=== PATIENT | male | born 1945 | race African-American/Black ===

== ENCOUNTER 2020-04-11 11:20 | Inpatient (IN) | payer OTHER, MEDICAID ==
[~2020-04-11] VITALS: Ht 185.4 cm; Wt 59.9 kg
[2020-04-11] MEDS ORDERED: Albuterol/Ipratropium 3ml neb HHN SCH (12:15)
[2020-04-11] MEDS ORDERED: Levalbuterol Inh UD 1.25mg/0.5ml ONE (12:19)
[2020-04-11] MEDS: Ipratropium 0.02% Inh Soln 2.5ml UD HHN SCH ×3 (12:25→13:15)
[2020-04-11] MEDS: Levalbuterol Inh UD 1.25mg/0.5ml HHN SCH ×3 (12:25→13:15)
[2020-04-11 12:30] VITALS: BP 150/87
[2020-04-11 12:33] LABS: HEMATOCRIT 48.1 % (42.0-52.0); HEMOGLOBIN 15.7 G/DL (14.2-18.0); MEAN CORPUSCULAR VOLUME 87 FL (80-99); PLATELET COUNT 275 K/UL (150-450); RED CELL DISTRIBUTION WIDTH 14.2 % (11.6-14.8); WHITE BLOOD COUNT 12.7 K/UL (4.8-10.8)
[2020-04-11 12:46] LABS: INR 1.2 (0.9-1.1)
[2020-04-11 13:00] LABS: ALANINE AMINOTRANSFERASE 14 U/L (12-78); ALBUMIN 2.6 G/DL (3.4-5.0); ALBUMIN/GLOBULIN RATIO 0.5 (1.0-2.7); ALKALINE PHOSPHATASE 61 U/L (46-116); ASPARTATE AMINO TRANSFERASE 27 U/L (15-37); BILIRUBIN,TOTAL 0.4 MG/DL (0.2-1.0); BLOOD UREA NITROGEN 68 mg/dL (7-18); CHLORIDE 104 MMOL/L (98-107); CREATININE 3.2 MG/DL (0.55-1.30); FERRITIN 779 NG/ML (8-388); LACTATE DEHYDROGENASE 199 U/L (81-234); POTASSIUM 4.4 MMOL/L (3.5-5.1); SODIUM 140 MMOL/L (136-145)
[2020-04-11 13:05] VITALS: BP 139/65
[2020-04-11 13:12] LABS: CARBON DIOXIDE 20 MMOL/L (21-32)
[2020-04-11] MEDS ORDERED: Azithromycin 500 MG in NS 275 ML IV ONE (13:15)
[2020-04-11] MEDS ORDERED: Enoxaparin 40mg Inj SUBQ ONE (13:15)
[2020-04-11] MEDS ORDERED: Piperacillin/Tazobactam 3.375 GM in NS 110 ML IVPB ONE (13:15)
[2020-04-11] MEDS ORDERED: dexAMETHasone 10mg/ml Inj IV ONE (13:15)
[2020-04-11 14:00] VITALS: BP 112/65
--- NOTE | 2020-04-11 14:48 | Emergency Room Report ---
History of Present Illness General Chief Complaint: General Complaint Source: Patient (Estiven Mckeon MD) Present Illness HPI 74-year-old female presents for evaluation. Brought in by EMS. Patient was in transit from [facility] to [facility] when he was hypoxic and tachycardic. Patient tested positive for Covid at [facility] ER. History of COPD. Patient was being transported when he remained tachycardic and hypoxic. Denies chest pain. Denies fevers or chills. States he was not aware he tested positive for Covid. No other aggravating relieving factors. 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 COVID-19 Screening: Positive COVID-19 COVID-19 Testing Source: this morning, per EMT (Estiven Mckeon MD) Patient History Past Medical History: COPD Past Surgical History: none Pertinent Family History: none Social History: Denies: smoking, alcohol use, drug use Immunizations: UTD Reviewed Nursing Documentation: PMH: Agreed; PSxH: Agreed (Estiven Mckeon MD) Review of Systems All Other Systems: negative except mentioned in HPI (Estiven Mckeon MD) Physical Exam Vital Signs Date Time Temp Pulse Resp B/P (MAP) Pulse Ox O2 Delivery O2 Flow Rate FiO2 04/11/20 11:20 98.2 120 18 136/86 (103) 96 Room Air 04/11/20 13:05 4.0 Sp02 EP Interpretation: reviewed, normal General Appearance: alert, GCS 15, non-toxic, mild distress Head: normocephalic, atraumatic Eyes: bilateral eye normal inspection, bilateral eye PERRL ENT: hearing grossly normal, normal pharynx, no angioedema, normal voice Neck: full range of motion, supple/symm/no masses Respiratory: chest non-tender, speaking full sentences, wheezing Cardiovascular #1: no edema, tachycardia Cardiovascular #2: 2+ carotid (R), 2+ carotid (L), 2+ radial (R), 2+ radial (L), 2+ dorsalis pedis (R), 2+ dorsalis pedis (L) Gastrointestinal: normal bowel sounds, non tender, soft, non-distended, no guarding, no rebound Rectal: deferred Genitourinary: normal inspection, no CVA tenderness Musculoskeletal: back normal, normal range of motion, gait/station normal, non- tender Neurologic: alert, motor strength/tone normal, oriented x3, sensory intact, responsive, speech normal Psychiatric: judgement/insight normal, memory normal, mood/affect normal, no suicidal/homicidal ideation Reflexes: 3+ bicep (R), 3+ bicep (L), 3+ tricep (R), 3+ tricep (L), 3+ knee (R), 3+ knee (L) Skin: other - See nursing notes Lymphatic: no adenopathy (Estiven Mckeon MD) Procedures Critical Care Time Critical Care Time i. I feel this is a highly complex case requiring extensive working including EKG/Rhythm strip, Xray/CT/US, Blood/urine lab work, repeat exams while in ED, and administration of strong opiates/narcotics for pain control, admission to hospital or close patient follow up. Total time: 60 min bedside evaluation and treatment excludes procedures (EKG). Reason for critical care: Hypoxia, COPD, respiratory distress, Covid positive Possible complications: hypotension, hypertension, AL, shock, arrhythmias, metabolic acidosis, end organ damage, respiratory failure. Interventions: Labs, EKG, chest x-ray, isolation room. Breathing treatments. Decadron. Lovenox. Antibiotics. Reassessment of vitals. Course: Patient presenting with hypoxia, tachycardia. Diagnosed with Covid. Wheezing. Breathing treatment started in negative pressure room. O2 sats improved. Tachycardia improving with IV fluids. Inflammatory markers elevated. D-dimer elevated. Given Decadron and Lovenox. Given broad-spectrum antibiotics. Consultations: nursing staff, EMS, family Performed by: Dr Mckeon Tolerated well condition = serious j. because of unstable vital signs this patient had a condition that could potentially threaten life or limb. I feel this is a critical patient who requ ired my full attention while patient was considered critical. Total Critical Care Time excluding procedures was greater than 60 minutes (Estiven Mckeon MD) Medical Decision Making Diagnostic Impression: Primary Impression: COVID-19 Additional Impressions: COPD exacerbation Renal failure Qualified Codes: N19 - Unspecified kidney failure ER Course Hospital Course 74-year-old male presents with shortness of breath, tachycardia. History of COPD. Positive Covid Differential diagnoses include: Pneumonia, CHF exacerbation, pneumothorax, fluid overload Clinical course Patient placed on stretcher. In isolation. I wore full PPE. Patient wheezing. Tachycardic. Nebulizer treatment started. IV fluids.. Labs - noted leukocytosis, hemoglobin/hematocrit stable, BUN/creatinine elevated, lactic okay, inflammatory markers elevated, D-dimer elevated Sinus tachycardia no acute ischemic changes interpreted by me CXR - hyperinflated lungs. patchy infiltrates noted abx given. Broad-spectrum antibiotics given. Decadron given. Tachycardia improving with IV fluids. Respiratory status improving. Patient initially was transferred from [facility] to custodial facility because he did not meet criteria for admission. Patient cannot be sa debbie discharged at this time. Case discussed with and he agreed to the patient to his service for further care and support I feel this is a highly complex case requiring extensive working including EKG/Rhythm strip, Xray/CT/US, Blood/urine lab work, repeat exams while in ED, and administration of strong opiates/narcotics for pain control, admission to hospital or close patient follow up. Diagnosis - COPD exacerbation , renal failure, COVID 19 Patient admitted to telemetry in serious condition Laboratory Tests Test 04/11/20 12:05 White Blood Count 12.7 K/UL (4.8-10.8) H Red Blood Count 5.50 M/UL (4.70-6.10) Hemoglobin 15.7 G/DL (14.2-18.0) Hematocrit 48.1 % (42.0-52.0) Mean Corpuscular Volume 87 FL (80-99) Mean Corpuscular Hemoglobin 28.6 PG (27.0-31.0) Mean Corpuscular Hemoglobin Concent 32.7 G/DL (32.0-36.0) Red Cell Distribution Width 14.2 % (11.6-14.8) Platelet Count 275 K/UL (150-450) Mean Platelet Volume 6.9 FL (6.5-10.1) Neutrophils (%) (Auto) % (45.0-75.0) Lymphocytes (%) (Auto) % (20.0-45.0) Monocytes (%) (Auto) % (1.0-10.0) Eosinophils (%) (Auto) % (0.0-3.0) Basophils (%) (Auto) % (0.0-2.0) Differential Total Cells Counted 100 Neutrophils % (Manual) 92 % (45-75) H Lymphocytes % (Manual) 6 % (20-45) L Monocytes % (Manual) 2 % (1-10) Eosinophils % (Manual) 0 % (0-3) Basophils % (Manual) 0 % (0-2) Band Neutrophils 0 % (0-8) Platelet Estimate Adequate Platelet Morphology Normal Red Blood Cell Morphology Normal Prothrombin Time 12.6 SEC (9.30-11.50) H Prothromb Time International Ratio 1.2 (0.9-1.1) H Activated Partial Thromboplast Time 37 SEC (23-33) H D-Dimer 0.88 mg/L FEU (0.00-0.49) H Sodium Level 140 MMOL/L (136-145) Potassium Level 4.4 MMOL/L (3.5-5.1) Chloride Level 104 MMOL/L (98-107) Carbon Dioxide Level 20 MMOL/L (21-32) L Blood Urea Nitrogen 68 mg/dL (7-18) H Creatinine 3.2 MG/DL (0.55-1.30) H Estimat Glomerular Filtration Rate 19.0 mL/min (>60) Glucose Level 114 MG/DL (74-106) H Lactic Acid Level 1.30 mmol/L (0.4-2.0) Calcium Level 9.0 MG/DL (8.5-10.1) Ferritin 779 NG/ML (8-388) H Total Bilirubin 0.4 MG/DL (0.2-1.0) Aspartate Amino Transf (AST/SGOT) 27 U/L (15-37) Alanine Aminotransferase (ALT/SGPT) 14 U/L (12-78) Alkaline Phosphatase 61 U/L (46-116) Lactate Dehydrogenase 199 U/L (81-234) Troponin I 0.047 ng/mL (0.000-0.056) C-Reactive Protein, Quantitative 30.3 mg/dL (0.00-0.90) H Pro-B-Type Natriuretic Peptide 1429 pg/mL (0-125) H Total Protein 8.2 G/DL (6.4-8.2) Albumin 2.6 G/DL (3.4-5.0) L Globulin 5.6 g/dL Albumin/Globulin Ratio 0.5 (1.0-2.7) L Lipase 45 U/L (73-393) L (Estiven Mckeon MD) ER Course Assumed care of the patient from the previous provider at approximately 1430. Please refer to initial note for full history and physical exam. Briefly, 74-year-old male with history of COPD and recent diagnosis COVID-19 diverted en route to SNF from another hospital for persistent tachycardia and hypoxia. Patient treated for COPD exacerbation, COVID-19 pneumonia and for elevated D-dimer. Received steroids, antibiotics, breathing treatments, IV fluids. Stable condition oxygenating well. Patient accepted by Dr. Nava who is the assigned hospitalist for the patient's healthcare plan. (Efe Dai MD) EKG Diagnostic Results Troponin ordered: Yes Rate: tachycardiac Rhythm: NSR ST Segments: no acute changes ASA given to the pt in ED: No (Estiven Mckeon MD) Rhythm Strip Diag. Results EP Interpretation: yes Rhythm: NSR, no PVC's, no ectopy (Estiven Mckeon MD) Chest X-Ray Diagnostic Results Chest X-Ray Diagnostic Results : Chest X-Ray Ordered: Yes # of Views/Limited/Complete: 1 View Indication: Shortness of Breath EP Interpretation: Yes Interpretation: no effusion, no pneumothorax, other - Hyperinflated lungs. Bilateral infiltrates Impression: Other - PNA, COPD Electronically Signed by: Electronically signed by Estiven Mckeon MD (Estiven Mckeon MD) Last Vital Signs Date Time Temp Pulse Resp B/P (MAP) Pulse Ox O2 Delivery O2 Flow Rate FiO2 04/11/20 13:05 99.8 102 18 139/65 98 Nasal Cannula 4.0 Status: improved (Estiven Mckeon MD) Disposition: ADMITTED INPATIENT Condition: Serious Referrals: [facility],REFERRING (PCP) Estiven Mckeon MD Apr 11, 2020 14:47 Efe Dai MD Apr 11, 2020 16:01
--- NOTE | 2020-04-11 15:01 | Diagnostic Imaging Report ---
Indication: Shortness of breath Technique: One view of the chest Comparison: none Findings: Infiltrate is seen occupying the right upper lobe. There is a left pleural effusion. Atelectasis or scarring is seen in the left midlung. The right lower lobe appears somewhat hyperinflated. Impression: Right upper lobe infiltrate, likely pneumonia Left pleural effusion Other findings as noted
[2020-04-11 15:26] LABS: APPEARANCE,URINE SLIGHTLY CLOUDY; BILIRUBIN, URINE NEGATIVE (NEGATIVE); COLOR,URINE PALE YELLOW; GLUCOSE, URINE (UA) NEGATIVE (NEGATIVE); KETONES,URINE NEGATIVE (NEGATIVE); LEUKOCYTE ESTERASE ,URINE 2+ (NEGATIVE); NITRITE,URINE POSITIVE (NEGATIVE); PH,URINE 5 (4.5-8.0); PROTEIN,URINE 3+ (NEGATIVE); UROBILINOGEN,URINE NORMAL MG/DL (0.0-1.0)
[2020-04-11 15:30] VITALS: BP 100/55
[2020-04-11] MEDS ORDERED: QUETIAPINE FUMA50 MG ORAL (16:13)
[2020-04-11] MEDS ORDERED: TRELEGY ELLIPT1 EAC1 IH (16:13)
[2020-04-11] MEDS ORDERED: ASPIRIN325 MG ORAL (16:13)
[2020-04-11] MEDS ORDERED: GABAPENTIN100 MG ORAL (16:13)
[2020-04-11] MEDS ORDERED: FLOMAX0.4 MG ORAL (16:13)
[2020-04-11] MEDS ORDERED: LANTUS SOL100 UNIT/1 SUBQ (16:13)
[2020-04-11] MEDS ORDERED: PROAIR HFA8.5 GM INH (16:13)
[2020-04-11] MEDS ORDERED: ATORVASTATIN CA40 MG ORAL (16:13)
[2020-04-11] MEDS ORDERED: LEXAPRO10 MG ORAL (16:13)
[2020-04-11] MEDS ORDERED: FORTEO2.4 ML SUBQ (16:13)
[2020-04-11] MEDS ORDERED: METOPROLOL SUCC50 MG ORAL (16:13)
[2020-04-11] MEDS ORDERED: AMLODIPINE BES2.5 MG ORAL (16:13)
[2020-04-11 16:35] VITALS: BP 108/50
[2020-04-11] MEDS: Heparin 5000 units/ml inj SUBQ SCH (19:39)
[2020-04-11 20:00] VITALS: BP 112/57
[2020-04-11] MEDS ORDERED: cefTRIAXone 1 GM in D5W 55 ML IVPB SCH (21:00)
[2020-04-11] MEDS: Docusate 100mg cap ORAL SCH (21:00)
--- NOTE | 2020-04-11 21:00 | History and Physical Report ---
DATE OF ADMISSION: 04/11/2020 HISTORY OF PRESENT ILLNESS: This is a 74-year-old male who was brought in by paramedics. The patient was then transferred from [facility] to [facility]. However, he was found to be hypoxic and tachycardic. The patient is known to be COVID-19 positive. The patient was admitted to the hospital because he was hypoxic and tachycardic. At this time, the patient is unable to provide any further history. PAST MEDICAL HISTORY: Notable for COPD, [id number] pneumonia. SURGERIES: None reported. PERSONAL AND FAMILY HISTORY: None. HOME MEDICATIONS: Reviewed, reconciled in chart. REVIEW OF SYSTEMS: Not obtainable. PHYSICAL EXAMINATION: GENERAL: A 74-year-old male. HEENT: Unremarkable. LUNGS: Clear breath sounds bilaterally. ABDOMEN: Soft. EXTREMITIES: There is no edema. NEUROLOGICAL: Nonfocal. VITAL SIGNS: Blood pressure is 100/60, heart rate is 95, respirations are 22, O2 saturation 97% on 4 L oxygen. T-max 100.8 degrees Fahrenheit. LABORATORY DATA: Lab testing shows white count 12.7, otherwise normal CBC and chemistries. Creatinine 3.2, ferritin 779. CRP 30.3. Coags are notable for D-dimer of 0.8. Elevated INR, 1.2. Urinalysis shows a few pus cells. IMAGING STUDIES: X-ray chest is obtained, which shows right upper lobe infiltrate as well as small right effusion. IMPRESSION: 1. COVID-19 pneumonia. 2. Renal failure. 3. History of COPD. DISCUSSION: Admit to the hospital. Continue home medications. Start broad-spectrum antibiotics. Consult ID. Consult Nephrology. Start Decadron. Consider remdesivir. DVT prophylaxis. We will follow carefully. Derrek Nava M.D. DR: BELGICA JOB#: [id number] CC:
[2020-04-12] VITALS: BP 112/73
[2020-04-12 04:00] VITALS: BP 114/70
[2020-04-12 07:27] LABS: HEMATOCRIT 39.3 % (42.0-52.0); HEMOGLOBIN 13.7 G/DL (14.2-18.0); MEAN CORPUSCULAR VOLUME 84 FL (80-99); PLATELET COUNT 217 K/UL (150-450); RED BLOOD COUNT 4.68 M/UL (4.70-6.10)
[2020-04-12 07:31] LABS: BLOOD UREA NITROGEN 64 mg/dL (7-18); CALCIUM 8.5 MG/DL (8.5-10.1); CHLORIDE 105 MMOL/L (98-107); CREATININE 3.2 MG/DL (0.55-1.30); POTASSIUM 5.1 MMOL/L (3.5-5.1); SODIUM 140 MMOL/L (136-145)
[2020-04-12 07:45] LABS: CARBON DIOXIDE 24 MMOL/L (21-32)
[2020-04-12 08:00] VITALS: BP 139/81
[2020-04-12] MEDS: Heparin 5000 units/ml inj SUBQ SCH ×2 (08:20→20:42)
[2020-04-12] MEDS: Docusate 100mg cap ORAL SCH ×2 (08:21→20:42)
--- NOTE | 2020-04-12 08:46 | Consultation ---
History of Present Illness General Chief Complaint: General Complaint Reason for Consultation: DEYSI on CKD Present Illness HPI 74-year-old female presents for evaluation. Brought in by EMS. Patient was in transit from [facility] to [facility] when he was hypoxic and tachycardic. Patient tested positive for Covid at [facility] ER. History of COPD. Patient was being transported when he remained tachycardic and hypoxic. Denies chest pain. Denies fevers or chills. States he was not aware he tested positive for Covid. No other aggravating relieving factors. Denies any other associated symptoms Allergies: Uncoded Allergies: VITAMIN B (Allergy, Unknown, 04/11/20) Medication History Scheduled Albuterol Sulfate* (Proair Hfa*), 2 PUFFS INH Q6H, (Reported) Amlodipine Besylate* (Amlodipine Besylate*), 2.5 MG ORAL DAILY, (Reported) Aspirin* (Aspirin*), 325 MG ORAL DAILY, (Reported) Atorvastatin Calcium* (Atorvastatin Calcium*), 40 MG ORAL BEDTIME, (Reported) Escitalopram Oxalate* (Lexapro*), 5 MG ORAL DAILY, (Reported) Gabapentin* (Gabapentin*), 300 MG ORAL QHS, (Reported) Insulin Glargine (Lantus), 0 SUBQ BEDTIME, (Reported) Metoprolol Succinate* (Metoprolol Succinate*), 50 MG ORAL DAILY, (Reported) Quetiapine Fumarate* (Quetiapine Fumarate*), 50 MG ORAL DAILY, (Reported) Tamsulosin HCl (Flomax), 0.4 MG ORAL DAILY, (Reported) Teriparatide Acetate (Forteo), 20 MCG SUBQ DAILY, (Reported) Miscellaneous Medications Fluticasone/Umeclidin/Vilanter (Trelegy Ellipta 200-62.5-25), 1 EACH IH, (Reported) Patient History Healthcare decision maker Resuscitation status Advanced Directive on File Review of Systems All Other Systems: negative except mentioned in HPI Physical Exam General Appearance: no apparent distress, alert Lines, tubes and drains: peripheral HEENT: normocephalic, atraumatic Neck: non-tender, normal alignment, supple Respiratory/Chest: chest wall non-tender, lungs clear, normal breath sounds Cardiovascular/Chest: normal peripheral pulses, normal rate, tachycardia Abdomen: normal bowel sounds, non tender, soft, no organomegaly Extremities: normal range of motion, non-tender Neurologic: alert, oriented x 3 Last 24 Hour Vital Signs Date Time Temp Pulse Resp B/P (MAP) Pulse Ox O2 Delivery O2 Flow Rate FiO2 04/12/20 04:00 91 04/12/20 04:00 97.5 81 20 114/70 (85) 97 04/12/20 00:00 97.3 83 20 112/73 (86) 96 04/12/20 00:00 77 04/11/20 21:00 Nasal Cannula 4.0 Nasal Cannula 4.0 04/11/20 20:00 97.4 86 20 112/57 (75) 96 04/11/20 20:00 81 04/11/20 18:15 Nasal Cannula 4.0 04/11/20 16:46 96 28 108/60 97 Nasal Cannula 4.0 04/11/20 16:35 118 32 108/50 98 Nasal Cannula 4.0 04/11/20 15:30 102 32 100/55 98 Nasal Cannula 4.0 04/11/20 14:00 133 24 112/65 98 Nasal Cannula 4.0 04/11/20 13:05 99.8 102 18 139/65 98 Nasal Cannula 4.0 04/11/20 13:04 99.8 04/11/20 12:30 112 32 150/87 98 Nasal Cannula 4.0 04/11/20 12:10 112 28 Nasal Cannula 4.0 04/11/20 11:20 98.2 120 18 136/86 (103) 96 Room Air Intake and Output 04/11/20 04/12/20 19:00 07:00 Intake Total 1385 ml Output Total 60 ml Balance 1325 ml Intake Oral 0 ml IV Total 1385 ml Output Urine Total 60 ml # Voids 5 Laboratory Tests Test 04/11/20 12:05 04/11/20 15:10 04/12/20 05:06 White Blood Count 12.7 K/UL (4.8-10.8) H 4.0 K/UL (4.8-10.8) #L Red Blood Count 5.50 M/UL (4.70-6.10) 4.68 M/UL (4.70-6.10) L Hemoglobin 15.7 G/DL (14.2-18.0) 13.7 G/DL (14.2-18.0) L Hematocrit 48.1 % (42.0-52.0) 39.3 % (42.0-52.0) L Mean Corpuscular Volume 87 FL (80-99) 84 FL (80-99) Mean Corpuscular Hemoglobin 28.6 PG (27.0-31.0) 29.3 PG (27.0-31.0) Mean Corpuscular Hemoglobin Concent 32.7 G/DL (32.0-36.0) 34.9 G/DL (32.0-36.0) Red Cell Distribution Width 14.2 % (11.6-14.8) 16.0 % (11.6-14.8) H Platelet Count 275 K/UL (150-450) 217 K/UL (150-450) Mean Platelet Volume 6.9 FL (6.5-10.1) 8.0 FL (6.5-10.1) Neutrophils (%) (Auto) % (45.0-75.0) % (45.0-75.0) Lymphocytes (%) (Auto) % (20.0-45.0) % (20.0-45.0) Monocytes (%) (Auto) % (1.0-10.0) % (1.0-10.0) Eosinophils (%) (Auto) % (0.0-3.0) % (0.0-3.0) Basophils (%) (Auto) % (0.0-2.0) % (0.0-2.0) Differential Total Cells Counted 100 Neutrophils % (Manual) 92 % (45-75) H Pending Lymphocytes % (Manual) 6 % (20-45) L Pending Monocytes % (Manual) 2 % (1-10) Eosinophils % (Manual) 0 % (0-3) Basophils % (Manual) 0 % (0-2) Band Neutrophils 0 % (0-8) Platelet Estimate Adequate Pending Platelet Morphology Normal Pending Red Blood Cell Morphology Normal Prothrombin Time 12.6 SEC (9.30-11.50) H Prothromb Time International Ratio 1.2 (0.9-1.1) H Activated Partial Thromboplast Time 37 SEC (23-33) H D-Dimer 0.88 mg/L FEU (0.00-0.49) H Sodium Level 140 MMOL/L (136-145) 140 MMOL/L (136-145) Potassium Level 4.4 MMOL/L (3.5-5.1) 5.1 MMOL/L (3.5-5.1) Chloride Level 104 MMOL/L (98-107) 105 MMOL/L (98-107) Carbon Dioxide Level 20 MMOL/L (21-32) L 24 MMOL/L (21-32) Blood Urea Nitrogen 68 mg/dL (7-18) H 64 mg/dL (7-18) H Creatinine 3.2 MG/DL (0.55-1.30) H 3.2 MG/DL (0.55-1.30) H Estimat Glomerular Filtration Rate 19.0 mL/min (>60) 23.0 mL/min (>60) Glucose Level 114 MG/DL (74-106) H 205 MG/DL (74-106) H Lactic Acid Level 1.30 mmol/L (0.4-2.0) Calcium Level 9.0 MG/DL (8.5-10.1) 8.5 MG/DL (8.5-10.1) Ferritin 779 NG/ML (8-388) H Total Bilirubin 0.4 MG/DL (0.2-1.0) Aspartate Amino Transf (AST/SGOT) 27 U/L (15-37) Alanine Aminotransferase (ALT/SGPT) 14 U/L (12-78) Alkaline Phosphatase 61 U/L (46-116) Lactate Dehydrogenase 199 U/L (81-234) Troponin I 0.047 ng/mL (0.000-0.056) C-Reactive Protein, Quantitative 30.3 mg/dL (0.00-0.90) H Pro-B-Type Natriuretic Peptide 1429 pg/mL (0-125) H Total Protein 8.2 G/DL (6.4-8.2) Albumin 2.6 G/DL (3.4-5.0) L Globulin 5.6 g/dL Albumin/Globulin Ratio 0.5 (1.0-2.7) L Lipase 45 U/L (73-393) L Urine Color Pale yellow Urine Appearance Slightly cloudy Urine pH 5 (4.5-8.0) Urine Specific [place] 1.015 (1.005-1.035) Urine Protein 3+ (NEGATIVE) H Urine Glucose (UA) Negative (NEGATIVE) Urine Ketones Negative (NEGATIVE) Urine Blood 4+ (NEGATIVE) H Urine Nitrite Positive (NEGATIVE) H Urine Bilirubin Negative (NEGATIVE) Urine Urobilinogen Normal MG/DL (0.0-1.0) Urine Leukocyte Esterase 2+ (NEGATIVE) H Urine RBC 10-15 /HPF (0 - 0) H Urine WBC 20-30 /HPF (0 - 0) H Urine Squamous Epithelial Cells Occasional /LPF Urine Bacteria Many /HPF (NONE) H Height (Feet): 6 Height (Inches): 1.00 Weight (Pounds): 132 Medications Current Medications Medications (Trade) Dose Ordered Sig/Lewis Route PRN Reason Start Time Stop Time Status Last Admin Dose Admin Acetaminophen (Tylenol) 650 mg Q4H PRN ORAL For Pain 04/11/20 18:00 05/11/20 17:59 Azithromycin 500 mg/Dextrose 275 ml @ 275 mls/hr Q24H IV 04/12/20 09:00 04/17/20 08:59 Ceftriaxone Sodium 1 gm/ Dextrose 55 ml @ 110 mls/hr Q24H IVPB 04/11/20 21:00 04/18/20 20:59 04/11/20 21:00 Dextrose (Dextrose 50%) 25 ml Q30M PRN IV Hypoglycemia 04/11/20 18:00 07/10/20 17:59 Dextrose (Dextrose 50%) 50 ml Q30M PRN IV Hypoglycemia 04/11/20 18:00 07/10/20 17:59 Docusate Sodium (Colace) 100 mg EVERY 12 HOURS ORAL 04/11/20 21:00 05/11/20 20:59 04/12/20 08:21 Famotidine (Pepcid) 40 mg DAILY ORAL 04/12/20 09:00 07/11/20 08:59 04/12/20 08:21 Heparin Sodium (Porcine) (Heparin 5000 units/ml) 5,000 units EVERY 12 HOURS SUBQ 04/11/20 18:07 05/26/20 18:06 04/12/20 08:20 Sodium Chloride 1,000 ml @ 50 mls/hr Q20H IV 04/11/20 19:00 05/11/20 18:59 04/11/20 19:00 Assessment/Plan Diagnosis [place] I: #DEYSI on CKD #COVID pneumonia #hypoxemic resp failure #leukocytosis - check urine chem - check renal US - 1/2NS at 50 cc/hr - continue antibiotics - ceftriaxone and doxy - monitor BMP, mag and phos - strict I&Os - avoid nephrotoxins - monitor weights Time spent 65 min Rocco Messina M.D. Apr 12, 2020 08:46
[2020-04-12] MEDS: Azithromycin 500 MG in D5W 275 ML IV SCH (08:52)
[2020-04-12 12:00] VITALS: BP 138/82
[2020-04-12 14:37] LABS: APPEARANCE,URINE SLIGHTLY CLOUDY; BILIRUBIN, URINE NEGATIVE (NEGATIVE); COLOR,URINE PALE YELLOW; GLUCOSE, URINE (UA) NEGATIVE (NEGATIVE); KETONES,URINE NEGATIVE (NEGATIVE); LEUKOCYTE ESTERASE ,URINE 3+ (NEGATIVE); NITRITE,URINE POSITIVE (NEGATIVE); PH,URINE 5 (4.5-8.0); PROTEIN,URINE 3+ (NEGATIVE); UROBILINOGEN,URINE NORMAL MG/DL (0.0-1.0)
--- NOTE | 2020-04-12 15:21 | Pulmonology Progress Note ---
Subjective Interval Events: None new Constitutional: Reports: no symptoms HEENT: Repors: no symptoms Respiratory: Reports: no symptoms Cardiovascular: Reports: no symptoms Gastrointestinal/Abdominal: Reports: no symptoms Genitourinary: Reports: no symptoms Allergies: Uncoded Allergies: VITAMIN B (Allergy, Unknown, 04/11/20) Objective Last 24 Hour Vital Signs Date Time Temp Pulse Resp B/P (MAP) Pulse Ox O2 Delivery O2 Flow Rate FiO2 04/12/20 12:00 86 04/12/20 12:00 97.5 84 21 138/82 (100) 99 04/12/20 09:00 Nasal Cannula 4.0 Nasal Cannula 4.0 04/12/20 08:00 92 04/12/20 08:00 97.5 91 19 139/81 (100) 96 04/12/20 04:00 91 04/12/20 04:00 97.5 81 20 114/70 (85) 97 04/12/20 00:00 97.3 83 20 112/73 (86) 96 04/12/20 00:00 77 04/11/20 21:00 Nasal Cannula 4.0 Nasal Cannula 4.0 04/11/20 20:00 97.4 86 20 112/57 (75) 96 04/11/20 20:00 81 04/11/20 18:15 Nasal Cannula 4.0 04/11/20 16:46 96 28 108/60 97 Nasal Cannula 4.0 04/11/20 16:35 118 32 108/50 98 Nasal Cannula 4.0 04/11/20 15:30 102 32 100/55 98 Nasal Cannula 4.0 Intake and Output 04/11/20 04/12/20 19:00 07:00 Intake Total 1385 ml Output Total 60 ml Balance 1325 ml Intake Oral 0 ml IV Total 1385 ml Output Urine Total 60 ml # Voids 5 General Appearance: no acute distress HEENT: normocephalic Respiratory: chest wall non-tender, lungs clear Cardiovascular: normal peripheral pulses Abdomen: normal bowel sounds, soft, non tender Extremities: no cyanosis Laboratory Tests 04/12/20 05:06: White Blood Count 4.0#L, Red Blood Count 4.68L, Hemoglobin 13.7L, Hematocrit 39.3L, Mean Corpuscular Volume 84, Mean Corpuscular Hemoglobin 29.3, Mean Corpuscular Hemoglobin Concent 34.9, Red Cell Distribution Width 16.0H, Platelet Count 217, Mean Platelet Volume 8.0, Neutrophils (%) (Auto) , Lymphocytes (%) (Auto) , Monocytes (%) (Auto) , Eosinophils (%) (Auto) , Basophils (%) (Auto) , Differential Total Cells Counted 100, Neutrophils % (Manual) 95H, Lymphocytes % (Manual) 4L, Monocytes % (Manual) 1, Eosinophils % (Manual) 0, Basophils % (Manu al) 0, Band Neutrophils 0, Platelet Estimate Adequate, Platelet Morphology Normal, Sodium Level 140, Potassium Level 5.1, Chloride Level 105, Carbon Dioxide Level 24, Blood Urea Nitrogen 64H, Creatinine 3.2H, Estimat Glomerular Filtration Rate 23.0, Glucose Level 205H, Calcium Level 8.5 04/12/20 14:30: Urine Color Pale yellow, Urine Appearance Slightly cloudy, Urine pH 5, Urine Specific [place] 1.020, Urine Protein 3+H, Urine Glucose (UA) Negative, Urine Ketones Negative, Urine Blood 3+H, Urine Nitrite PositiveH, Urine Bilirubin Negative, Urine Urobilinogen Normal, Urine Leukocyte Esterase 3+H, Urine RBC 2- 4H, Urine WBC 30-40H, Urine Squamous Epithelial Cells Occasional, Urine Bacteria Few, Urine Random Creatinine [Pending], Urine Random Microalbumin [Pending], Urine Random Sodium 45, Urine Creatinine 121.2, Urine Microalbumin/Creatinine Ratio [Pending] Current Medications Medications (Trade) Dose Ordered Sig/Lewis Route PRN Reason Start Time Stop Time Status Last Admin Dose Admin Acetaminophen (Tylenol) 650 mg Q4H PRN ORAL For Pain 04/11/20 18:00 05/11/20 17:59 Azithromycin 500 mg/Dextrose 275 ml @ 275 mls/hr Q24H IV 04/12/20 09:00 04/17/20 08:59 04/12/20 08:52 Ceftriaxone Sodium 1 gm/ Dextrose 55 ml @ 110 mls/hr Q24H IVPB 04/11/20 21:00 04/18/20 20:59 04/11/20 21:00 Dextrose (Dextrose 50%) 25 ml Q30M PRN IV Hypoglycemia 04/11/20 18:00 07/10/20 17:59 Dextrose (Dextrose 50%) 50 ml Q30M PRN IV Hypoglycemia 04/11/20 18:00 07/10/20 17:59 Docusate Sodium (Colace) 100 mg EVERY 12 HOURS ORAL 04/11/20 21:00 05/11/20 20:59 04/12/20 08:21 Famotidine (Pepcid) 40 mg DAILY ORAL 04/12/20 09:00 07/11/20 08:59 04/12/20 08:21 Heparin Sodium (Porcine) (Heparin 5000 units/ml) 5,000 units EVERY 12 HOURS SUBQ 04/11/20 18:07 05/26/20 18:06 04/12/20 08:20 Sodium Chloride 1,000 ml @ 50 mls/hr Q20H IV 04/11/20 19:00 05/11/20 18:59 04/11/20 19:00 Assessment/Plan Assessment/Plan IMPRESSION: 1. COVID-19 pneumonia. 2. Renal failure. 3. History of COPD. DISCUSSION: Continue home medications. Continue broad-spectrum antibiotics. Consulted ID and Nephrology. Continue Decadron. Consider remdesivir (defer to ID). DVT prophylaxis. I will follow carefully. Added [place] Samuel Shoemaker Omar Syed MD Apr 12, 2020 15:21
[2020-04-12] MEDS: HYDROcodone/Acetamin 5/325 tab ORAL PRN (15:57)
[2020-04-12 16:00] VITALS: BP 128/72
--- NOTE | 2020-04-12 17:09 | Diagnostic Imaging Report ---
Indication: Acute renal failure Technique: Grayscale and duplex images of the kidneys, retroperitoneum, and bladder were obtained. Comparison: none Findings: Right kidney measures 11.2 cm in length. Left kidney measures 8.4 cm in length. Both kidneys demonstrate increased echogenicity. No hydronephrosis. There are renal cysts bilaterally. Normal inferior vena cava. Bladder is normal. Impression: Negative for hydronephrosis Echogenic kidneys bilaterally, associated with medical renal disease Incidental finding bilateral renal cysts.
--- NOTE | 2020-04-12 17:51 | Infectious Diseases Prog Note ---
Assessment/Plan Assessment/Plan Full consult dictated: A) 1) pneumonia - ? aspiration pna, ? cap 2) hx covid in past 3) pmh noted 4) allergies - vitamin B P) 1) ceftriaxone, flagyl, azithromycin 2) check labs, chest x-ray 3) d/w Dr. Nava 4) thank you Subjective Allergies: Uncoded Allergies: VITAMIN B (Allergy, Unknown, 04/11/20) Objective Last 24 Hour Vital Signs Date Time Temp Pulse Resp B/P (MAP) Pulse Ox O2 Delivery O2 Flow Rate FiO2 04/12/20 12:00 86 04/12/20 12:00 97.5 84 21 138/82 (100) 99 04/12/20 09:00 Nasal Cannula 4.0 Nasal Cannula 4.0 04/12/20 08:00 92 04/12/20 08:00 97.5 91 19 139/81 (100) 96 04/12/20 04:00 91 04/12/20 04:00 97.5 81 20 114/70 (85) 97 04/12/20 00:00 97.3 83 20 112/73 (86) 96 04/12/20 00:00 77 04/11/20 21:00 Nasal Cannula 4.0 Nasal Cannula 4.0 04/11/20 20:00 97.4 86 20 112/57 (75) 96 04/11/20 20:00 81 04/11/20 18:15 Nasal Cannula 4.0 Height (Feet): 6 Height (Inches): 1.00 Weight (Pounds): 132 Laboratory Tests Test 04/12/20 05:06 04/12/20 14:30 White Blood Count 4.0 K/UL (4.8-10.8) #L Red Blood Count 4.68 M/UL (4.70-6.10) L Hemoglobin 13.7 G/DL (14.2-18.0) L Hematocrit 39.3 % (42.0-52.0) L Mean Corpuscular Volume 84 FL (80-99) Mean Corpuscular Hemoglobin 29.3 PG (27.0-31.0) Mean Corpuscular Hemoglobin Concent 34.9 G/DL (32.0-36.0) Red Cell Distribution Width 16.0 % (11.6-14.8) H Platelet Count 217 K/UL (150-450) Mean Platelet Volume 8.0 FL (6.5-10.1) Neutrophils (%) (Auto) % (45.0-75.0) Lymphocytes (%) (Auto) % (20.0-45.0) Monocytes (%) (Auto) % (1.0-10.0) Eosinophils (%) (Auto) % (0.0-3.0) Basophils (%) (Auto) % (0.0-2.0) Differential Total Cells Counted 100 Neutrophils % (Manual) 95 % (45-75) H Lymphocytes % (Manual) 4 % (20-45) L Monocytes % (Manual) 1 % (1-10) Eosinophils % (Manual) 0 % (0-3) Basophils % (Manual) 0 % (0-2) Band Neutrophils 0 % (0-8) Platelet Estimate Adequate Platelet Morphology Normal Sodium Level 140 MMOL/L (136-145) Potassium Level 5.1 MMOL/L (3.5-5.1) Chloride Level 105 MMOL/L (98-107) Carbon Dioxide Level 24 MMOL/L (21-32) Blood Urea Nitrogen 64 mg/dL (7-18) H Creatinine 3.2 MG/DL (0.55-1.30) H Estimat Glomerular Filtration Rate 23.0 mL/min (>60) Glucose Level 205 MG/DL (74-106) H Calcium Level 8.5 MG/DL (8.5-10.1) Urine Color Pale yellow Urine Appearance Slightly cloudy Urine pH 5 (4.5-8.0) Urine Specific [place] 1.020 (1.005-1.035) Urine Protein 3+ (NEGATIVE) H Urine Glucose (UA) Negative (NEGATIVE) Urine Ketones Negative (NEGATIVE) Urine Blood 3+ (NEGATIVE) H Urine Nitrite Positive (NEGATIVE) H Urine Bilirubin Negative (NEGATIVE) Urine Urobilinogen Normal MG/DL (0.0-1.0) Urine Leukocyte Esterase 3+ (NEGATIVE) H Urine RBC 2-4 /HPF (0 - 0) H Urine WBC 30-40 /HPF (0 - 0) H Urine Squamous Epithelial Cells Occasional /LPF Urine Bacteria Few /HPF (NONE) Urine Random Creatinine Pending Urine Random Microalbumin Pending Urine Random Sodium 45 mmol/L (20-110) Urine Creatinine 121.2 MG/DL (30.0-125.0) Urine Microalbumin/Creatinine Ratio Pending Current Medications Medications (Trade) Dose Ordered Sig/Lewis Route PRN Reason Start Time Stop Time Status Last Admin Dose Admin Acetaminophen (Tylenol) 650 mg Q4H PRN ORAL pain 1-3 04/11/20 18:00 05/11/20 17:59 Acetaminophen/ Hydrocodone Bitart ([place] 5/325) 1 tab Q6H PRN ORAL pain 4-10 04/12/20 15:30 04/19/20 15:29 04/12/20 15:57 Azithromycin 500 mg/Dextrose 275 ml @ 275 mls/hr Q24H IV 04/12/20 09:00 04/17/20 08:59 04/12/20 08:52 Ceftriaxone Sodium 1 gm/ Dextrose 55 ml @ 110 mls/hr Q24H IVPB 04/11/20 21:00 04/18/20 20:59 04/11/20 21:00 Dextrose (Dextrose 50%) 25 ml Q30M PRN IV Hypoglycemia 04/11/20 18:00 07/10/20 17:59 Dextrose (Dextrose 50%) 50 ml Q30M PRN IV Hypoglycemia 04/11/20 18:00 07/10/20 17:59 Docusate Sodium (Colace) 100 mg EVERY 12 HOURS ORAL 04/11/20 21:00 05/11/20 20:59 04/12/20 08:21 Famotidine (Pepcid) 40 mg DAILY ORAL 04/12/20 09:00 07/11/20 08:59 04/12/20 08:21 Heparin Sodium (Porcine) (Heparin 5000 units/ml) 5,000 units EVERY 12 HOURS SUBQ 04/11/20 18:07 05/26/20 18:06 04/12/20 08:20 Sodium Chloride 1,000 ml @ 50 mls/hr Q20H IV 04/11/20 19:00 05/11/20 18:59 04/12/20 17:30 Be Proctor MD Apr 12, 2020 17:51
[2020-04-12 20:00] VITALS: BP 145/87
--- NOTE | 2020-04-12 20:30 | Consultation ---
DATE OF CONSULTATION: 04/12/2020 INFECTIOUS DISEASE CONSULTATION CONSULTING PHYSICIAN: Be Proctor MD. ATTENDING PHYSICIAN: Derrek Nava MD. REFERRING PHYSICIAN: Derrek Nava MD. REASON FOR CONSULTATION: Pneumonia, COVID infection, fevers, leukocytosis. CHIEF COMPLAINT: The patient's chief complaint into the hospital is COPD exacerbation, short of breath, pneumonia. HISTORY OF PRESENT ILLNESS: This is a very pleasant 74-year-old male who comes into [facility] with hypoxia and COPD exacerbation. The patient was noted to have pneumonia on chest x-ray. He is currently in COVID isolation. I think COVID testing here is negative. I discussed with Dr. Nava, it looks like he has a history of COVID infection in the past. It is unclear how long, but seems more remote than recent in discussion with Dr. Nava. It looks like [facility] and he went to an [facility]. It is unclear how he was treated for the COVID in the past. The patient was noted on chest x-ray to have pneumonia. This certainly could be related to COVID infection. However, he also could have based on location, aspiration pneumonia or community-acquired pneumonia. The patient will be placed on Rocephin, azithromycin, and Flagyl. Case was discussed with Dr. Nava. At this time because of what sounds like a past history of COVID, we will hold off on steroids, dexamethasone but he might need it if he does not improve. Clinically, he seems to be fairly stable at this time. REVIEW OF SYSTEMS: CONSTITUTIONAL: The patient had low-grade fevers, but currently is afebrile. HEAD AND NECK: No head pain or neck pain. CARDIAC: No chest pain. PULMONARY: Mild shortness of breath. No hemoptysis or secretions. No chest pain. GASTROINTESTINAL: No nausea, vomiting, or diarrhea. GENITOURINARY: No Oneal. No dysuria or frequency. SKIN: No rash. NEUROLOGICAL: No seizures. Generalized fatigue. No focal weakness. No joint pain or leg pain. PAST MEDICAL HISTORY: The patient has a past medical history of being positive for COVID in the past. The patient has history of renal failure and COPD. Unclear history of hypertension or diabetes. ALLERGIES: Vitamin D. SOCIAL HISTORY: I believe currently negative for smoking, alcohol, drug abuse. FAMILY HISTORY: Noncontributory. MEDICATIONS: Upon reviewing the MAR, he is on following medications. He is on hydrocodone, acetaminophen, azithromycin, Rocephin, Flagyl, docusate, heparin, dexamethasone, acetaminophen, Xopenex, and albuterol. Outside medications noted and reconciliated. PHYSICAL EXAMINATION: VITAL SIGNS: Temperature is 97.5, pulse 86, respiratory rate 21, blood pressure 138/82. Saturation 99% on 4 L. T-max 99.7. GENERAL: Alert, responsive, seems to be oriented. HEAD AND NECK: Oral exam, no thrush. Eye exam, no icterus. Normocephalic. Neck is supple. No JVD. No shortness of breath noted. HEART: Regular. No gallop or murmur. LUNGS: Few bilateral rhonchi and rales, more so on the right. ABDOMEN: Soft. Positive bowel sounds. Nontender. SKIN: No rash. MUSCULOSKELETAL: No effusions. Legs are without cellulitis. PERIPHERAL VASCULAR: No cyanosis or gangrene. GENITOURINARY: No Oneal. LINE SITES: Without phlebitis. NEUROLOGIC: Intact. Alert and oriented. LABORATORY DATA: White count on admission 12.7, now white count is 4.0, hemoglobin 13.7. Creatinine is 3.2. LFTs noted. CRP is 30.3. IMAGING: Chest x-ray showed right upper lobe infiltrate, likely pneumonia. COVID testing here is pending, but outside COVID testing was positive. ASSESSMENT AND PLAN: 1. The patient has history of COVID-19 infection. Upon reviewing the records it is unclear if he was tested positive at the ER of [facility] when he was being transferred to a group home facility. Unclear how old is the COVID diagnosis. Of note, his CRP is elevated significantly. Continue antibiotics. We will change to Zosyn and azithromycin and consider also vancomycin. If he has been at [facility] or recent hospitalization consider MRSA and gram negatives in addition to aspiration pathogens. Continue vancomycin, Zosyn, and azithromycin for now and check followup laboratories and chest x-ray. Continue treatment for pneumonia, possible bacterial pneumonia. COVID infection, I would consider steroids, as the patient has hypoxia and elevated CRP. Remdesivir relatively is not recommended in a patient with renal failure with GFR less than 30, which the patient certainly has. Continue Zosyn, vancomycin, and azithromycin. Again, consider dexamethasone. Case was discussed with Dr. Nava. Continue treatment for possible bacterial pneumonia and COVID infection. Isolation for COVID infection with pneumonia. 2. Renal failure. 3. COVID-19 infection history. 4. The patient is anemic. 5. No history of diabetes and hypertension. 6. Renal failure. Treatment per Renal and Medicine. 7. Allergy to vitamin D. 8. Social history is negative. 9. Family history is noncontributory. 10. MAR is noted. 11. Case was discussed with RN. 12. COVID isolation. 13. Case was discussed with Dr. Nava. Be Proctor M.D. DR: ALEXANDER JOB#: [id number] CC:
[2020-04-12] MEDS ORDERED: metroNIDAZOLE 500mg tab ORAL SCH (22:00)
[2020-04-13] VITALS (7 sets, daily range): BP systolic 128–158; BP diastolic 85–92
[2020-04-13 07:24] LABS: HEMATOCRIT 39.2 % (42.0-52.0); HEMOGLOBIN 13.2 G/DL (14.2-18.0); MEAN CORPUSCULAR VOLUME 86 FL (80-99); PLATELET COUNT 184 K/UL (150-450); RED BLOOD COUNT 4.54 M/UL (4.70-6.10); RED CELL DISTRIBUTION WIDTH 16.3 % (11.6-14.8); WHITE BLOOD COUNT 6.7 K/UL (4.8-10.8)
[2020-04-13 07:49] LABS: ALBUMIN 2.1 G/DL (3.4-5.0); ALBUMIN/GLOBULIN RATIO 0.5 (1.0-2.7); BILIRUBIN,TOTAL 0.2 MG/DL (0.2-1.0); CALCIUM 8.7 MG/DL (8.5-10.1); CREATININE 2.8 MG/DL (0.55-1.30)
[2020-04-13] MEDS: dexAMETHasone 10mg/ml Inj IV SCH (08:10)
[2020-04-13] MEDS: HYDROcodone/Acetamin 5/325 tab ORAL PRN (08:11)
[2020-04-13] MEDS: Azithromycin 500 MG in D5W 275 ML IV SCH (08:12)
[2020-04-13] MEDS: Docusate 100mg cap ORAL SCH ×2 (08:13→20:26)
[2020-04-13] MEDS: Heparin 5000 units/ml inj SUBQ SCH ×2 (08:13→20:25)
--- NOTE | 2020-04-13 09:40 | Nephrology Progress Note ---
Assessment/Plan Plan #DEYSI on CKD #COVID pneumonia #hypoxemic resp failure #leukocytosis - check urine chem - check renal US - 1/2NS at 50 cc/hr - continue antibiotics - ceftriaxone and doxy - monitor BMP, mag and phos - strict I&Os - avoid nephrotoxins - monitor weights Time spent 65 min Subjective ROS Limited/Unobtainable: No Constitutional: Reports: weakness HEENT: Denies: no symptoms, eye pain, blurred vision, tearing, double vision, ear pain, ear discharge, nose pain, nose congestion, throat pain, throat swelling, mouth pain, mouth swelling, other Genitourinary: Denies: no symptoms, burning, discharge, frequency, flank pain, hematuria, incontinence, pain, urgency, other Neurologic/Psychiatric: Denies: no symptoms, anxiety, depressed, emotional problems, headache, numbness, paresthesia, pre-existing deficit, seizure, tingling, tremors, weakness, other Subjective Cr downtrending breathing stable Objective Objective Last 24 Hour Vital Signs Date Time Temp Pulse Resp B/P (MAP) Pulse Ox O2 Delivery O2 Flow Rate FiO2 04/13/20 04:00 97.4 78 21 153/92 (112) 96 04/13/20 04:00 81 04/13/20 00:00 97.2 77 21 146/85 (105) 97 04/12/20 22:00 Nasal Cannula 4.0 Nasal Cannula 4.0 04/12/20 21:00 Nasal Cannula 4.0 Nasal Cannula 4.0 04/12/20 20:00 92 04/12/20 20:00 97.5 86 21 145/87 (106) 97 04/12/20 16:00 98.2 80 20 128/72 (90) 99 04/12/20 16:00 80 04/12/20 12:00 86 04/12/20 12:00 97.5 84 21 138/82 (100) 99 Intake and Output 04/12/20 04/13/20 19:00 07:00 # Voids 3 3 # Bowel Movements 1 Laboratory Tests 04/12/20 14:30: Urine Color Pale yellow, Urine Appearance Slightly cloudy, Urine pH 5, Urine Specific [place] 1.020, Urine Protein 3+H, Urine Glucose (UA) Negative, Urine Ketones Negative, Urine Blood 3+H, Urine Nitrite PositiveH, Urine Bilirubin Negative, Urine Urobilinogen Normal, Urine Leukocyte Esterase 3+H, Urine RBC 2- 4H, Urine WBC 30-40H, Urine Squamous Epithelial Cells Occasional, Urine Bacteria Few, Urine Random Creatinine [Pending], Urine Random Microalbumin [Pending], Urine Random Sodium 45, Urine Creatinine 121.2, Urine Microalbumin/Creatinine Ratio [Pending] 04/13/20 06:25: White Blood Count 6.7#, Red Blood Count 4.54L, Hemoglobin 13.2L, Hematocrit 39.2L, Mean Corpuscular Volume 86, Mean Corpuscular Hemoglobin 29.1, Mean Corpuscular Hemoglobin Concent 33.7, Red Cell Distribution Width 16.3H, Platelet Count 184, Mean Platelet Volume 6.8, Neutrophils (%) (Auto) , Lymphocytes (%) (Auto) , Monocytes (%) (Auto) , Eosinophils (%) (Auto) , Basophils (%) (Auto) , Neutrophils % (Manual) [Pending], Lymphocytes % (Manual) [Pending], Platelet Estimate [Pending], Platelet Morphology [Pending], Sodium Level 142, Potassium Level 5.0, Chloride Level 110H, Carbon Dioxide Level 23, Anion Gap 9, Blood Urea Nitrogen 65H, Creatinine 2.8H, Estimat Glomerular Filtration Rate 26.9, Glucose Level 166H, Calcium Level 8.7, Phosphorus Level 4.0, Magnesium Level 1.9, Total Bilirubin 0.2, Aspartate Amino Transf (AST/SGOT) 15, Alanine Aminotransferase (ALT/SGPT) 12, Alkaline Phosphatase 46, Total Protein 6.5, Albumin 2.1L, Globulin 4.4, Albumin/Globulin Ratio 0.5L Height (Feet): 6 Height (Inches): 1.00 Weight (Pounds): 132 General Appearance: no apparent distress, alert EENT: PERRL/EOMI, normal ENT inspection Neck: non-tender, normal alignment Cardiovascular: normal peripheral pulses, normal rate Respiratory/Chest: chest wall non-tender, lungs clear, rhonchi - bilaterally Abdomen: normal bowel sounds, non tender, soft Neurologic: alert, oriented x 3 Rocco Messina M.D. Apr 13, 2020 09:40
--- NOTE | 2020-04-13 10:48 | Pulmonology Progress Note ---
Subjective ROS Limited/Unobtainable: No Interval Events: None new Constitutional: Reports: no symptoms HEENT: Repors: no symptoms Respiratory: Reports: no symptoms Cardiovascular: Reports: no symptoms Gastrointestinal/Abdominal: Reports: no symptoms Genitourinary: Reports: no symptoms Allergies: Uncoded Allergies: VITAMIN B (Allergy, Unknown, 04/11/20) Subjective pt reports severe chronic leg/back pain despite am dose of [place]; pain scale 7/10 Objective Last 24 Hour Vital Signs Date Time Temp Pulse Resp B/P (MAP) Pulse Ox O2 Delivery O2 Flow Rate FiO2 04/13/20 09:00 Nasal Cannula 4.0 Nasal Cannula 4.0 04/13/20 08:00 98.7 84 19 128/89 (102) 96 04/13/20 04:00 97.4 78 21 153/92 (112) 96 04/13/20 04:00 81 04/13/20 00:00 97.2 77 21 146/85 (105) 97 04/12/20 22:00 Nasal Cannula 4.0 Nasal Cannula 4.0 04/12/20 21:00 Nasal Cannula 4.0 Nasal Cannula 4.0 04/12/20 20:00 92 04/12/20 20:00 97.5 86 21 145/87 (106) 97 04/12/20 16:00 98.2 80 20 128/72 (90) 99 04/12/20 16:00 80 04/12/20 12:00 86 04/12/20 12:00 97.5 84 21 138/82 (100) 99 Intake and Output 04/12/20 04/13/20 19:00 07:00 # Voids 3 3 # Bowel Movements 1 Objective pt laying in bed; reports some ambulation yesterday General Appearance: no acute distress HEENT: normocephalic, mucous membranes moist Respiratory: chest wall non-tender, lungs clear Cardiovascular: normal peripheral pulses Abdomen: normal bowel sounds, soft, non tender Extremities: no cyanosis, no edema Microbiology Date/Time Source Procedure Growth Status 04/11/20 15:10 Urine,Clean Catch Urine Culture - Preliminary Gram Negative Ash Resulted 04/11/20 12:05 Blood Blood Culture - Preliminary NO GROWTH AFTER 24 HOURS Resulted 04/11/20 12:05 Blood Blood Culture - Preliminary NO GROWTH AFTER 24 HOURS Resulted Laboratory Tests 04/12/20 14:30: Urine Color Pale yellow, Urine Appearance Slightly cloudy, Urine pH 5, Urine Specific [place] 1.020, Urine Protein 3+H, Urine Glucose (UA) Negative, Urine Ketones Negative, Urine Blood 3+H, Urine Nitrite PositiveH, Urine Bilirubin Negative, Urine Urobilinogen Normal, Urine Leukocyte Esterase 3+H, Urine RBC 2- 4H, Urine WBC 30-40H, Urine Squamous Epithelial Cells Occasional, Urine Bacteria Few, Urine Random Creatinine [Pending], Urine Random Microalbumin [Pending], Urine Random Sodium 45, Urine Creatinine 121.2, Urine Microalbumin/Creatinine Ratio [Pending] 04/13/20 06:25: White Blood Count 6.7#, Red Blood Count 4.54L, Hemoglobin 13.2L, Hematocrit 39.2L, Mean Corpuscular Volume 86, Mean Corpuscular Hemoglobin 29.1, Mean Corpuscular Hemoglobin Concent 33.7, Red Cell Distribution Width 16.3H, Platelet Count 184, Mean Platelet Volume 6.8, Neutrophils (%) (Auto) , Lymphocytes (%) (Auto) , Monocytes (%) (Auto) , Eosinophils (%) (Auto) , Basophils (%) (Auto) , Neutrophils % (Manual) [Pending], Lymphocytes % (Manual) [Pending], Platelet Estimate [Pending], Platelet Morphology [Pending], Sodium Level 142, Potassium Level 5.0, Chloride Level 110H, Carbon Dioxide Level 23, Anion Gap 9, Blood Urea Nitrogen 65H, Creatinine 2.8H, Estimat Glomerular Filtration Rate 26.9, Glucose Level 166H, Calcium Level 8.7, Phosphorus Level 4.0, Magnesium Level 1.9, Total Bilirubin 0.2, Aspartate Amino Transf (AST/SGOT) 15, Alanine Aminotransferase (ALT/SGPT) 12, Alkaline Phosphatase 46, Total Protein 6.5, Albumin 2.1L, Globulin 4.4, Albumin/Globulin Ratio 0.5L Current Medications Medications (Trade) Dose Ordered Sig/Lewis Route PRN Reason Start Time Stop Time Status Last Admin Dose Admin Acetaminophen (Tylenol) 650 mg Q4H PRN ORAL pain 1-3 04/11/20 18:00 05/11/20 17:59 04/12/20 18:10 Acetaminophen/ Hydrocodone Bitart ([place] 5/325) 1 tab Q6H PRN ORAL pain 4-10 04/12/20 15:30 04/19/20 15:29 04/13/20 08:11 Azithromycin 500 mg/Dextrose 275 ml @ 275 mls/hr Q24H IV 04/12/20 09:00 04/17/20 08:59 04/13/20 08:12 Dexamethasone Sodium Phosphate (Decadron 10mg/ ml Inj) 6 mg DAILY IV 04/13/20 09:00 04/22/20 09:01 04/13/20 08:10 Dextrose (Dextrose 50%) 25 ml Q30M PRN IV Hypoglycemia 04/11/20 18:00 07/10/20 17:59 Dextrose (Dextrose 50%) 50 ml Q30M PRN IV Hypoglycemia 04/11/20 18:00 07/10/20 17:59 Docusate Sodium (Colace) 100 mg EVERY 12 HOURS ORAL 04/11/20 21:00 05/11/20 20:59 04/13/20 08:13 Famotidine (Pepcid) 40 mg DAILY ORAL 04/12/20 09:00 07/11/20 08:59 04/13/20 08:07 Heparin Sodium (Porcine) (Heparin 5000 units/ml) 5,000 units EVERY 12 HOURS SUBQ 04/11/20 18:07 05/26/20 18:06 04/13/20 08:13 Linezolid (Zyvox) 600 mg EVERY 12 HOURS ORAL 04/12/20 21:00 04/17/20 20:59 04/13/20 08:07 Piperacillin Sod/ Tazobactam Sod 3.375 gm/Dextrose 100 ml @ 25 mls/hr EVERY 12 HOURS IVPB 04/12/20 21:00 04/17/20 20:59 04/13/20 08:11 Sodium Chloride 1,000 ml @ 50 mls/hr Q20H IV 04/11/20 19:00 05/11/20 18:59 04/12/20 17:30 Assessment/Plan Assessment/Plan 1. COVID-19 pneumonia. - Continue Decadron. - Consider remdesivir (defer to ID). - cont broad-spectrum Abx 2. Renal failure. - Renal US: Negative for hydronephrosis - per renal 3. History of COPD. 4. Severe chronic leg/bag pain - On norco 5. UTI; on abx per ID Continue home medications. Seen by ID and Nephrology. DVT prophylaxis. Miguel Duarte Apr 13, 2020 10:48 Derrek Nava MD Apr 13, 2020 11:09
[2020-04-13] MEDS: HYDROcodone/Acetamin 10/325 tab ORAL PRN (20:56)
[2020-04-14] VITALS: BP 172/62
[2020-04-14] MEDS: HYDROcodone/Acetamin 10/325 tab ORAL PRN ×2 (01:07→09:26)
[2020-04-14 04:00] VITALS: BP 190/85
[2020-04-14 07:06] LABS: HEMOGLOBIN 13.3 G/DL (14.2-18.0); MEAN CORPUSCULAR VOLUME 89 FL (80-99); PLATELET COUNT 212 K/UL (150-450); RED BLOOD COUNT 4.52 M/UL (4.70-6.10); RED CELL DISTRIBUTION WIDTH 14.9 % (11.6-14.8); WHITE BLOOD COUNT 5.1 K/UL (4.8-10.8)
[2020-04-14 07:15] LABS: CREATININE 2.5 MG/DL (0.55-1.30); PHOSPHORUS 3.9 MG/DL (2.5-4.9); POTASSIUM 5.3 MMOL/L (3.5-5.1)
[2020-04-14 08:00] VITALS: BP 154/65
--- NOTE | 2020-04-14 08:47 | Consultation ---
History of Present Illness General Date patient seen: Apr 14, 2020 Chief Complaint: Reason for Consultation: Present Illness Allergies: Uncoded Allergies: VITAMIN B (Allergy, Unknown, 04/11/20) Medication History Scheduled Albuterol Sulfate* (Proair Hfa*), 2 PUFFS INH Q6H, (Reported) Amlodipine Besylate* (Amlodipine Besylate*), 2.5 MG ORAL DAILY, (Reported) Aspirin* (Aspirin*), 325 MG ORAL DAILY, (Reported) Atorvastatin Calcium* (Atorvastatin Calcium*), 40 MG ORAL BEDTIME, (Reported) Escitalopram Oxalate* (Lexapro*), 5 MG ORAL DAILY, (Reported) Gabapentin* (Gabapentin*), 300 MG ORAL QHS, (Reported) Insulin Glargine (Lantus), 0 SUBQ BEDTIME, (Reported) Metoprolol Succinate* (Metoprolol Succinate*), 50 MG ORAL DAILY, (Reported) Quetiapine Fumarate* (Quetiapine Fumarate*), 50 MG ORAL DAILY, (Reported) Tamsulosin HCl (Flomax), 0.4 MG ORAL DAILY, (Reported) Teriparatide Acetate (Forteo), 20 MCG SUBQ DAILY, (Reported) Miscellaneous Medications Fluticasone/Umeclidin/Vilanter (Trelegy Ellipta 200-62.5-25), 1 EACH IH, (Reported) Patient History Healthcare decision maker Resuscitation status Advanced Directive on File Physical Exam Last 24 Hour Vital Signs Date Time Temp Pulse Resp B/P (MAP) Pulse Ox O2 Delivery O2 Flow Rate FiO2 04/14/20 04:00 98.1 48 22 190/85 (120) 99 04/14/20 04:00 60 04/14/20 00:00 55 04/14/20 00:00 97.3 49 22 172/62 (98) 99 04/13/20 21:00 Nasal Cannula 4.0 Nasal Cannula 4.0 04/13/20 20:00 97.2 70 22 145/89 (107) 99 04/13/20 20:00 62 04/13/20 16:00 98.2 85 20 158/92 (114) 98 04/13/20 16:00 69 04/13/20 12:00 84 04/13/20 12:00 96.6 71 20 129/87 (101) 96 04/13/20 09:00 Nasal Cannula 4.0 Nasal Cannula 4.0 Intake and Output 04/13/20 04/14/20 19:00 07:00 Intake Total 550 ml 620 ml Balance 550 ml 620 ml Intake Oral 500 ml 120 ml IV Total 50 ml 500 ml # Voids 2 3 # Bowel Movements 3 3 Laboratory Tests Test 04/14/20 05:44 White Blood Count 5.1 K/UL (4.8-10.8) Red Blood Count 4.52 M/UL (4.70-6.10) L Hemoglobin 13.3 G/DL (14.2-18.0) L Hematocrit 40.0 % (42.0-52.0) L Mean Corpuscular Volume 89 FL (80-99) Mean Corpuscular Hemoglobin 29.4 PG (27.0-31.0) Mean Corpuscular Hemoglobin Concent 33.2 G/DL (32.0-36.0) Red Cell Distribution Width 14.9 % (11.6-14.8) H Platelet Count 212 K/UL (150-450) Mean Platelet Volume 6.8 FL (6.5-10.1) Neutrophils (%) (Auto) % (45.0-75.0) Lymphocytes (%) (Auto) % (20.0-45.0) Monocytes (%) (Auto) % (1.0-10.0) Eosinophils (%) (Auto) % (0.0-3.0) Basophils (%) (Auto) % (0.0-2.0) Neutrophils % (Manual) Pending Lymphocytes % (Manual) Pending Platelet Estimate Pending Platelet Morphology Pending Sodium Level 143 MMOL/L (136-145) Potassium Level 5.3 MMOL/L (3.5-5.1) H Chloride Level 109 MMOL/L (98-107) H Carbon Dioxide Level 28 MMOL/L (21-32) Anion Gap 7 mmol/L (5-15) Blood Urea Nitrogen 58 mg/dL (7-18) H Creatinine 2.5 MG/DL (0.55-1.30) H Estimat Glomerular Filtration Rate 30.7 mL/min (>60) Glucose Level 91 MG/DL (74-106) Calcium Level 9.0 MG/DL (8.5-10.1) Phosphorus Level 3.9 MG/DL (2.5-4.9) Magnesium Level 1.9 MG/DL (1.8-2.4) Height (Feet): 6 Height (Inches): 1.00 Weight (Pounds): 132 Medications Current Medications Medications (Trade) Dose Ordered Sig/Lewis Route PRN Reason Start Time Stop Time Status Last Admin Dose Admin Acetaminophen (Tylenol) 650 mg Q4H PRN ORAL pain 1-3 04/11/20 18:00 05/11/20 17:59 04/12/20 18:10 Acetaminophen/ Hydrocodone Bitart ([place] 10/325) 1 tab Q4H PRN ORAL pain 4-10 04/13/20 12:15 04/20/20 12:14 04/14/20 01:07 Azithromycin 500 mg/Dextrose 275 ml @ 275 mls/hr Q24H IV 04/12/20 09:00 04/17/20 08:59 04/13/20 08:12 Dexamethasone Sodium Phosphate (Decadron 10mg/ ml Inj) 6 mg DAILY IV 04/13/20 09:00 04/22/20 09:01 04/13/20 08:10 Dextrose (Dextrose 50%) 25 ml Q30M PRN IV Hypoglycemia 04/11/20 18:00 07/10/20 17:59 Dextrose (Dextrose 50%) 50 ml Q30M PRN IV Hypoglycemia 04/11/20 18:00 07/10/20 17:59 Docusate Sodium (Colace) 100 mg EVERY 12 HOURS ORAL 04/11/20 21:00 05/11/20 20:59 04/13/20 08:13 Famotidine (Pepcid) 40 mg DAILY ORAL 04/12/20 09:00 07/11/20 08:59 04/13/20 08:07 Heparin Sodium (Porcine) (Heparin 5000 units/ml) 5,000 units EVERY 12 HOURS SUBQ 04/11/20 18:07 05/26/20 18:06 04/13/20 20:25 Linezolid (Zyvox) 600 mg EVERY 12 HOURS ORAL 04/12/20 21:00 04/17/20 20:59 04/13/20 20:25 Piperacillin Sod/ Tazobactam Sod 3.375 gm/Dextrose 100 ml @ 25 mls/hr EVERY 12 HOURS IVPB 12/2/20 21:00 04/17/20 20:59 04/13/20 20:26 Sodium Chloride 1,000 ml @ 50 mls/hr Q20H IV 04/11/20 19:00 05/11/20 18:59 04/13/20 14:15 Assessment/Plan Assessment/Plan: (1) Lumbar DDD (2) Lumbar Spondylosis (3) Lumbar Radiculopathy (4) Covid 19+ seen dictated Nicholas Escobedo Apr 14, 2020 08:47
--- NOTE | 2020-04-14 08:55 | Nephrology Progress Note ---
Assessment/Plan Plan #DEYSI on CKD- improving #COVID pneumonia #hypoxemic resp failure #leukocytosis #HTN- accelerated - check renal US-> no hydro, medical renal disease - kayexalate for hyperK today - add amlodipine 10mg daily - 1/2NS at 50 cc/hr - continue antibiotics - zosyn and linezolid - monitor BMP, mag and phos - strict I&Os - avoid nephrotoxins - monitor weights Time spent 65 min Subjective ROS Limited/Unobtainable: No Subjective Cr downtrending breathing stable K 5.3 BP elevated renal US: Impression: Negative for hydronephrosis Echogenic kidneys bilaterally, associated with medical renal disease Incidental finding bilateral renal cysts. Objective Objective Last 24 Hour Vital Signs Date Time Temp Pulse Resp B/P (MAP) Pulse Ox O2 Delivery O2 Flow Rate FiO2 04/14/20 04:00 98.1 48 22 190/85 (120) 99 04/14/20 04:00 60 04/14/20 00:00 55 04/14/20 00:00 97.3 49 22 172/62 (98) 99 04/13/20 21:00 Nasal Cannula 4.0 Nasal Cannula 4.0 04/13/20 20:00 97.2 70 22 145/89 (107) 99 04/13/20 20:00 62 04/13/20 16:00 98.2 85 20 158/92 (114) 98 04/13/20 16:00 69 04/13/20 12:00 84 04/13/20 12:00 96.6 71 20 129/87 (101) 96 04/13/20 09:00 Nasal Cannula 4.0 Nasal Cannula 4.0 Intake and Output 04/13/20 04/14/20 19:00 07:00 Intake Total 550 ml 620 ml Balance 550 ml 620 ml Intake Oral 500 ml 120 ml IV Total 50 ml 500 ml # Voids 2 3 # Bowel Movements 3 3 Laboratory Tests 04/14/20 05:44: White Blood Count 5.1, Red Blood Count 4.52L, Hemoglobin 13.3L, Hematocrit 40.0L , Mean Corpuscular Volume 89, Mean Corpuscular Hemoglobin 29.4, Mean Corpuscular Hemoglobin Concent 33.2, Red Cell Distribution Width 14.9H, Platelet Count 212, Mean Platelet Volume 6.8, Neutrophils (%) (Auto) , Lymphocytes (%) (Auto) , Monocytes (%) (Auto) , Eosinophils (%) (Auto) , Basophils (%) (Auto) , Neutrophils % (Manual) [Pending], Lymphocytes % (Manual) [Pending], Platelet Estimate [Pending], Platelet Morphology [Pending], Sodium Level 143, Potassium Level 5.3H, Chloride Level 109H, Carbon Dioxide Level 28, Anion Gap 7, Blood Urea Nitrogen 58H, Creatinine 2.5H, Estimat Glomerular Filtration Rate 30.7, Glucose Level 91, Calcium Level 9.0, Phosphorus Level 3.9, Magnesium Level 1.9 Height (Feet): 6 Height (Inches): 1.00 Weight (Pounds): 132 Rocco Messina M.D. Apr 14, 2020 08:55
[2020-04-14] MEDS: Docusate 100mg cap ORAL SCH ×2 (09:00→20:50)
[2020-04-14] MEDS: dexAMETHasone 10mg/ml Inj IV SCH (09:27)
[2020-04-14] MEDS: Heparin 5000 units/ml inj SUBQ SCH ×2 (09:28→20:51)
[2020-04-14] MEDS: Azithromycin 500 MG in D5W 275 ML IV SCH (09:29)
[2020-04-14] MEDS ORDERED: Sodium Polystyrene Sulfonate 15gm Powder ORAL ONE (09:30)
--- NOTE | 2020-04-14 10:29 | Consultation ---
History of Present Illness General Chief Complaint: SOB Referring physician: Derrek Nava Reason for Consultation: Hypertension, tachy/yannick Present Illness HPI 74 yo M with PMHx CAD s/p PCI and stent placement, COPD with oxygen dependence at home, HTN, HPLD, DMII, CKD, and depression is admitted through the ER with SOB after being seen 04/09 at [facility] and treated for COVID-19 viral PNA. EKG at time of admission to [place] Apr 11 shows sinus tachycardia with PVCs and RBBB, since that time pt has been bradycardic and hypertensive, we are asked to see the patient for further evaluation and management of multiple cardiac issues. Allergies: Uncoded Allergies: VITAMIN B (Allergy, Unknown, 04/11/20) Medication History Scheduled Albuterol Sulfate* (Proair Hfa*), 2 PUFFS INH Q6H, (Reported) Amlodipine Besylate* (Amlodipine Besylate*), 2.5 MG ORAL DAILY, (Reported) Aspirin* (Aspirin*), 325 MG ORAL DAILY, (Reported) Atorvastatin Calcium* (Atorvastatin Calcium*), 40 MG ORAL BEDTIME, (Reported) Escitalopram Oxalate* (Lexapro*), 5 MG ORAL DAILY, (Reported) Gabapentin* (Gabapentin*), 300 MG ORAL QHS, (Reported) Insulin Glargine (Lantus), 0 SUBQ BEDTIME, (Reported) Metoprolol Succinate* (Metoprolol Succinate*), 50 MG ORAL DAILY, (Reported) Quetiapine Fumarate* (Quetiapine Fumarate*), 50 MG ORAL DAILY, (Reported) Tamsulosin HCl (Flomax), 0.4 MG ORAL DAILY, (Reported) Teriparatide Acetate (Forteo), 20 MCG SUBQ DAILY, (Reported) Miscellaneous Medications Fluticasone/Umeclidin/Vilanter (Trelegy Ellipta 200-62.5-25), 1 EACH IH, (Reported) Patient History Healthcare decision maker Resuscitation status Advanced Directive on File Review of Systems All Other Systems: negative except mentioned in HPI Physical Exam Last 24 Hour Vital Signs Date Time Temp Pulse Resp B/P (MAP) Pulse Ox O2 Delivery O2 Flow Rate FiO2 04/14/20 09:25 73 154/65 04/14/20 04:00 98.1 48 22 190/85 (120) 99 04/14/20 04:00 60 04/14/20 00:00 55 04/14/20 00:00 97.3 49 22 172/62 (98) 99 04/13/20 21:00 Nasal Cannula 4.0 Nasal Cannula 4.0 04/13/20 20:00 97.2 70 22 145/89 (107) 99 04/13/20 20:00 62 04/13/20 16:00 98.2 85 20 158/92 (114) 98 04/13/20 16:00 69 04/13/20 12:00 84 04/13/20 12:00 96.6 71 20 129/87 (101) 96 Intake and Output 04/13/20 04/14/20 19:00 07:00 Intake Total 550 ml 620 ml Balance 550 ml 620 ml Intake Oral 500 ml 120 ml IV Total 50 ml 500 ml # Voids 2 3 # Bowel Movements 3 3 Laboratory Tests Test 04/14/20 05:44 White Blood Count 5.1 K/UL (4.8-10.8) Red Blood Count 4.52 M/UL (4.70-6.10) L Hemoglobin 13.3 G/DL (14.2-18.0) L Hematocrit 40.0 % (42.0-52.0) L Mean Corpuscular Volume 89 FL (80-99) Mean Corpuscular Hemoglobin 29.4 PG (27.0-31.0) Mean Corpuscular Hemoglobin Concent 33.2 G/DL (32.0-36.0) Red Cell Distribution Width 14.9 % (11.6-14.8) H Platelet Count 212 K/UL (150-450) Mean Platelet Volume 6.8 FL (6.5-10.1) Neutrophils (%) (Auto) % (45.0-75.0) Lymphocytes (%) (Auto) % (20.0-45.0) Monocytes (%) (Auto) % (1.0-10.0) Eosinophils (%) (Auto) % (0.0-3.0) Basophils (%) (Auto) % (0.0-2.0) Neutrophils % (Manual) Pending Lymphocytes % (Manual) Pending Platelet Estimate Pending Platelet Morphology Pending Sodium Level 143 MMOL/L (136-145) Potassium Level 5.3 MMOL/L (3.5-5.1) H Chloride Level 109 MMOL/L (98-107) H Carbon Dioxide Level 28 MMOL/L (21-32) Anion Gap 7 mmol/L (5-15) Blood Urea Nitrogen 58 mg/dL (7-18) H Creatinine 2.5 MG/DL (0.55-1.30) H Estimat Glomerular Filtration Rate 30.7 mL/min (>60) Glucose Level 91 MG/DL (74-106) Calcium Level 9.0 MG/DL (8.5-10.1) Phosphorus Level 3.9 MG/DL (2.5-4.9) Magnesium Level 1.9 MG/DL (1.8-2.4) Height (Feet): 6 Height (Inches): 1.00 Weight (Pounds): 132 Medications Current Medications Medications (Trade) Dose Ordered Sig/Lewis Route PRN Reason Start Time Stop Time Status Last Admin Dose Admin Acetaminophen (Tylenol) 650 mg Q4H PRN ORAL pain 1-3 04/11/20 18:00 05/11/20 17:59 04/12/20 18:10 Acetaminophen/ Hydrocodone Bitart ([place] 10/325) 1 tab BID PRN ORAL pain 4-10 04/14/20 09:00 04/21/20 08:59 04/14/20 09:26 Amlodipine Besylate (Norvasc) 10 mg DAILY ORAL 04/14/20 09:30 05/14/20 09:29 04/14/20 09:25 Azithromycin 500 mg/Dextrose 275 ml @ 275 mls/hr Q24H IV 04/12/20 09:00 04/17/20 08:59 04/14/20 09:29 Dexamethasone Sodium Phosphate (Decadron 10mg/ ml Inj) 6 mg DAILY IV 04/13/20 09:00 04/22/20 09:01 04/14/20 09:27 Dextrose (Dextrose 50%) 25 ml Q30M PRN IV Hypoglycemia 04/11/20 18:00 07/10/20 17:59 Dextrose (Dextrose 50%) 50 ml Q30M PRN IV Hypoglycemia 04/11/20 18:00 07/10/20 17:59 Docusate Sodium (Colace) 100 mg EVERY 12 HOURS ORAL 04/11/20 21:00 05/11/20 20:59 04/13/20 08:13 Famotidine (Pepcid) 40 mg DAILY ORAL 04/12/20 09:00 07/11/20 08:59 04/14/20 09:24 Heparin Sodium (Porcine) (Heparin 5000 units/ml) 5,000 units EVERY 12 HOURS SUBQ 04/11/20 18:07 05/26/20 18:06 04/14/20 09:28 Hydralazine HCl (Apresoline) 10 mg EVERY 6 HOURS PRN IV For High Blood Pressure 04/14/20 09:00 07/13/20 08:59 Hydralazine HCl (Apresoline) 25 mg Q6HR ORAL 04/14/20 12:00 07/13/20 11:59 UNV Linezolid (Zyvox) 600 mg EVERY 12 HOURS ORAL 04/12/20 21:00 04/17/20 20:59 04/14/20 09:25 Piperacillin Sod/ Tazobactam Sod 3.375 gm/Dextrose 100 ml @ 25 mls/hr EVERY 12 HOURS IVPB 04/12/20 21:00 04/17/20 20:59 04/14/20 09:28 Sodium Chloride 1,000 ml @ 50 mls/hr Q20H IV 04/11/20 19:00 05/11/20 18:59 04/13/20 14:15 Assessment/Plan Status: stable Assessment/Plan: 1. COVID-19 viral PNA pt in isolation, on decadron and remdesivir per ID 2. HTN 3. CAD s/p PCI and stent 3. DEYSI on CKD 3. COPD 4. DMII - insulin dependent 5. UTI; on abx per ID 6. Hyperkalemia Increase hydralazine to 50mg bid, one dose Lasix IV 20mg. Echo pending. Sandra Monique PA-C Apr 14, 2020 10:29
--- NOTE | 2020-04-14 10:56 | Pulmonology Progress Note ---
Subjective ROS Limited/Unobtainable: No Interval Events: leg/back pain tolerable now Constitutional: Reports: no symptoms HEENT: Repors: no symptoms Respiratory: Reports: no symptoms Cardiovascular: Reports: no symptoms Gastrointestinal/Abdominal: Reports: no symptoms Genitourinary: Reports: no symptoms Allergies: Uncoded Allergies: VITAMIN B (Allergy, Unknown, 04/11/20) Subjective pt reports severe chronic leg/back pain despite am dose of Cardale; pain scale 7/10 Objective Last 24 Hour Vital Signs Date Time Temp Pulse Resp B/P (MAP) Pulse Ox O2 Delivery O2 Flow Rate FiO2 04/14/20 09:25 73 154/65 04/14/20 04:00 98.1 48 22 190/85 (120) 99 04/14/20 04:00 60 04/14/20 00:00 55 04/14/20 00:00 97.3 49 22 172/62 (98) 99 04/13/20 21:00 Nasal Cannula 4.0 Nasal Cannula 4.0 04/13/20 20:00 97.2 70 22 145/89 (107) 99 04/13/20 20:00 62 04/13/20 16:00 98.2 85 20 158/92 (114) 98 04/13/20 16:00 69 04/13/20 12:00 84 04/13/20 12:00 96.6 71 20 129/87 (101) 96 Intake and Output 04/13/20 04/14/20 19:00 07:00 Intake Total 550 ml 620 ml Balance 550 ml 620 ml Intake Oral 500 ml 120 ml IV Total 50 ml 500 ml # Voids 2 3 # Bowel Movements 3 3 Objective pt laying in bed; SBP as high as 190, with bradycardia; Cardiology consulted General Appearance: no acute distress HEENT: normocephalic, mucous membranes moist Respiratory: chest wall non-tender, lungs clear Cardiovascular: normal peripheral pulses Abdomen: normal bowel sounds, soft, non tender Extremities: no cyanosis, no edema Microbiology Date/Time Source Procedure Growth Status 04/12/20 14:30 Urine,Clean Catch Urine Culture - Final Escherichia Coli - Esbl Complete 04/11/20 15:10 Urine,Clean Catch Urine Culture - Final Escherichia Coli - Esbl Complete 04/11/20 12:05 Blood Blood Culture - Preliminary NO GROWTH AFTER 48 HOURS Resulted 04/11/20 12:05 Blood Blood Culture - Preliminary NO GROWTH AFTER 48 HOURS Resulted Laboratory Tests 04/14/20 05:44: White Blood Count 5.1, Red Blood Count 4.52L, Hemoglobin 13.3L, Hematocrit 40.0L , Mean Corpuscular Volume 89, Mean Corpuscular Hemoglobin 29.4, Mean Corpuscular Hemoglobin Concent 33.2, Red Cell Distribution Width 14.9H, Platelet Count 212, Mean Platelet Volume 6.8, Neutrophils (%) (Auto) , Lymphocytes (%) (Auto) , Mo nocytes (%) (Auto) , Eosinophils (%) (Auto) , Basophils (%) (Auto) , Differential Total Cells Counted 100, Neutrophils % (Manual) 85H, Lymphocytes % (Manual) 10L, Monocytes % (Manual) 5, Eosinophils % (Manual) 0, Basophils % (Manual) 0, Band Neutrophils 0, Platelet Estimate Adequate, Platelet Morphology Normal, Red Blood Cell Morphology Normal, Sodium Level 143, Potassium Level 5.3H , Chloride Level 109H, Carbon Dioxide Level 28, Anion Gap 7, Blood Urea Nitrogen 58H, Creatinine 2.5H, Estimat Glomerular Filtration Rate 30.7, Glucose Level 91, Calcium Level 9.0, Phosphorus Level 3.9, Magnesium Level 1.9 Current Medications Medications (Trade) Dose Ordered Sig/Lewis Route PRN Reason Start Time Stop Time Status Last Admin Dose Admin Acetaminophen (Tylenol) 650 mg Q4H PRN ORAL pain 1-3 04/11/20 18:00 05/11/20 17:59 04/12/20 18:10 Acetaminophen/ Hydrocodone Bitart ([place] 10/325) 1 tab BID PRN ORAL pain 4-10 04/14/20 09:00 04/21/20 08:59 04/14/20 09:26 Amlodipine Besylate (Norvasc) 10 mg DAILY ORAL 04/14/20 09:30 05/14/20 09:29 04/14/20 09:25 Aspirin (Ecotrin) 81 mg DAILY ORAL 04/15/20 09:00 05/30/20 08:59 UNV Azithromycin 500 mg/Dextrose 275 ml @ 275 mls/hr Q24H IV 04/12/20 09:00 04/17/20 08:59 04/14/20 09:29 Dexamethasone Sodium Phosphate (Decadron 10mg/ ml Inj) 6 mg DAILY IV 04/13/20 09:00 12/12/20 09:01 04/14/20 09:27 Dextrose (Dextrose 50%) 25 ml Q30M PRN IV Hypoglycemia 04/11/20 18:00 07/10/20 17:59 Dextrose (Dextrose 50%) 50 ml Q30M PRN IV Hypoglycemia 04/11/20 18:00 07/10/20 17:59 Docusate Sodium (Colace) 100 mg EVERY 12 HOURS ORAL 04/11/20 21:00 05/11/20 20:59 04/13/20 08:13 Famotidine (Pepcid) 40 mg DAILY ORAL 04/12/20 09:00 07/11/20 08:59 04/14/20 09:24 Furosemide (Lasix) 20 mg ONCE ONCE IV 04/14/20 10:45 04/14/20 10:46 UNV Heparin Sodium (Porcine) (Heparin 5000 units/ml) 5,000 units EVERY 12 HOURS SUBQ 04/11/20 18:07 05/26/20 18:06 04/14/20 09:28 Hydralazine HCl (Apresoline) 10 mg EVERY 6 HOURS PRN IV For High Blood Pressure 04/14/20 09:00 07/13/20 08:59 Hydralazine HCl (Apresoline) 50 mg EVERY 8 HOURS ORAL 04/14/20 10:45 07/13/20 11:59 UNV Linezolid (Zyvox) 600 mg EVERY 12 HOURS ORAL 04/12/20 21:00 04/17/20 20:59 04/14/20 09:25 Piperacillin Sod/ Tazobactam Sod 3.375 gm/Dextrose 100 ml @ 25 mls/hr EVERY 12 HOURS IVPB 04/12/20 21:00 04/17/20 20:59 04/14/20 09:28 Sodium Chloride 1,000 ml @ 50 mls/hr Q20H IV 04/11/20 19:00 05/11/20 18:59 04/13/20 14:15 Assessment/Plan Assessment/Plan 1. COVID-19 pneumonia. - Continue Decadron. - Consider remdesivir (defer to ID). - cont broad-spectrum Abx 2. Renal failure. - Renal US Negative for hydronephrosis - 04/14/2020 BUN and Cr improved - per renal 3. History of COPD. - Saturating 99% on 4 lpm NC 4. Severe chronic leg/bag pain - per pain management - Currently on 10 mg Cardale BID prn pain 5. DVT prophylaxis - On Lovenox 6. Hyperkalemia - K 5.3 - Kayexalate added - Lasix added 7. HTN - On Amlodipine - Hydralazine added - 2D echo pending, per cardio continue home medications. The care of this patient was discussed with my supervising physician Seen and examined by Dr. Nava as well Time spent for this case was approximately 31 minutes Miguel Duarte Apr 14, 2020 10:56
[2020-04-14 12:00] VITALS: BP 151/97
[2020-04-14] MEDS ORDERED: HydrALAZINE 25mg tab ORAL SCH (12:00)
[2020-04-14] MEDS: HydrALAZINE 25mg tab ORAL SCH ×3 (12:41→23:04)
--- NOTE | 2020-04-14 13:05 | Cardiology Report ---
APPROVED REPORT EKG Measurement Heart [id number] <Conclusion> Sinus tachycardia with frequent premature ventricular complexes Biatrial enlargement Left axis deviation Pulmonary disease pattern Incomplete right bundle branch block Inferior infarct, age undetermined Abnormal ECG
--- NOTE | 2020-04-14 13:53 | Diagnostic Imaging Report ---
Indication: Shortness of breath Technique: One view of the chest Comparison: 04/11/2020 Findings: Interim development of small focal patchy opacity at the left mid and lower lung. There is some scarring or atelectasis in the left mid and upper lung. Infiltrate in the right upper lobe, hyperinflation of the right lower lobe is again demonstrated. Left sided pleural thickening versus fluid is unchanged. Impression: New small left mid to lower lung patchy opacity, possibly a small focus of consolidation. Otherwise stable findings as described
--- NOTE | 2020-04-14 15:16 | Consultation ---
DATE OF CONSULTATION: 04/14/2020 PAIN MANAGEMENT CONSULTATION CONSULTING PHYSICIAN: Andrew Mendez MD. REFERRING PHYSICIAN: Derrek Nava MD. PHYSICIAN MEDICAL IMAGING TECHNICIAN: CAMRON Hernandez. CHIEF COMPLAINT: Back pain. HISTORY OF PRESENT ILLNESS: This is a 74-year-old male, who is being seen on the telemetry floor of [facility] for initial pain management consultation. The patient was admitted under care of Dr. Nava, transferred from [facility] to [facility] then was transferred to [facility], found to be tachycardic and hypoxic, COVID-19 positive as well as a history of COPD. At this time, the patient complains of chronic lower back pain with radiation to his lower extremities, rating it 8/10 and it is worst. Describes the pain as a shooting pain, worse with movement and is reduced with medication. He is on [place] 10/325 mg one tablet every four hours as needed for severe pain, which he has used two doses of in the last 24 hours. Reports that the pain is controlled with this medication, and we were consulted so the patient would have adequate pain control while here in the hospital. I discussed with the patient about opioid usage and he seems to understand. PAST MEDICAL HISTORY: COPD and pneumonia. SOCIAL HISTORY: Reports a history of smoking tobacco. ALLERGIES: Vitamin D. MEDICATIONS: [place], azithromycin, Rocephin, Flagyl, docusate, heparin, dexamethasone, Tylenol, Xopenex, and albuterol here in the hospital. REVIEW OF SYSTEMS: Denies rash, fever, chills, sweating, dizziness, drowsiness, blurred vision, sore throat, change in his weight. No nausea, vomiting, diarrhea, or blood in the stool or urine. No dysuria. PHYSICAL EXAMINATION: GENERAL: Alert, awake, and oriented. VITAL SIGNS: Blood pressure 109/85, heart rate 48, oxygen saturation 99%, respiratory rate 22, temperature 98.1 degrees Fahrenheit. HEENT: PERRLA. NECK: Range of motion is decreased due to the patient's condition. LUNGS: Decreased breath sounds bilaterally. HEART: S1 and S2, regular. ABDOMEN: Soft and nontender. BACK: Range of motion is decreased in flexion and extension. EXTREMITIES: Upper and lower extremity range of motion is decreased due to the patient's condition. No cyanosis. No clubbing. Sensory is reduced. Reflexes are not obtainable. No adenopathy. ASSESSMENT AND PLAN: This is a 74-year-old male with lumbar degenerative disease, lumbar spondylosis, lumbar radiculopathy, COVID-19 positive. The patient will be continued on [place] reduced to twice a day as needed for severe pain. Parameters will be set to hold opiates for oversedation or lethargy or systolic blood pressure below 90 or diastolic blood pressure below 60, respiratory rate 12, oxygen saturation below 94%, or heart rate below 69. The patient was discussed with Dr. Mendez and Dr. Mendez concurred. We will follow up with the patient. Thank you very much for the courtesy of this consultation. Andrew Mendez M.D. CAMRON Hernandez DR: ANISHA JOB#: [id number] CC:
[2020-04-14 16:00] VITALS: BP 130/78
--- NOTE | 2020-04-14 18:35 | Infectious Diseases Prog Note ---
Assessment/Plan Assessment/Plan ASSESSMENT AND PLAN: 1. esbl e.coli uti, covid-19 infection, pneumonia, sepsis, fevers, leukocytosis - meropenem - day # 3 abx - dexamethasone - day # 3 - monitor clinically, hypoxia, labs and chest x-ray 2. Renal failure. 3. COVID-19 infection history. 4. The patient is anemic. 5. No history of diabetes and hypertension. 6. Renal failure. Treatment per Renal and Medicine. 7. Allergy to vitamin D. 8. Social history is negative. 9. Family history is noncontributory. 10. MAR is noted. 11. Case was discussed with RN. 12. COVID isolation. 13. Case was discussed with Dr. Nava. Subjective Constitutional: Reports: fatigue; Denies: fever HEENT: Denies: congestion Respiratory: Denies: shortness of breath Cardiovascular: Denies: chest pain Gastrointestinal/Abdominal: Denies: nausea, vomiting, diarrhea Genitourinary: Reports: other - no contreras Neurologic: Denies: headache Psychiatric: Denies: depression Skin: Denies: rash Hematologic: Denies: bleeding Musculoskeletal: Denies: pain Allergies: Uncoded Allergies: VITAMIN B (Allergy, Unknown, 04/11/20) Objective Last 24 Hour Vital Signs Date Time Temp Pulse Resp B/P (MAP) Pulse Ox O2 Delivery O2 Flow Rate FiO2 04/14/20 14:24 151/97 04/14/20 12:41 151/97 04/14/20 12:00 98.1 85 21 151/97 (115) 95 04/14/20 12:00 61 04/14/20 09:25 73 154/65 04/14/20 09:00 Nasal Cannula 4.0 Nasal Cannula 4.0 04/14/20 08:00 98.3 73 22 154/65 (94) 95 04/14/20 08:00 58 04/14/20 04:00 98.1 48 22 190/85 (120) 99 04/14/20 04:00 60 04/14/20 00:00 55 04/14/20 00:00 97.3 49 22 172/62 (98) 99 04/13/20 21:00 Nasal Cannula 4.0 Nasal Cannula 4.0 04/13/20 20:00 97.2 70 22 145/89 (107) 99 04/13/20 20:00 62 Height (Feet): 6 Height (Inches): 1.00 Weight (Pounds): 132 General Appearance: no acute distress HEENT: normocephalic, atraumatic, anicteric, mucous membranes moist Respiratory/Chest: crackles/rales, rhonchi - bilaterally Cardiovascular: normal rate, regular rhythm, no gallop/murmur, no JVD Abdomen: normal bowel sounds, soft, non tender, no organomegaly, non distended Genitourinary: other - no contreras Extremities: no cyanosis Skin: no rash 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 There is some scarring or atelectasis in the left mid and upper lung. Infiltrate in the right upper lobe, hyperinflation of the right lower lobe is again demonstrated. Left sided pleural thickening versus fluid is unchanged. Impression: New small left mid to lower lung patchy opacity, possibly a small focus of consolidation. Otherwise stable findings as described Microbiology Date/Time Source Procedure Growth Status 04/12/20 14:30 Urine,Clean Catch Urine Culture - Final Escherichia Coli - Esbl Complete 04/11/20 12:05 Blood Blood Culture - Preliminary NO GROWTH AFTER 48 HOURS Resulted Microbiology Date/Time Source Procedure Growth Status 04/12/20 14:30 Urine,Clean Catch Urine Culture - Final Escherichia Coli - Esbl Complete Laboratory Tests Test 04/14/20 05:44 White Blood Count 5.1 K/UL (4.8-10.8) Red Blood Count 4.52 M/UL (4.70-6.10) L Hemoglobin 13.3 G/DL (14.2-18.0) L Hematocrit 40.0 % (42.0-52.0) L Mean Corpuscular Volume 89 FL (80-99) Mean Corpuscular Hemoglobin 29.4 PG (27.0-31.0) Mean Corpuscular Hemoglobin Concent 33.2 G/DL (32.0-36.0) Red Cell Distribution Width 14.9 % (11.6-14.8) H Platelet Count 212 K/UL (150-450) Mean Platelet Volume 6.8 FL (6.5-10.1) Neutrophils (%) (Auto) % (45.0-75.0) Lymphocytes (%) (Auto) % (20.0-45.0) Monocytes (%) (Auto) % (1.0-10.0) Eosinophils (%) (Auto) % (0.0-3.0) Basophils (%) (Auto) % (0.0-2.0) Differential Total Cells Counted 100 Neutrophils % (Manual) 85 % (45-75) H Lymphocytes % (Manual) 10 % (20-45) L Monocytes % (Manual) 5 % (1-10) Eosinophils % (Manual) 0 % (0-3) Basophils % (Manual) 0 % (0-2) Band Neutrophils 0 % (0-8) Platelet Estimate Adequate Platelet Morphology Normal Red Blood Cell Morphology Normal Sodium Level 143 MMOL/L (136-145) Potassium Level 5.3 MMOL/L (3.5-5.1) H Chloride Level 109 MMOL/L (98-107) H Carbon Dioxide Level 28 MMOL/L (21-32) Anion Gap 7 mmol/L (5-15) Blood Urea Nitrogen 58 mg/dL (7-18) H Creatinine 2.5 MG/DL (0.55-1.30) H Estimat Glomerular Filtration Rate 30.7 mL/min (>60) Glucose Level 91 MG/DL (74-106) Calcium Level 9.0 MG/DL (8.5-10.1) Phosphorus Level 3.9 MG/DL (2.5-4.9) Magnesium Level 1.9 MG/DL (1.8-2.4) Current Medications Medications (Trade) Dose Ordered Sig/Lewis Route PRN Reason Start Time Stop Time Status Last Admin Dose Admin Acetaminophen (Tylenol) 650 mg Q4H PRN ORAL pain 1-3 04/11/20 18:00 05/11/20 17:59 04/12/20 18:10 Acetaminophen/ Hydrocodone Bitart ([place] 10/325) 1 tab BID PRN ORAL pain 4-10 04/14/20 09:00 04/21/20 08:59 04/14/20 09:26 Amlodipine Besylate (Norvasc) 10 mg DAILY ORAL 04/14/20 09:30 05/14/20 09:29 04/14/20 09:25 Aspirin (Ecotrin) 81 mg DAILY ORAL 04/15/20 09:00 05/30/20 08:59 Azithromycin 500 mg/Dextrose 275 ml @ 275 mls/hr Q24H IV 04/12/20 09:00 04/17/20 08:59 04/14/20 09:29 Dexamethasone Sodium Phosphate (Decadron 10mg/ ml Inj) 6 mg DAILY IV 04/13/20 09:00 04/22/20 09:01 04/14/20 09:27 Dextrose (Dextrose 50%) 25 ml Q30M PRN IV Hypoglycemia 04/11/20 18:00 07/10/20 17:59 Dextrose (Dextrose 50%) 50 ml Q30M PRN IV Hypoglycemia 04/11/20 18:00 07/10/20 17:59 Docusate Sodium (Colace) 100 mg EVERY 12 HOURS ORAL 04/11/20 21:00 05/11/20 20:59 04/13/20 08:13 Famotidine (Pepcid) 40 mg DAILY ORAL 04/12/20 09:00 07/11/20 08:59 04/14/20 09:24 Heparin Sodium (Porcine) (Heparin 5000 units/ml) 5,000 units EVERY 12 HOURS SUBQ 04/11/20 18:07 05/26/20 18:06 04/14/20 09:28 Hydralazine HCl (Apresoline) 10 mg EVERY 6 HOURS PRN IV For High Blood Pressure 04/14/20 09:00 07/13/20 08:59 Hydralazine HCl (Apresoline) 50 mg EVERY 8 HOURS ORAL 04/14/20 11:15 07/13/20 11:14 04/14/20 14:24 Linezolid (Zyvox) 600 mg EVERY 12 HOURS ORAL 04/12/20 21:00 04/17/20 20:59 04/14/20 09:25 Piperacillin Sod/ Tazobactam Sod 3.375 gm/Dextrose 100 ml @ 25 mls/hr EVERY 12 HOURS IVPB 04/12/20 21:00 04/17/20 20:59 04/14/20 09:28 Sodium Chloride 1,000 ml @ 50 mls/hr Q20H IV 04/11/20 19:00 05/11/20 18:59 04/13/20 14:15 Be Proctor MD Apr 14, 2020 18:35
[2020-04-14 20:00] VITALS: BP 138/88
[2020-04-15] VITALS: BP 129/72
[2020-04-15] MEDS: HYDROcodone/Acetamin 10/325 tab ORAL PRN ×2 (03:36→13:34)
[2020-04-15 04:00] VITALS: BP 135/82
[2020-04-15] MEDS: HydrALAZINE 25mg tab ORAL SCH ×3 (06:46→21:32)
[2020-04-15 07:33] LABS: BASOPHILS % (AUTO) 0.4 % (0.0-2.0); HEMATOCRIT 46.3 % (42.0-52.0); HEMOGLOBIN 15.3 G/DL (14.2-18.0); LYMPHOCYTES % (AUTO) 12.3 % (20.0-45.0); MEAN CORPUSCULAR VOLUME 88 FL (80-99); MONOCYTES % (AUTO) 6.5 % (1.0-10.0); NEUTROPHILS % (AUTO) 80.8 % (45.0-75.0); PLATELET COUNT 244 K/UL (150-450); RED BLOOD COUNT 5.25 M/UL (4.70-6.10); RED CELL DISTRIBUTION WIDTH 14.4 % (11.6-14.8); WHITE BLOOD COUNT 5.3 K/UL (4.8-10.8)
[2020-04-15 07:52] LABS: CALCIUM 9.3 MG/DL (8.5-10.1); CREATININE 2.3 MG/DL (0.55-1.30); PHOSPHORUS 3.2 MG/DL (2.5-4.9); POTASSIUM 4.1 MMOL/L (3.5-5.1)
[2020-04-15 08:00] VITALS: BP 143/80
[2020-04-15] MEDS: Docusate 100mg cap ORAL SCH ×3 (09:02→21:32)
[2020-04-15] MEDS: dexAMETHasone 10mg/ml Inj IV SCH (09:02)
[2020-04-15] MEDS: Aspirin EC 81mg tab ORAL SCH (09:02)
[2020-04-15] MEDS: Heparin 5000 units/ml inj SUBQ SCH ×2 (09:04→21:34)
--- NOTE | 2020-04-15 11:49 | Pulmonology Progress Note ---
Subjective ROS Limited/Unobtainable: No Interval Events: leg/back pain tolerable now Constitutional: Reports: fatigue; Denies: fever HEENT: Repors: no symptoms Respiratory: Reports: no symptoms Cardiovascular: Reports: no symptoms Gastrointestinal/Abdominal: Denies: nausea, vomiting, diarrhea Genitourinary: Reports: no symptoms Psychiatric: Denies: depression Skin: Denies: rash Musculoskeletal: Denies: pain Allergies: Uncoded Allergies: VITAMIN B (Allergy, Unknown, 04/11/20) Subjective pt reports severe chronic leg/back pain despite am dose of [place]; pain scale 7 /10 Objective Last 24 Hour Vital Signs Date Time Temp Pulse Resp B/P (MAP) Pulse Ox O2 Delivery O2 Flow Rate FiO2 04/15/20 09:02 78 143/80 04/15/20 09:00 Nasal Cannula 4.0 Nasal Cannula 4.0 04/15/20 08:00 98.0 78 20 143/80 (101) 98 04/15/20 08:00 76 04/15/20 06:46 135/82 04/15/20 04:00 68 04/15/20 04:00 97.5 70 20 135/82 (99) 97 04/15/20 00:00 98.4 85 20 129/72 (91) 95 04/14/20 23:04 138/88 04/14/20 21:00 Nasal Cannula 4.0 Nasal Cannula 4.0 04/14/20 20:00 97.5 76 20 138/88 (105) 95 04/14/20 20:00 59 04/14/20 16:00 91 04/14/20 16:00 98.3 69 21 130/78 (95) 95 04/14/20 14:24 151/97 04/14/20 12:41 151/97 04/14/20 12:00 98.1 85 21 151/97 (115) 95 04/14/20 12:00 61 Intake and Output 04/14/20 04/15/20 19:00 07:00 Intake Total 450 ml 300 ml Balance 450 ml 300 ml Intake Oral 450 ml 300 ml # Voids 3 3 # Bowel Movements 1 1 Objective pt laying in bed; SBP as high as 190, with bradycardia; Cardiology consulted General Appearance: no acute distress HEENT: normocephalic, mucous membranes moist Respiratory: chest wall non-tender, lungs clear Cardiovascular: normal peripheral pulses Abdomen: normal bowel sounds, soft, non tender Extremities: no cyanosis, no edema Microbiology Date/Time Source Procedure Growth Status 04/12/20 14:30 Urine,Clean Catch Urine Culture - Final Escherichia Coli - Esbl Complete Laboratory Tests 04/15/20 05:50: White Blood Count 5.3, Red Blood Count 5.25, Hemoglobin 15.3, Hematocrit 46.3, Mean Corpuscular Volume 88, Mean Corpuscular Hemoglobin 29.1, Mean Corpuscular Hemoglobin Concent 32.9, Red Cell Distribution Width 14.4, Platelet Count 244, Mean Platelet Volume 6.5, Neutrophils (%) (Auto) 80.8H, Lymphocytes (%) (Auto) 12.3L, Monocytes (%) (Auto) 6.5, Eosinophils (%) (Auto) 0.0, Basophils (%) (Auto) 0.4, Sodium Level 142, Potassium Level 4.1, Chloride Level 106, Carbon Dioxide Level 29, Anion Gap 8, Blood Urea Nitrogen 49H, Creatinine 2.3H, Estimat Glomerular Filtration Rate 33.8, Glucose Level 97, Calcium Level 9.3, Phosphorus Level 3.2, Magnesium Level 1.7L Current Medications Medications (Trade) Dose Ordered Sig/Lewis Route PRN Reason Start Time Stop Time Status Last Admin Dose Admin Acetaminophen (Tylenol) 650 mg Q4H PRN ORAL pain 1-3 04/11/20 18:00 05/11/20 17:59 04/12/20 18:10 Acetaminophen/ Hydrocodone Bitart ([place] 10/325) 1 tab BID PRN ORAL pain 4-10 04/14/20 09:00 04/21/20 08:59 04/15/20 03:36 Amlodipine Besylate (Norvasc) 10 mg DAILY ORAL 04/14/20 09:30 05/14/20 09:29 04/15/20 09:02 Aspirin (Ecotrin) 81 mg DAILY ORAL 04/15/20 09:00 05/30/20 08:59 04/15/20 09:02 Dexamethasone Sodium Phosphate (Decadron 10mg/ ml Inj) 6 mg DAILY IV 04/13/20 09:00 04/22/20 09:01 04/15/20 09:02 Dextrose (Dextrose 50%) 25 ml Q30M PRN IV Hypoglycemia 04/11/20 18:00 07/10/20 17:59 Dextrose (Dextrose 50%) 50 ml Q30M PRN IV Hypoglycemia 04/11/20 18:00 07/10/20 17:59 Docusate Sodium (Colace) 100 mg EVERY 12 HOURS ORAL 04/11/20 21:00 05/11/20 20:59 04/15/20 09:02 Famotidine (Pepcid) 40 mg DAILY ORAL 04/12/20 09:00 07/11/20 08:59 04/15/20 09:02 Heparin Sodium (Porcine) (Heparin 5000 units/ml) 5,000 units EVERY 12 HOURS SUBQ 04/11/20 18:07 05/26/20 18:06 04/15/20 09:04 Hydralazine HCl (Apresoline) 10 mg EVERY 6 HOURS PRN IV For High Blood Pressure 04/14/20 09:00 07/13/20 08:59 Hydralazine HCl (Apresoline) 50 mg EVERY 8 HOURS ORAL 04/14/20 11:15 07/13/20 11:14 04/15/20 06:46 Linezolid (Zyvox) 600 mg EVERY 12 HOURS ORAL 04/12/20 21:00 04/17/20 20:59 04/15/20 09:02 Meropenem 500 mg/ Sodium Chloride 50 ml @ 100 mls/hr Q12HR IVPB 04/14/20 21:00 04/19/20 20:59 04/15/20 09:03 Sodium Chloride 1,000 ml @ 50 mls/hr Q20H IV 04/11/20 19:00 05/11/20 18:59 04/15/20 03:34 Assessment/Plan Assessment/Plan 1. COVID-19 pneumonia. - Continue Decadron. - defer to ID. - cont broad-spectrum Abx - CXR 04/14/2020 New small lift mid to lower lung patchy opacity 2. Renal failure. - Renal US Negative for hydronephrosis - 04/15/2020 BUN and Cr improving - per renal 3. History of COPD. - Saturating 95% on 4 lpm NC 4. Severe chronic leg/bag pain - per pain management - Currently on 10 mg [place] BID prn pain 5. DVT prophylaxis - On Lovenox 6. Hyperkalemia - K 5.3 -> 4.1 - s/p Kayexalate - Lasix added 7. HTN - On Amlodipine - Hydralazine added - 2D echo pending, per cardio continue home medications. The care of this patient was discussed with my supervising physician Seen and examined by Dr. Nava as well Time spent for this case was approximately 31 minutes Miguel Duarte Apr 15, 2020 11:49
[2020-04-15 12:00] VITALS: BP 136/81
--- NOTE | 2020-04-15 14:18 | Cardiology Report ---
APPROVED REPORT EXAM: Two-dimensional and M-mode echocardiogram with Doppler and color Doppler. INDICATION Cardiac Disease: CAD M-Mode DIMENSIONS IVSd0.9 (0.7-1.1cm)EPSS0.2 (>1.0cm) LVDd3.6 (3.5-5.6cm) PWd1.0 (0.7-1.1cm) IVSs1.0 cm LVDs2.6 (2.5-4.0cm) PWs1.1 cm <Conclusion> Technically difficult study due to poor parasternal acoustical windows. Normal left ventricular chamber size, systolic function and wall motion to extent visualized. Left ventricular ejection fraction estimated to be 65 %. No left ventricular hypertrophy. No evidence of pericardial effusion. All other cardiac chamber sizes are within normal limits. Focal aortic valve sclerosis with adequate cusp excursion. Thickened mitral valve leaflets with normal excursion. Mitral annulus and aortic root calcification. Pulmonic valve not visualized. Normal tricuspid valve structure. IVC at normal size with physiologic collapse. A color flow and spectral Doppler study was performed and revealed: No aortic regurgitation. No mitral regurgitation. Mitral diastolic velocities suggest reduced left ventricular relaxation c/w mild LV diastolic dysfunction (Grade I ). Mild tricuspid regurgitation. Tricuspid systolic velocities suggests peak right ventricular systolic pressure of 36 mmHg. No pulmonic regurgitation.
--- NOTE | 2020-04-15 14:45 | Cardiology Progress Note ---
Assessment/Plan Status: stable Assessment/Plan 1. COVID-19 viral PNA pt in isolation, on decadron and remdesivir per ID 2. HTN - improved on multiple antihypertensives 3. CAD s/p PCI and stent well preserved LV function, EF 65% ASA daily 3. DEYSI on CKD 3. COPD with exacerbation 4. DMII - insulin dependent 5. UTI; on abx per ID 6. Hyperkalemia SBP improved. Stable, denies chest pain. Echo done, no acute HF. Subjective Cardiovascular: Reports: no symptoms Respiratory: Reports: SOB with excertion Gastrointestinal/Abdominal: Reports: no symptoms Genitourinary: Reports: no symptoms Objective Last 24 Hour Vital Signs Date Time Temp Pulse Resp B/P (MAP) Pulse Ox O2 Delivery O2 Flow Rate FiO2 04/15/20 13:33 136/81 04/15/20 12:00 97.3 88 20 136/81 (99) 98 04/15/20 09:02 78 143/80 04/15/20 09:00 Nasal Cannula 4.0 Nasal Cannula 4.0 04/15/20 08:00 98.0 78 20 143/80 (101) 98 04/15/20 08:00 76 04/15/20 06:46 135/82 04/15/20 04:00 68 04/15/20 04:00 97.5 70 20 135/82 (99) 97 04/15/20 00:00 98.4 85 20 129/72 (91) 95 04/14/20 23:04 138/88 04/14/20 21:00 Nasal Cannula 4.0 Nasal Cannula 4.0 04/14/20 20:00 97.5 76 20 138/88 (105) 95 04/14/20 20:00 59 04/14/20 16:00 91 04/14/20 16:00 98.3 69 21 130/78 (95) 95 General Appearance: no apparent distress EENT: PERRL/EOMI Neck: supple, no JVD Rhythm: NSR Cardiovascular: normal rate, regular rhythm Respiratory/Chest: no respiratory distress, no accessory muscle use Abdomen: soft Intake and Output 04/14/20 04/15/20 19:00 07:00 Intake Total 450 ml 300 ml Balance 450 ml 300 ml Intake Oral 450 ml 300 ml # Voids 3 3 # Bowel Movements 1 1 Laboratory Tests Test 04/15/20 05:50 White Blood Count 5.3 K/UL (4.8-10.8) Red Blood Count 5.25 M/UL (4.70-6.10) Hemoglobin 15.3 G/DL (14.2-18.0) Hematocrit 46.3 % (42.0-52.0) Mean Corpuscular Volume 88 FL (80-99) Mean Corpuscular Hemoglobin 29.1 PG (27.0-31.0) Mean Corpuscular Hemoglobin Concent 32.9 G/DL (32.0-36.0) Red Cell Distribution Width 14.4 % (11.6-14.8) Platelet Count 244 K/UL (150-450) Mean Platelet Volume 6.5 FL (6.5-10.1) Neutrophils (%) (Auto) 80.8 % (45.0-75.0) H Lymphocytes (%) (Auto) 12.3 % (20.0-45.0) L Monocytes (%) (Auto) 6.5 % (1.0-10.0) Eosinophils (%) (Auto) 0.0 % (0.0-3.0) Basophils (%) (Auto) 0.4 % (0.0-2.0) Sodium Level 142 MMOL/L (136-145) Potassium Level 4.1 MMOL/L (3.5-5.1) Chloride Level 106 MMOL/L (98-107) Carbon Dioxide Level 29 MMOL/L (21-32) Anion Gap 8 mmol/L (5-15) Blood Urea Nitrogen 49 mg/dL (7-18) H Creatinine 2.3 MG/DL (0.55-1.30) H Estimat Glomerular Filtration Rate 33.8 mL/min (>60) Glucose Level 97 MG/DL (74-106) Calcium Level 9.3 MG/DL (8.5-10.1) Phosphorus Level 3.2 MG/DL (2.5-4.9) Magnesium Level 1.7 MG/DL (1.8-2.4) Sandra Caro PA-C Apr 15, 2020 14:45
[2020-04-15 16:00] VITALS: BP 138/76
--- NOTE | 2020-04-15 18:23 | Nephrology Progress Note ---
Assessment/Plan Plan #DEYSI on CKD- improving #COVID pneumonia #hypoxemic resp failure #leukocytosis #HTN- accelerated - check renal US-> no hydro, medical renal disease - kayexalate for hyperK today - add amlodipine 10mg daily - 1/2NS at 50 cc/hr - continue antibiotics - zosyn and linezolid - monitor BMP, mag and phos - strict I&Os - avoid nephrotoxins - monitor weights Time spent 65 min Subjective Subjective Cr downtrending breathing stable K 5.3 BP elevated renal US: Impression: Negative for hydronephrosis Echogenic kidneys bilaterally, associated with medical renal disease Incidental finding bilateral renal cysts. Objective Objective Last 24 Hour Vital Signs Date Time Temp Pulse Resp B/P (MAP) Pulse Ox O2 Delivery O2 Flow Rate FiO2 04/15/20 16:00 83 04/15/20 16:00 98.1 86 20 138/76 (96) 96 04/15/20 13:33 136/81 04/15/20 12:00 102 04/15/20 12:00 97.3 88 20 136/81 (99) 98 04/15/20 09:02 78 143/80 04/15/20 09:00 Nasal Cannula 4.0 Nasal Cannula 4.0 04/15/20 08:00 98.0 78 20 143/80 (101) 98 04/15/20 08:00 76 04/15/20 06:46 135/82 04/15/20 04:00 68 04/15/20 04:00 97.5 70 20 135/82 (99) 97 04/15/20 00:00 98.4 85 20 129/72 (91) 95 04/14/20 23:04 138/88 04/14/20 21:00 Nasal Cannula 4.0 Nasal Cannula 4.0 04/14/20 20:00 97.5 76 20 138/88 (105) 95 04/14/20 20:00 59 Intake and Output 04/14/20 04/15/20 19:00 07:00 Intake Total 450 ml 300 ml Balance 450 ml 300 ml Intake Oral 450 ml 300 ml # Voids 3 3 # Bowel Movements 1 1 Laboratory Tests 04/15/20 05:50: White Blood Count 5.3, Red Blood Count 5.25, Hemoglobin 15.3, Hematocrit 46.3, Mean Corpuscular Volume 88, Mean Corpuscular Hemoglobin 29.1, Mean Corpuscular Hemoglobin Concent 32.9, Red Cell Distribution Width 14.4, Platelet Count 244, Mean Platelet Volume 6.5, Neutrophils (%) (Auto) 80.8H, Lymphocytes (%) (Auto) 12.3L, Monocytes (%) (Auto) 6.5, Eosinophils (%) (Auto) 0.0, Basophils (%) (Auto) 0.4, Sodium Level 142, Potassium Level 4.1, Chloride Level 106, Carbon Dioxide Level 29, Anion Gap 8, Blood Urea Nitrogen 49H, Creatinine 2.3H, Estimat Glomerular Filtration Rate 33.8, Glucose Level 97, Calcium Level 9.3, Phosphorus Level 3.2, Magnesium Level 1.7L Height (Feet): 6 Height (Inches): 1.00 Weight (Pounds): 132 Rocco Messina M.D. Apr 15, 2020 18:23
[2020-04-16] MEDS: HYDROcodone/Acetamin 10/325 tab ORAL PRN (00:41)
[2020-04-16 00:43] VITALS: BP 161/95
[2020-04-16 04:00] VITALS: BP 132/93
[2020-04-16] MEDS: HydrALAZINE 25mg tab ORAL SCH ×3 (06:00→22:31)
[2020-04-16 08:00] VITALS: BP 161/98
[2020-04-16] MEDS: Aspirin EC 81mg tab ORAL SCH (08:12)
[2020-04-16] MEDS: dexAMETHasone 10mg/ml Inj IV SCH (08:12)
[2020-04-16] MEDS: Heparin 5000 units/ml inj SUBQ SCH ×2 (08:14→21:13)
[2020-04-16] MEDS: Docusate 100mg cap ORAL SCH ×2 (08:16→21:12)
[2020-04-16] MEDS ORDERED: Tubing IV Secondary IV ONE (09:26)
--- NOTE | 2020-04-16 10:37 | General Progress Note ---
Subjective Date patient seen: Apr 16, 2020 Time patient seen: 09:30 - am Allergies: Uncoded Allergies: VITAMIN B (Allergy, Unknown, 04/11/20) Subjective HISTORY OF PRESENT ILLNESS: This is a 74-year-old male, who is being seen on the telemetry floor of [facility]. Patient is in bed and showing no signs of pain or distress. Pain has been tolerated on the [place] 2 doses in the last 24hrs. No new complaints at this time. REVIEW OF SYSTEMS: Denies rash, fever, chills, sweating, dizziness, drowsiness, blurred vision, sore throat, change in his weight. No nausea, vomiting, diarrhea, or blood in the stool or urine. No dysuria. Objective Last 24 Hour Vital Signs Date Time Temp Pulse Resp B/P (MAP) Pulse Ox O2 Delivery O2 Flow Rate FiO2 04/16/20 09:00 Room Air Room Air 04/16/20 08:12 84 161/98 04/16/20 08:00 81 04/16/20 08:00 97.9 84 20 161/98 (119) 96 04/16/20 06:00 132/93 04/16/20 04:00 75 04/16/20 04:00 96.8 82 20 132/93 (106) 96 04/16/20 01:11 98.1 04/16/20 00:43 98.1 84 20 161/95 (117) 97 04/16/20 00:41 161/95 04/16/20 00:00 104 04/15/20 21:32 146/85 04/15/20 21:00 Room Air Room Air 04/15/20 20:00 78 04/15/20 16:00 83 04/15/20 16:00 98.1 86 20 138/76 (96) 96 04/15/20 13:33 136/81 04/15/20 12:00 102 04/15/20 12:00 97.3 88 20 136/81 (99) 98 Intake and Output 04/15/20 04/16/20 19:00 07:00 Intake Total 510 ml 500 ml Output Total 900 ml 600 ml Balance -390 ml -100 ml Intake Oral 510 ml IV Total 500 ml Output Urine Total 900 ml 600 ml # Bowel Movements 3 1 Height (Feet): 6 Height (Inches): 1.00 Weight (Pounds): 132 Objective PHYSICAL EXAMINATION: GENERAL: Alert, awake, and oriented. LUNGS: Decreased breath sounds bilaterally. HEART: S1 and S2, regular. ABDOMEN: Soft and nontender. EXTREMITIES: No cyanosis. No clubbing. NEURO: No changes. Assessment/Plan Assessment/Plan: (1) Lumbar DDD (2) Lumbar Spondylosis (3) Lumbar Radiculopathy (4) Covid 19+ Patient to be continued on [place] as needed. D/w Dr. Mendez and he concurred. Nicholas Escobedo Apr 16, 2020 10:37
--- NOTE | 2020-04-16 11:11 | Diagnostic Imaging Report ---
EXAM: XR Chest, 1 View CLINICAL HISTORY: INFECT TECHNIQUE: Frontal view of the chest. COMPARISON: Chest radiograph on 04/14/2020 FINDINGS: Hardware: None. Lungs/pleura: Hyperinflation of the lungs with probable emphysematous changes again noted, prominent in the mid and lower lungs. Similar interstitial opacities in the upper lungs may represent chronic lung changes/scarring versus infectious/inflammatory process. Slightly increased opacities in the left lower lung and right mid and lower lung may represent an infectious/inflammatory process. Heart/mediastinum: Normal. No cardiomegaly. Soft tissues: Unremarkable. Bones: No acute fracture. Upper abdomen: Normal. IMPRESSION: 1. Hyperinflation of the lungs with probable emphysematous changes again noted, prominent in the mid and lower lungs. 2. Similar interstitial opacities in the upper lungs may represent chronic lung changes/scarring versus infectious/inflammatory process. 3. Slightly increased opacities in the left lower lung and right mid and lower lung may represent an infectious/inflammatory process.
[2020-04-16 12:00] VITALS: BP 167/91
--- NOTE | 2020-04-16 12:30 | Pulmonology Progress Note ---
Subjective ROS Limited/Unobtainable: No Interval Events: leg/back pain tolerable now Constitutional: Reports: fatigue; Denies: fever HEENT: Repors: no symptoms Respiratory: Reports: shortness of breath Cardiovascular: Reports: no symptoms Gastrointestinal/Abdominal: Denies: nausea, vomiting, diarrhea Genitourinary: Reports: no symptoms Psychiatric: Denies: depression Skin: Denies: rash Musculoskeletal: Denies: pain Allergies: Uncoded Allergies: VITAMIN B (Allergy, Unknown, 04/11/20) Subjective pt reports severe chronic leg/back pain despite am dose of [place]; pain scale 7/10 Objective Last 24 Hour Vital Signs Date Time Temp Pulse Resp B/P (MAP) Pulse Ox O2 Delivery O2 Flow Rate FiO2 04/16/20 11:23 167/91 04/16/20 09:00 Room Air Room Air 04/16/20 08:12 84 161/98 04/16/20 08:00 81 04/16/20 08:00 97.9 84 20 161/98 (119) 96 04/16/20 06:00 132/93 04/16/20 04:00 75 04/16/20 04:00 96.8 82 20 132/93 (106) 96 04/16/20 01:11 98.1 04/16/20 00:43 98.1 84 20 161/95 (117) 97 04/16/20 00:41 161/95 04/16/20 00:00 104 04/15/20 21:32 146/85 04/15/20 21:00 Room Air Room Air 04/15/20 20:00 78 04/15/20 16:00 83 04/15/20 16:00 98.1 86 20 138/76 (96) 96 04/15/20 13:33 136/81 Intake and Output 04/15/20 04/16/20 19:00 07:00 Intake Total 510 ml 500 ml Output Total 900 ml 600 ml Balance -390 ml -100 ml Intake Oral 510 ml IV Total 500 ml Output Urine Total 900 ml 600 ml # Bowel Movements 3 1 Objective pt laying in bed; SBP as high as 190, with bradycardia; Cardiology consulted General Appearance: no acute distress HEENT: normocephalic, mucous membranes moist Respiratory: chest wall non-tender, lungs clear Cardiovascular: normal peripheral pulses Abdomen: normal bowel sounds, soft, non tender Extremities: no cyanosis, no edema Current Medications Medications (Trade) Dose Ordered Sig/Lewis Route PRN Reason Start Time Stop Time Status Last Admin Dose Admin Acetaminophen (Tylenol) 650 mg Q4H PRN ORAL pain 1-3 04/11/20 18:00 05/11/20 17:59 04/12/20 18:10 Acetaminophen/ Hydrocodone Bitart ([place] 10/325) 1 tab BID PRN ORAL pain 4-10 04/14/20 09:00 04/21/20 08:59 04/16/20 00:41 Amlodipine Besylate (Norvasc) 10 mg DAILY ORAL 04/14/20 09:30 05/14/20 09:29 04/16/20 08:12 Aspirin (Ecotrin) 81 mg DAILY ORAL 04/15/20 09:00 05/30/20 08:59 04/16/20 08:12 Dexamethasone Sodium Phosphate (Decadron 10mg/ ml Inj) 6 mg DAILY IV 04/13/20 09:00 04/22/20 09:01 04/16/20 08:12 Dextrose (Dextrose 50%) 25 ml Q30M PRN IV Hypoglycemia 04/11/20 18:00 07/10/20 17:59 Dextrose (Dextrose 50%) 50 ml Q30M PRN IV Hypoglycemia 04/11/20 18:00 07/10/20 17:59 Docusate Sodium (Colace) 100 mg EVERY 12 HOURS ORAL 04/11/20 21:00 05/11/20 20:59 04/15/20 09:02 Famotidine (Pepcid) 40 mg DAILY ORAL 04/12/20 09:00 07/11/20 08:59 04/16/20 08:12 Heparin Sodium (Porcine) (Heparin 5000 units/ml) 5,000 units EVERY 12 HOURS SUBQ 04/11/20 18:07 05/26/20 18:06 04/16/20 08:14 Hydralazine HCl (Apresoline) 10 mg EVERY 6 HOURS PRN IV For High Blood Pressure 04/14/20 09:00 07/13/20 08:59 04/16/20 11:23 Hydralazine HCl (Apresoline) 50 mg EVERY 8 HOURS ORAL 04/14/20 11:15 07/13/20 11:14 04/15/20 21:32 Linezolid (Zyvox) 600 mg EVERY 12 HOURS ORAL 04/12/20 21:00 04/17/20 20:59 04/16/20 08:13 Meropenem 500 mg/ Sodium Chloride 50 ml @ 100 mls/hr Q12HR IVPB 04/14/20 21:00 04/19/20 20:59 04/16/20 08:13 Sodium Chloride 1,000 ml @ 50 mls/hr Q20H IV 04/11/20 19:00 05/11/20 18:59 04/16/20 00:42 Assessment/Plan Assessment/Plan 1. COVID-19 pneumonia. - Continue Decadron. - defer to ID re addistional therapies. - cont broad-spectrum Abx - CXR 04/14/2020 New small left mid to lower lung patchy opacity - CXR 04/16/2020 slightly increased opacities in the L lower lung and R mid and lower lung 2. Renal failure. - Renal US Negative for hydronephrosis - 04/16/2020 BUN and Cr improving - per renal 3. History of COPD. - Saturating 95% on 2 lpm NC - SOB earlier; pt requests breathing tx - albuterol I adebrittny 4. Severe chronic leg/bag pain - per pain management - Currently on 10 mg [place] BID prn pain 5. DVT prophylaxis - On Lovenox 6. Hyperkalemia - K 5.3 -> 4.1 - s/p Kayexalate - Lasix added 7. HTN - On Amlodipine - On Hydralazine prn - 2D echo , per cardio - added diuretics continue home medications. The care of this patient was discussed with my supervising physician Seen and examined by Dr. Nava as well The history of Willy Mejia has been reviewed and management options for him have been examined and discussed by Derrek Nava. I have personally examined and interviewed the patient. Time spent for this case was approximately 31 minutes Miguel Duarte Apr 16, 2020 12:29 Derrek Nava MD Apr 16, 2020 16:39
--- NOTE | 2020-04-16 12:35 | Cardiology Progress Note ---
Assessment/Plan Status Narrative CXR 04/16/20 1. Hyperinflation of the lungs with probable emphysematous changes again noted, prominent in the mid and lower lungs. 2. Similar interstitial opacities in the upper lungs may represent chronic lung changes/scarring versus infectious/inflammatory process. 3. Slightly increased opacities in the left lower lung and right mid and lower lung may represent an infectious/inflammatory process. Assessment/Plan 1. COVID-19 viral PNA pt in isolation, on decadron and remdesivir per ID CXR shows worsening interstitial disease 2. HTN - elevated today 3. CAD s/p PCI and stent well preserved LV function, EF 65% ASA daily 3. HFpEF, chronic diastolic HF with preserved EF 3. COPD with exacerbation 4. DMII - insulin dependent 5. UTI; on abx per ID 6. DEYSI on CKD Worsening SOB, denies chest pain. Echo no acute HF. Subjective ROS Limited/Unobtainable: Yes Cardiovascular: Reports: no symptoms Respiratory: Reports: SOB at rest Gastrointestinal/Abdominal: Reports: no symptoms Genitourinary: Reports: no symptoms Subjective More short of breath today than yesterday, breathing with effort on O2 NC. Denies chest pain. Objective Last 24 Hour Vital Signs Date Time Temp Pulse Resp B/P (MAP) Pulse Ox O2 Delivery O2 Flow Rate FiO2 04/16/20 11:23 167/91 04/16/20 09:00 Room Air Room Air 04/16/20 08:12 84 161/98 04/16/20 08:00 81 04/16/20 08:00 97.9 84 20 161/98 (119) 96 04/16/20 06:00 132/93 04/16/20 04:00 75 04/16/20 04:00 96.8 82 20 132/93 (106) 96 04/16/20 01:11 98.1 04/16/20 00:43 98.1 84 20 161/95 (117) 97 04/16/20 00:41 161/95 04/16/20 00:00 104 04/15/20 21:32 146/85 04/15/20 21:00 Room Air Room Air 04/15/20 20:00 78 04/15/20 16:00 83 04/15/20 16:00 98.1 86 20 138/76 (96) 96 04/15/20 13:33 136/81 General Appearance: alert, patient on isolation EENT: PERRL/EOMI Neck: supple, no JVD Rhythm: NSR Cardiovascular: normal rate, regular rhythm Respiratory/Chest: no accessory muscle use, decreased breath sounds Abdomen: non tender, soft Extremities: trace edema 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
--- NOTE | 2020-04-16 13:28 | Nephrology Progress Note ---
Assessment/Plan Plan #DEYSI on CKD- improving #COVID pneumonia #hypoxemic resp failure #leukocytosis #HTN- accelerated - check renal US-> no hydro, medical renal disease - kayexalate for hyperK today - add amlodipine 10mg daily - 1/2NS at 50 cc/hr - continue antibiotics - zosyn and linezolid - monitor BMP, mag and phos - strict I&Os - avoid nephrotoxins - monitor weights Time spent 65 min Subjective ROS Limited/Unobtainable: No Constitutional: Reports: weakness HEENT: Denies: no symptoms, eye pain, blurred vision, tearing, double vision, ear pain, ear discharge, nose pain, nose congestion, throat pain, throat swelling, mouth pain, mouth swelling, other Genitourinary: Denies: no symptoms, burning, discharge, frequency, flank pain, hematuria, incontinence, pain, urgency, other Neurologic/Psychiatric: Denies: no symptoms, anxiety, depressed, emotional problems, headache, numbness, paresthesia, pre-existing deficit, seizure, tingling, tremors, weakness, other Subjective Cr downtrending breathing stable K 5.3 BP elevated renal US: Impression: Negative for hydronephrosis Echogenic kidneys bilaterally, associated with medical renal disease Incidental finding bilateral renal cysts. Objective Objective Last 24 Hour Vital Signs Date Time Temp Pulse Resp B/P (MAP) Pulse Ox O2 Delivery O2 Flow Rate FiO2 04/16/20 12:00 96.4 100 20 167/91 (116) 95 04/16/20 12:00 99 04/16/20 11:23 167/91 04/16/20 09:00 Room Air Room Air 04/16/20 08:12 84 161/98 04/16/20 08:00 81 04/16/20 08:00 97.9 84 20 161/98 (119) 96 04/16/20 06:00 132/93 04/16/20 04:00 75 04/16/20 04:00 96.8 82 20 132/93 (106) 96 04/16/20 01:11 98.1 04/16/20 00:43 98.1 84 20 161/95 (117) 97 04/16/20 00:41 161/95 04/16/20 00:00 104 04/15/20 21:32 146/85 04/15/20 21:00 Room Air Room Air 04/15/20 20:00 78 04/15/20 16:00 83 04/15/20 16:00 98.1 86 20 138/76 (96) 96 04/15/20 13:33 136/81 Intake and Output 04/15/20 04/16/20 19:00 07:00 Intake Total 510 ml 500 ml Output Total 900 ml 600 ml Balance -390 ml -100 ml Intake Oral 510 ml IV Total 500 ml Output Urine Total 900 ml 600 ml # Bowel Movements 3 1 Height (Feet): 6 Height (Inches): 1.00 Weight (Pounds): 132 Rocco Messina M.D. Apr 16, 2020 13:28
[2020-04-16] MEDS ORDERED: Albuterol 90mcg Inhaler 8gm INH PRN (13:45)
[2020-04-16 16:00] VITALS: BP 135/79
[2020-04-16 20:00] VITALS: BP 141/81
--- NOTE | 2020-04-16 20:53 | Infectious Diseases Prog Note ---
Assessment/Plan Assessment/Plan ASSESSMENT AND PLAN: 1. esbl e.coli uti, covid-19 infection, pneumonia, sepsis, fevers, leukocytosis - meropenem - day # 5 abx - dexamethasone - day # 5 - monitor clinically, hypoxia, labs and chest x-ray - clinically stable for now 2. Renal failure. 3. COVID-19 infection history. 4. The patient is anemic. 5. No history of diabetes and hypertension. 6. Renal failure. Treatment per Renal and Medicine. 7. Allergy to vitamin D. 8. Social history is negative. 9. Family history is noncontributory. 10. MAR is noted. 11. Case was discussed with RN. 12. COVID isolation. 13. Case was discussed with Dr. Nava. Subjective Constitutional: Denies: fever HEENT: Denies: congestion Respiratory: Denies: shortness of breath Cardiovascular: Denies: chest pain Gastrointestinal/Abdominal: Denies: nausea, vomiting, diarrhea Genitourinary: Reports: other - no contreras ; Denies: dysuria, hematuria Psychiatric: Denies: depression Skin: Denies: rash Hematologic: Denies: bleeding Musculoskeletal: Denies: pain Allergies: Uncoded Allergies: VITAMIN B (Allergy, Unknown, 04/11/20) Objective Last 24 Hour Vital Signs Date Time Temp Pulse Resp B/P (MAP) Pulse Ox O2 Delivery O2 Flow Rate FiO2 04/16/20 16:00 106 04/16/20 16:00 97.8 107 20 135/79 (97) 93 04/16/20 14:11 127/94 04/16/20 12:00 96.4 100 20 167/91 (116) 95 04/16/20 12:00 99 04/16/20 11:23 167/91 04/16/20 09:00 Room Air Room Air 04/16/20 08:12 84 161/98 04/16/20 08:00 81 04/16/20 08:00 97.9 84 20 161/98 (119) 96 04/16/20 06:00 132/93 04/16/20 04:00 75 04/16/20 04:00 96.8 82 20 132/93 (106) 96 04/16/20 01:11 98.1 04/16/20 00:43 98.1 84 20 161/95 (117) 97 04/16/20 00:41 161/95 04/16/20 00:00 104 04/15/20 21:32 146/85 04/15/20 21:00 Room Air Room Air Height (Feet): 6 Height (Inches): 1.00 Weight (Pounds): 132 General Appearance: no acute distress HEENT: normocephalic, atraumatic, anicteric Respiratory/Chest: crackles/rales, rhonchi - bilaterally Cardiovascular: normal rate, regular rhythm, no gallop/murmur, no JVD Abdomen: normal bowel sounds, soft, non tender, no organomegaly, non distended Genitourinary: other - no contreras Extremities: no cyanosis Skin: no rash Neurologic/Psychiatric: auto damage adjuster II-XII grossly normal, alert, oriented x 3, responsive Lymphatic: no neck adenopathy Musculoskeletal: no effusion Chest -x -ray - 04/14/20 - Indication: Shortness of breath Technique: One view of the chest Comparison: 04/11/2020 Findings: Interim development of small focal patchy opacity at the left mid and lower lung. There is some scarring or atelectasis in the left mid and upper lung. Infiltrate in the right upper lobe, hyperinflation of the right lower lobe is again demonstrated. Left sided pleural thickening versus fluid is unchanged. Impression: New small left mid to lower lung patchy opacity, possibly a small focus of consolidation. Otherwise stable findings as described Chest x-ray - 04/16/20 - IMPRESSION: 1. Hyperinflation of the lungs with probable emphysematous changes again noted, prominent in the mid and lower lungs. 2. Similar interstitial opacities in the upper lungs may represent chronic lung changes/scarring versus infectious/inflammatory process. 3. Slightly increased opacities in the left lower lung and right mid and lower lung may represent an infectious/inflammatory process. Microbiology Date/Time Source Procedure Growth Status 04/12/20 14:30 Urine,Clean Catch Urine Culture - Final Escherichia Coli - Esbl Complete 04/11/20 12:05 Blood Blood Culture - Preliminary NO GROWTH AFTER 4 DAYS Resulted Labs Test 04/14/20 05:44 04/15/20 05:50 White Blood Count 5.1 K/UL (4.8-10.8) 5.3 K/UL (4.8-10.8) Red Blood Count 4.52 M/UL (4.70-6.10) 5.25 M/UL (4.70-6.10) Hemoglobin 13.3 G/DL (14.2-18.0) 15.3 G/DL (14.2-18.0) Hematocrit 40.0 % (42.0-52.0) 46.3 % (42.0-52.0) Mean Corpuscular Volume 89 FL (80-99) 88 FL (80-99) Mean Corpuscular Hemoglobin 29.4 PG (27.0-31.0) 29.1 PG (27.0-31.0) Mean Corpuscular Hemoglobin Concent 33.2 G/DL (32.0-36.0) 32.9 G/DL (32.0-36.0) Red Cell Distribution Width 14.9 % (11.6-14.8) 14.4 % (11.6-14.8) Platelet Count 212 K/UL (150-450) 244 K/UL (150-450) Mean Platelet Volume 6.8 FL (6.5-10.1) 6.5 FL (6.5-10.1) Neutrophils (%) (Auto) % (45.0-75.0) 80.8 % (45.0-75.0) Lymphocytes (%) (Auto) % (20.0-45.0) 12.3 % (20.0-45.0) Monocytes (%) (Auto) % (1.0-10.0) 6.5 % (1.0-10.0) Eosinophils (%) (Auto) % (0.0-3.0) 0.0 % (0.0-3.0) Basophils (%) (Auto) % (0.0-2.0) 0.4 % (0.0-2.0) Differential Total Cells Counted 100 Neutrophils % (Manual) 85 % (45-75) Lymphocytes % (Manual) 10 % (20-45) Monocytes % (Manual) 5 % (1-10) Eosinophils % (Manual) 0 % (0-3) Basophils % (Manual) 0 % (0-2) Band Neutrophils 0 % (0-8) Platelet Estimate Adequate Platelet Morphology Normal Red Blood Cell Morphology Normal Sodium Level 143 MMOL/L (136-145) 142 MMOL/L (136-145) Potassium Level 5.3 MMOL/L (3.5-5.1) 4.1 MMOL/L (3.5-5.1) Chloride Level 109 MMOL/L (98-107) 106 MMOL/L (98-107) Carbon Dioxide Level 28 MMOL/L (21-32) 29 MMOL/L (21-32) Anion Gap 7 mmol/L (5-15) 8 mmol/L (5-15) Blood Urea Nitrogen 58 mg/dL (7-18) 49 mg/dL (7-18) Creatinine 2.5 MG/DL (0.55-1.30) 2.3 MG/DL (0.55-1.30) Estimat Glomerular Filtration Rate 30.7 mL/min (>60) 33.8 mL/min (>60) Glucose Level 91 MG/DL (74-106) 97 MG/DL (74-106) Calcium Level 9.0 MG/DL (8.5-10.1) 9.3 MG/DL (8.5-10.1) Phosphorus Level 3.9 MG/DL (2.5-4.9) 3.2 MG/DL (2.5-4.9) Magnesium Level 1.9 MG/DL (1.8-2.4) 1.7 MG/DL (1.8-2.4) Current Medications Medications (Trade) Dose Ordered Sig/Lewis Route PRN Reason Start Time Stop Time Status Last Admin Dose Admin Acetaminophen (Tylenol) 650 mg Q4H PRN ORAL pain 1-3 04/11/20 18:00 05/11/20 17:59 04/12/20 18:10 Acetaminophen/ Hydrocodone Bitart ([place] 10/325) 1 tab BID PRN ORAL pain 4-10 04/14/20 09:00 04/21/20 08:59 04/16/20 00:41 Albuterol Sulfate (Proventil MDI) 2 puff Q4H PRN INH Shortness of Breath 04/16/20 13:45 07/15/20 13:44 Amlodipine Besylate (Norvasc) 10 mg DAILY ORAL 04/14/20 09:30 05/14/20 09:29 04/16/20 08:12 Aspirin (Ecotrin) 81 mg DAILY ORAL 04/15/20 09:00 05/30/20 08:59 12/6/20 08:12 Dexamethasone Sodium Phosphate (Decadron 10mg/ ml Inj) 6 mg DAILY IV 04/13/20 09:00 04/22/20 09:01 04/16/20 08:12 Dextrose (Dextrose 50%) 25 ml Q30M PRN IV Hypoglycemia 04/11/20 18:00 07/10/20 17:59 Dextrose (Dextrose 50%) 50 ml Q30M PRN IV Hypoglycemia 04/11/20 18:00 07/10/20 17:59 Docusate Sodium (Colace) 100 mg EVERY 12 HOURS ORAL 04/11/20 21:00 05/11/20 20:59 04/15/20 09:02 Famotidine (Pepcid) 40 mg DAILY ORAL 04/12/20 09:00 07/11/20 08:59 04/16/20 08:12 Heparin Sodium (Porcine) (Heparin 5000 units/ml) 5,000 units EVERY 12 HOURS SUBQ 04/11/20 18:07 05/26/20 18:06 04/16/20 08:14 Hydralazine HCl (Apresoline) 10 mg EVERY 6 HOURS PRN IV For High Blood Pressure 04/14/20 09:00 07/13/20 08:59 04/16/20 11:23 Hydralazine HCl (Apresoline) 50 mg EVERY 8 HOURS ORAL 04/14/20 11:15 07/13/20 11:14 04/16/20 14:11 Linezolid (Zyvox) 600 mg EVERY 12 HOURS ORAL 04/12/20 21:00 04/17/20 20:59 04/16/20 08:13 Meropenem 500 mg/ Sodium Chloride 50 ml @ 100 mls/hr Q12HR IVPB 04/14/20 21:00 04/19/20 20:59 04/16/20 08:13 Metoprolol Tartrate (Lopressor) 25 mg Q12HR ORAL 04/16/20 21:00 07/15/20 20:59 Sodium Chloride 1,000 ml @ 50 mls/hr Q20H IV 04/11/20 19:00 05/11/20 18:59 04/16/20 18:11 Be Proctor MD Apr 16, 2020 20:53
[2020-04-17] VITALS: BP 132/84
[2020-04-17 04:00] VITALS: BP 166/104
[2020-04-17] MEDS: HydrALAZINE 25mg tab ORAL SCH ×3 (05:42→22:14)
[2020-04-17 08:00] VITALS: BP 160/100
--- NOTE | 2020-04-17 08:31 | General Progress Note ---
Subjective Date patient seen: Apr 17, 2020 Time patient seen: 07:00 - am Allergies: Uncoded Allergies: VITAMIN B (Allergy, Unknown, 04/11/20) Subjective HISTORY OF PRESENT ILLNESS: This is a 74-year-old male, who is being seen on the telemetry floor of [facility]. Patient resting in bed and showing no signs of pain or distress. Pain is tolerated on the [place]. No new complaints at this time. REVIEW OF SYSTEMS: Denies rash, fever, chills, sweating, dizziness, drowsiness, blurred vision, sore throat, change in his weight. No nausea, vomiting, diarrhea, or blood in the stool or urine. No dysuria. Objective Last 24 Hour Vital Signs Date Time Temp Pulse Resp B/P (MAP) Pulse Ox O2 Delivery O2 Flow Rate FiO2 04/17/20 05:42 166/104 04/17/20 04:00 97.1 93 20 166/104 (124) 95 04/17/20 04:00 78 04/17/20 00:00 83 20 132/84 (100) 04/17/20 00:00 78 04/16/20 22:31 131/93 04/16/20 21:12 98 141/81 04/16/20 21:00 Room Air Room Air 04/16/20 20:00 98.1 98 20 141/81 (101) 95 04/16/20 20:00 109 04/16/20 16:00 106 04/16/20 16:00 97.8 107 20 135/79 (97) 93 04/16/20 14:11 127/94 04/16/20 12:00 96.4 100 20 167/91 (116) 95 04/16/20 12:00 99 04/16/20 11:23 167/91 04/16/20 09:00 Room Air Room Air Intake and Output 04/16/20 04/17/20 19:00 07:00 Intake Total 390 ml 180 ml Output Total 900 ml 300 ml Balance -510 ml -120 ml Intake Oral 390 ml 180 ml Output Urine Total 900 ml 300 ml # Bowel Movements 3 2 Height (Feet): 6 Height (Inches): 1.00 Weight (Pounds): 132 Objective PHYSICAL EXAMINATION: GENERAL: Alert, awake, and oriented. LUNGS: Decreased breath sounds bilaterally. HEART: S1 and S2, regular. ABDOMEN: Soft and nontender. EXTREMITIES: No cyanosis. No clubbing. NEURO: No changes. Assessment/Plan Assessment/Plan: (1) Lumbar DDD (2) Lumbar Spondylosis (3) Lumbar Radiculopathy (4) Covid 19+ Patient to be continued on [place] as needed. D/w Dr. Mendez and he concurred. Nicholas Escobedo Apr 17, 2020 08:31
[2020-04-17] MEDS: dexAMETHasone 10mg/ml Inj IV SCH (09:00)
[2020-04-17] MEDS: Heparin 5000 units/ml inj SUBQ SCH ×2 (09:00→22:17)
[2020-04-17] MEDS: Aspirin EC 81mg tab ORAL SCH (09:24)
[2020-04-17] MEDS: Docusate 100mg cap ORAL SCH ×2 (09:24→21:00)
--- NOTE | 2020-04-17 09:52 | Cardiology Progress Note ---
Assessment/Plan Status: unchanged Assessment/Plan 1. COVID-19 viral PNA pt in isolation, on decadron and remdesivir per ID CXR shows worsening interstitial disease 2. HTN - on multiple antihypertensives, still elevated 3. CAD s/p PCI and stent well preserved LV function, EF 65% ASA daily 3. HFpEF, chronic diastolic HF with preserved EF 3. COPD with exacerbation 4. DMII - insulin dependent 5. UTI; on abx per ID 6. DEYSI on CKD Called overnight due to changes in tele strip. EKG and troponin pending this AM, pt denies chest pain. Echo no acute HF. Subjective ROS Limited/Unobtainable: No Cardiovascular: Reports: no symptoms Respiratory: Reports: shortness of breath Gastrointestinal/Abdominal: Reports: no symptoms Genitourinary: Reports: no symptoms Subjective Still short of breath today, on O2 NC. Denies chest pain. Objective Last 24 Hour Vital Signs Date Time Temp Pulse Resp B/P (MAP) Pulse Ox O2 Delivery O2 Flow Rate FiO2 04/17/20 09:24 78 166/104 04/17/20 09:24 78 166/104 04/17/20 05:42 166/104 04/17/20 04:00 97.1 93 20 166/104 (124) 95 04/17/20 04:00 78 04/17/20 00:00 83 20 132/84 (100) 04/17/20 00:00 78 04/16/20 22:31 131/93 04/16/20 21:12 98 141/81 04/16/20 21:00 Room Air Room Air 04/16/20 20:00 98.1 98 20 141/81 (101) 95 04/16/20 20:00 109 04/16/20 16:00 106 04/16/20 16:00 97.8 107 20 135/79 (97) 93 04/16/20 14:11 127/94 04/16/20 12:00 96.4 100 20 167/91 (116) 95 04/16/20 12:00 99 04/16/20 11:23 167/91 General Appearance: agitated, patient on isolation EENT: PERRL/EOMI Neck: no JVD Rhythm: NSR Cardiovascular: normal rate, regular rhythm Respiratory/Chest: decreased breath sounds Abdomen: non tender Extremities: no swelling Neurologic: oriented x 3 Intake and Output 04/16/20 04/17/20 19:00 07:00 Intake Total 390 ml 180 ml Output Total 900 ml 300 ml Balance -510 ml -120 ml Intake Oral 390 ml 180 ml Output Urine Total 900 ml 300 ml # Bowel Movements 3 2 CXR: reviewed Sandra Monique PA-C Apr 17, 2020 09:52
[2020-04-17 10:40] LABS: BASOPHILS % (AUTO) 0.9 % (0.0-2.0); EOSINOPHILS % (AUTO) 0.1 % (0.0-3.0); HEMOGLOBIN 16.5 G/DL (14.2-18.0); LYMPHOCYTES % (AUTO) 11.1 % (20.0-45.0); MEAN CORPUSCULAR VOLUME 84 FL (80-99); MONOCYTES % (AUTO) 8.7 % (1.0-10.0); NEUTROPHILS % (AUTO) 79.2 % (45.0-75.0); PLATELET COUNT 283 K/UL (150-450); RED BLOOD COUNT 5.84 M/UL (4.70-6.10); RED CELL DISTRIBUTION WIDTH 15.6 % (11.6-14.8); WHITE BLOOD COUNT 5.2 K/UL (4.8-10.8)
[2020-04-17 11:40] LABS: BLOOD UREA NITROGEN 44 mg/dL (7-18); CALCIUM 9.6 MG/DL (8.5-10.1); CARBON DIOXIDE 24 MMOL/L (21-32)
[2020-04-17 11:47] LABS: CHLORIDE 106 MMOL/L (98-107); POTASSIUM 4.2 MMOL/L (3.5-5.1); SODIUM 142 MMOL/L (136-145)
--- NOTE | 2020-04-17 11:54 | Pulmonology Progress Note ---
Subjective ROS Limited/Unobtainable: No Interval Events: leg/back pain tolerable now Constitutional: Denies: fever HEENT: Repors: no symptoms Respiratory: Reports: shortness of breath Cardiovascular: Reports: no symptoms Gastrointestinal/Abdominal: Denies: nausea, vomiting, diarrhea Genitourinary: Reports: no symptoms Psychiatric: Denies: depression Skin: Denies: rash Musculoskeletal: Denies: pain Allergies: Uncoded Allergies: VITAMIN B (Allergy, Unknown, 04/11/20) Objective Last 24 Hour Vital Signs Date Time Temp Pulse Resp B/P (MAP) Pulse Ox O2 Delivery O2 Flow Rate FiO2 04/17/20 09:24 78 166/104 04/17/20 09:24 78 166/104 04/17/20 09:00 Room Air Room Air 04/17/20 08:00 97.4 95 20 160/100 (120) 97 04/17/20 08:00 89 04/17/20 05:42 166/104 04/17/20 04:00 97.1 93 20 166/104 (124) 95 04/17/20 04:00 78 04/17/20 00:00 83 20 132/84 (100) 04/17/20 00:00 78 04/16/20 22:31 131/93 04/16/20 21:12 98 141/81 04/16/20 21:00 Room Air Room Air 04/16/20 20:00 98.1 98 20 141/81 (101) 95 04/16/20 20:00 109 04/16/20 16:00 106 04/16/20 16:00 97.8 107 20 135/79 (97) 93 04/16/20 14:11 127/94 04/16/20 12:00 96.4 100 20 167/91 (116) 95 04/16/20 12:00 99 Intake and Output 04/16/20 04/17/20 19:00 07:00 Intake Total 390 ml 180 ml Output Total 900 ml 300 ml Balance -510 ml -120 ml Intake Oral 390 ml 180 ml Output Urine Total 900 ml 300 ml # Bowel Movements 3 2 General Appearance: no acute distress HEENT: normocephalic, mucous membranes moist Respiratory: chest wall non-tender, lungs clear Cardiovascular: normal peripheral pulses Abdomen: normal bowel sounds, soft, non tender Extremities: no cyanosis, no edema Laboratory Tests 04/17/20 09:50: White Blood Count 5.2, Red Blood Count 5.84, Hemoglobin 16.5, Hematocrit 49.0, Mean Corpuscular Volume 84, Mean Corpuscular Hemoglobin 28.2, Mean Corpuscular Hemoglobin Concent 33.6, Red Cell Distribution Width 15.6H, Platelet Count 283, Mean Platelet Volume 6.6, Neutrophils (%) (Auto) 79.2H, Lymphocytes (%) (Auto) 11.1L, Monocytes (%) (Auto) 8.7, Eosinophils (%) (Auto) 0.1, Basophils (%) (Auto) 0.9, Sodium Level [Pending], Potassium Level [Pending], Chloride Level [Pending], Carbon Dioxide Level 24, Blood Urea Nitrogen 44H, Creatinine 2.0H, Estimat Glomerular Filtration Rate 39.6, Glucose Level 94, Calcium Level 9.6, Magnesium Level 1.9, Troponin I 0.012, Pro-B-Type Natriuretic Peptide [Pending] Current Medications Medications (Trade) Dose Ordered Sig/Lewis Route PRN Reason Start Time Stop Time Status Last Admin Dose Admin Acetaminophen (Tylenol) 650 mg Q4H PRN ORAL pain 1-3 04/11/20 18:00 05/11/20 17:59 04/12/20 18:10 Acetaminophen/ Hydrocodone Bitart ([place] 10/325) 1 tab BID PRN ORAL pain 4-10 04/14/20 09:00 04/21/20 08:59 04/16/20 00:41 Albuterol Sulfate (Proventil MDI) 2 puff Q4H PRN INH Shortness of Breath 04/16/20 13:45 07/15/20 13:44 Amlodipine Besylate (Norvasc) 10 mg DAILY ORAL 04/14/20 09:30 05/14/20 09:29 04/17/20 09:24 Aspirin (Ecotrin) 81 mg DAILY ORAL 04/15/20 09:00 05/30/20 08:59 04/17/20 09:24 Dexamethasone Sodium Phosphate (Decadron 10mg/ ml Inj) 6 mg DAILY IV 04/13/20 09:00 04/22/20 09:01 04/16/20 08:12 Dextrose (Dextrose 50%) 25 ml Q30M PRN IV Hypoglycemia 04/11/20 18:00 07/10/20 17:59 Dextrose (Dextrose 50%) 50 ml Q30M PRN IV Hypoglycemia 04/11/20 18:00 07/10/20 17:59 Docusate Sodium (Colace) 100 mg EVERY 12 HOURS ORAL 04/11/20 21:00 05/11/20 20:59 04/17/20 09:24 Famotidine (Pepcid) 40 mg DAILY ORAL 04/12/20 09:00 07/11/20 08:59 04/17/20 09:25 Heparin Sodium (Porcine) (Heparin 5000 units/ml) 5,000 units EVERY 12 HOURS SUBQ 04/11/20 18:07 05/26/20 18:06 04/16/20 21:13 Hydralazine HCl (Apresoline) 10 mg EVERY 6 HOURS PRN IV For High Blood Pressure 04/14/20 09:00 07/13/20 08:59 04/16/20 11:23 Hydralazine HCl (Apresoline) 50 mg EVERY 8 HOURS ORAL 04/14/20 11:15 07/13/20 11:14 04/17/20 05:42 Linezolid (Zyvox) 600 mg EVERY 12 HOURS ORAL 04/12/20 21:00 04/17/20 20:59 04/17/20 09:25 Meropenem 500 mg/ Sodium Chloride 50 ml @ 100 mls/hr Q12HR IVPB 04/14/20 21:00 04/19/20 20:59 04/16/20 08:13 Metoprolol Tartrate (Lopressor) 25 mg Q12HR ORAL 04/16/20 21:00 07/15/20 20:59 04/17/20 09:24 Sodium Chloride 1,000 ml @ 50 mls/hr Q20H IV 04/11/20 19:00 05/11/20 18:59 04/16/20 18:11 Assessment/Plan Assessment/Plan 1. COVID-19 pneumonia. - Continue Decadron. Switch to PO - cont broad-spectrum Abx - CXR 04/14/2020 New small left mid to lower lung patchy opacity - CXR 04/16/2020 slightly increased opacities in the L lower lung and R mid a nd lower lung 2. Renal failure. - Renal US Negative for hydronephrosis - 04/16/2020 BUN and Cr improving - per renal 3. History of COPD. - Saturating 95% on 2 lpm NC; now on RA - albuterol MDI adebrittny 4. Severe chronic leg/bag pain - per pain management - Currently on 10 mg [place] BID prn pain; reports chronic use 5. DVT prophylaxis - On Lovenox 6. Hyperkalemia - K 5.3 -> 4.1 - s/p Kayexalate - Lasix added 7. HTN - On Amlodipine - On Hydralazine prn - 2D echo , per cardio - added diuretics continue home medications. Will dc back to SNF Derrek Nava MD Apr 17, 2020 11:54
[2020-04-17] MEDS ORDERED: NORCO 10-325 T1 EACH ORAL (11:56)
[2020-04-17] MEDS ORDERED: DECADRON6 MG PO (11:56)
[2020-04-17] MEDS ORDERED: ZYVOX600 MG ORAL (11:56)
[2020-04-17] MEDS ORDERED: FUROSEMIDE40 MG ORAL (11:56)
[2020-04-17 12:03] VITALS: BP 148/82
--- NOTE | 2020-04-17 13:15 | Nephrology Progress Note ---
Assessment/Plan Plan #DEYSI on CKD- improving #COVID pneumonia #hypoxemic resp failure #leukocytosis #HTN- accelerated - check renal US-> no hydro, medical renal disease - add amlodipine 10mg daily - DC IVF - lasix oral 40mg daily - continue antibiotics - zosyn and linezolid - monitor BMP, mag and phos - strict I&Os - avoid nephrotoxins - monitor weights Time spent 65 min Subjective ROS Limited/Unobtainable: No Constitutional: Reports: weakness HEENT: Denies: no symptoms, eye pain, blurred vision, tearing, double vision, ear pain, ear discharge, nose pain, nose congestion, throat pain, throat swelling, mouth pain, mouth swelling, other Genitourinary: Denies: no symptoms, burning, discharge, frequency, flank pain, hematuria, incontinence, pain, urgency, other Neurologic/Psychiatric: Denies: no symptoms, anxiety, depressed, emotional problems, headache, numbness, paresthesia, pre-existing deficit, seizure, tingling, tremors, weakness, other Subjective Cr downtrending breathing stable DC IVF on lasix 40 oral daily renal US: Impression: Negative for hydronephrosis Echogenic kidneys bilaterally, associated with medical renal disease Incidental finding bilateral renal cysts. Objective Objective Last 24 Hour Vital Signs Date Time Temp Pulse Resp B/P (MAP) Pulse Ox O2 Delivery O2 Flow Rate FiO2 04/17/20 12:04 78 04/17/20 12:03 98.6 80 19 148/82 (104) 95 04/17/20 09:24 78 166/104 04/17/20 09:24 78 166/104 04/17/20 09:00 Room Air Room Air 04/17/20 08:00 97.4 95 20 160/100 (120) 97 04/17/20 08:00 89 04/17/20 05:42 166/104 04/17/20 04:00 97.1 93 20 166/104 (124) 95 04/17/20 04:00 78 04/17/20 00:00 83 20 132/84 (100) 04/17/20 00:00 78 04/16/20 22:31 131/93 04/16/20 21:12 98 141/81 04/16/20 21:00 Room Air Room Air 04/16/20 20:00 98.1 98 20 141/81 (101) 95 04/16/20 20:00 109 04/16/20 16:00 106 04/16/20 16:00 97.8 107 20 135/79 (97) 93 04/16/20 14:11 127/94 Intake and Output 04/16/20 04/17/20 19:00 07:00 Intake Total 390 ml 180 ml Output Total 900 ml 300 ml Balance -510 ml -120 ml Intake Oral 390 ml 180 ml Output Urine Total 900 ml 300 ml # Bowel Movements 3 2 Laboratory Tests 04/17/20 09:50: White Blood Count 5.2, Red Blood Count 5.84, Hemoglobin 16.5, Hematocrit 49.0, Mean Corpuscular Volume 84, Mean Corpuscular Hemoglobin 28.2, Mean Corpuscular Hemoglobin Concent 33.6, Red Cell Distribution Width 15.6H, Platelet Count 283, Mean Platelet Volume 6.6, Neutrophils (%) (Auto) 79.2H, Lymphocytes (%) (Auto) 11.1L, Monocytes (%) (Auto) 8.7, Eosinophils (%) (Auto) 0.1, Basophils (%) (Auto) 0.9, Sodium Level 142, Potassium Level 4.2, Chloride Level 106, Carbon Dioxide Level 24, Blood Urea Nitrogen 44H, Creatinine 2.0H, Estimat Glomerular Filtration Rate 39.6, Glucose Level 94, Calcium Level 9.6, Magnesium Level 1.9, Troponin I 0.012, Pro-B-Type Natriuretic Peptide 4951H Height (Feet): 6 Height (Inches): 1.00 Weight (Pounds): 132 Rocco Messina M.D. Apr 17, 2020 13:15
[2020-04-17 16:00] VITALS: BP 143/81
[2020-04-17 20:00] VITALS: BP 148/95
[2020-04-17] MEDS: HYDROcodone/Acetamin 10/325 tab ORAL PRN (22:29)
[2020-04-18] VITALS: BP 116/75
[2020-04-18 04:00] VITALS: BP 160/80
[2020-04-18] MEDS: HYDROcodone/Acetamin 10/325 tab ORAL PRN (05:16)
[2020-04-18] MEDS: HydrALAZINE 25mg tab ORAL SCH (05:16)
[2020-04-18 08:00] VITALS: BP 137/68
--- NOTE | 2020-04-18 08:36 | General Progress Note ---
Subjective Date patient seen: Apr 18, 2020 Time patient seen: 07:00 - am Allergies: Uncoded Allergies: VITAMIN B (Allergy, Unknown, 04/11/20) Subjective HISTORY OF PRESENT ILLNESS: This is a 74-year-old male, who is being seen on the telemetry floor of [facility]. Patient showing no signs of pain or distress. Pain has been tolerated on the [place] 2 doses in the last 24hrs. No new complaints at this time. REVIEW OF SYSTEMS: Denies rash, fever, chills, sweating, dizziness, drowsiness, blurred vision, sore throat, change in his weight. No nausea, vomiting, diarrhea, or blood in the stool or urine. No dysuria. Objective Last 24 Hour Vital Signs Date Time Temp Pulse Resp B/P (MAP) Pulse Ox O2 Delivery O2 Flow Rate FiO2 04/18/20 05:16 160/80 04/18/20 04:00 98.1 83 16 160/80 (106) 97 04/18/20 04:00 81 04/18/20 00:00 97.9 75 16 116/75 (89) 97 04/18/20 00:00 67 04/17/20 22:14 148/95 04/17/20 22:14 92 148/95 04/17/20 21:00 Room Air Room Air 04/17/20 20:00 104 04/17/20 20:00 98.1 92 18 148/95 (112) 97 04/17/20 16:00 97.1 68 18 143/81 (101) 97 04/17/20 16:00 95 04/17/20 14:01 148/82 04/17/20 12:04 78 04/17/20 12:03 98.6 80 19 148/82 (104) 95 04/17/20 09:24 78 166/104 04/17/20 09:24 78 166/104 04/17/20 09:00 Room Air Room Air Intake and Output 04/17/20 04/18/20 19:00 07:00 Intake Total 240 ml Balance 240 ml Intake Oral 240 ml # Voids 2 # Bowel Movements 1 1 Laboratory Tests 04/17/20 09:50: White Blood Count 5.2, Red Blood Count 5.84, Hemoglobin 16.5, Hematocrit 49.0, Mean Corpuscular Volume 84, Mean Corpuscular Hemoglobin 28.2, Mean Corpuscular Hemoglobin Concent 33.6, Red Cell Distribution Width 15.6H, Platelet Count 283, Mean Platelet Volume 6.6, Neutrophils (%) (Auto) 79.2H, Lymphocytes (%) (Auto) 11.1L, Monocytes (%) (Auto) 8.7, Eosinophils (%) (Auto) 0.1, Basophils (%) (Auto) 0.9, Sodium Level 142, Potassium Level 4.2, Chloride Level 106, Carbon Dioxide Level 24, Blood Urea Nitrogen 44H, Creatinine 2.0H, Estimat Glomerular Filtration Rate 39.6, Glucose Level 94, Calcium Level 9.6, Magnesium Level 1.9, Troponin I 0.012, Pro-B-Type Natriuretic Peptide 4951H Height (Feet): 6 Height (Inches): 1.00 Weight (Pounds): 132 Objective PHYSICAL EXAMINATION: GENERAL: Alert, awake, and oriented. LUNGS: Decreased breath sounds bilaterally. HEART: S1 and S2, regular. ABDOMEN: Soft and nontender. EXTREMITIES: No cyanosis. No clubbing. NEURO: No changes. Assessment/Plan Assessment/Plan: (1) Lumbar DDD (2) Lumbar Spondylosis (3) Lumbar Radiculopathy (4) Covid 19+ Patient to be continued on [place] as needed. D/w Dr. Mendez and he concurred. Nicholas Escobedo Apr 18, 2020 08:36
--- NOTE | 2020-04-18 08:45 | Nephrology Progress Note ---
Assessment/Plan Plan #DEYSI on CKD- improving #COVID pneumonia #hypoxemic resp failure #leukocytosis #HTN- accelerated - check renal US-> no hydro, medical renal disease - add amlodipine 10mg daily - DC IVF - lasix oral 40mg daily - hydralazine 100mg TID - metop 25mg BID - continue antibiotics - zosyn and linezolid - monitor BMP, mag and phos - strict I&Os - avoid nephrotoxins - monitor weights Time spent 65 min Subjective ROS Limited/Unobtainable: No Constitutional: Reports: weakness HEENT: Denies: no symptoms, eye pain, blurred vision, tearing, double vision, ear pain, ear discharge, nose pain, nose congestion, throat pain, throat swel ling, mouth pain, mouth swelling, other Genitourinary: Denies: no symptoms, burning, discharge, frequency, flank pain, hematuria, incontinence, pain, urgency, other Neurologic/Psychiatric: Denies: no symptoms, anxiety, depressed, emotional problems, headache, numbness, paresthesia, pre-existing deficit, seizure, tingling, tremors, weakness, other Subjective Cr downtrending breathing stable DC IVF on lasix 40 oral daily hypertensive renal US: Impression: Negative for hydronephrosis Echogenic kidneys bilaterally, associated with medical renal disease Incidental finding bilateral renal cysts. Objective Objective Last 24 Hour Vital Signs Date Time Temp Pulse Resp B/P (MAP) Pulse Ox O2 Delivery O2 Flow Rate FiO2 04/18/20 05:16 160/80 04/18/20 04:00 98.1 83 16 160/80 (106) 97 04/18/20 04:00 81 04/18/20 00:00 97.9 75 16 116/75 (89) 97 04/18/20 00:00 67 04/17/20 22:14 148/95 04/17/20 22:14 92 148/95 04/17/20 21:00 Room Air Room Air 04/17/20 20:00 104 04/17/20 20:00 98.1 92 18 148/95 (112) 97 04/17/20 16:00 97.1 68 18 143/81 (101) 97 04/17/20 16:00 95 04/17/20 14:01 148/82 04/17/20 12:04 78 04/17/20 12:03 98.6 80 19 148/82 (104) 95 04/17/20 09:24 78 166/104 04/17/20 09:24 78 166/104 04/17/20 09:00 Room Air Room Air Intake and Output 04/17/20 04/18/20 19:00 07:00 Intake Total 240 ml Balance 240 ml Intake Oral 240 ml # Voids 2 # Bowel Movements 1 1 Laboratory Tests 04/17/20 09:50: White Blood Count 5.2, Red Blood Count 5.84, Hemoglobin 16.5, Hematocrit 49.0, Mean Corpuscular Volume 84, Mean Corpuscular Hemoglobin 28.2, Mean Corpuscular Hemoglobin Concent 33.6, Red Cell Distribution Width 15.6H, Platelet Count 283, Mean Platelet Volume 6.6, Neutrophils (%) (Auto) 79.2H, Lymphocytes (%) (Auto) 11.1L, Monocytes (%) (Auto) 8.7, Eosinophils (%) (Auto) 0.1, Basophils (%) (Auto) 0.9, Sodium Level 142, Potassium Level 4.2, Chloride Level 106, Carbon Dioxide Level 24, Blood Urea Nitrogen 44H, Creatinine 2.0H, Estimat Glomerular Filtration Rate 39.6, Glucose Level 94, Calcium Level 9.6, Magnesium Level 1.9, Troponin I 0.012, Pro-B-Type Natriuretic Peptide 4951H Height (Feet): 6 Height (Inches): 1.00 Weight (Pounds): 132 Rocco Messina M.D. Apr 18, 2020 08:45
[2020-04-18] MEDS: Docusate 100mg cap ORAL SCH ×2 (09:14→21:00)
[2020-04-18] MEDS: Aspirin EC 81mg tab ORAL SCH (09:14)
[2020-04-18] MEDS: dexAMETHasone 10mg/ml Inj IV SCH (09:15)
[2020-04-18] MEDS ORDERED: HydrALAZINE 25mg tab ORAL SCH (09:15)
[2020-04-18] MEDS: Heparin 5000 units/ml inj SUBQ SCH ×2 (09:33→21:00)
[2020-04-18 10:02] LABS: CALCIUM 9.3 MG/DL (8.5-10.1); CREATININE 2.1 MG/DL (0.55-1.30); PHOSPHORUS 3.2 MG/DL (2.5-4.9); POTASSIUM 3.9 MMOL/L (3.5-5.1)
--- NOTE | 2020-04-18 10:58 | Cardiology Progress Note ---
Assessment/Plan Status: stable Assessment/Plan 1. COVID-19 viral PNA pt in isolation, on decadron and remdesivir per ID CXR + interstitial disease 2. HTN - on multiple antihypertensives, improved 3. CAD s/p PCI and stent well preserved LV function, EF 65% ASA daily 3. HFpEF, chronic diastolic HF with preserved EF Lasix for diuresis IV fluids dc'd by nephro 3. COPD with exacerbation 4. DMII - insulin dependent 5. UTI; on abx per ID 6. DEYSI on CKD Lasix PO for diuresis, breathing easier today, pt denies chest pain. Stable from cardiology point of view for discharge on medical therapy. Subjective ROS Limited/Unobtainable: No Cardiovascular: Reports: no symptoms Respiratory: Reports: shortness of breath Gastrointestinal/Abdominal: Reports: no symptoms Subjective Breathing a little better today, on O2 NC. Denies chest pain. Objective Last 24 Hour Vital Signs Date Time Temp Pulse Resp B/P (MAP) Pulse Ox O2 Delivery O2 Flow Rate FiO2 04/18/20 10:42 137/68 04/18/20 09:15 79 137/68 04/18/20 09:14 79 137/68 04/18/20 08:49 Room Air Room Air 04/18/20 08:00 78 04/18/20 08:00 97.7 79 17 137/68 (91) 97 04/18/20 05:16 160/80 04/18/20 04:00 98.1 83 16 160/80 (106) 97 04/18/20 04:00 81 04/18/20 00:00 97.9 75 16 116/75 (89) 97 04/18/20 00:00 67 04/17/20 22:14 148/95 04/17/20 22:14 92 148/95 04/17/20 21:00 Room Air Room Air 04/17/20 20:00 104 04/17/20 20:00 98.1 92 18 148/95 (112) 97 04/17/20 16:00 97.1 68 18 143/81 (101) 97 04/17/20 16:00 95 04/17/20 14:01 148/82 04/17/20 12:04 78 04/17/20 12:03 98.6 80 19 148/82 (104) 95 EENT: PERRL/EOMI Neck: supple, no JVD Rhythm: NSR Cardiovascular: normal rate, regular rhythm Respiratory/Chest: no respiratory distress Extremities: no swelling Neurologic: oriented x 3 Intake and Output0 04/17/20 04/18/20 19:00 07:00 Intake Total 240 ml Balance 240 ml Intake Oral 240 ml # Voids 2 # Bowel Movements 1 1 Laboratory Tests Test 04/18/20 09:30 Sodium Level 139 MMOL/L (136-145) Potassium Level 3.9 MMOL/L (3.5-5.1) Chloride Level 107 MMOL/L (98-107) Carbon Dioxide Level 24 MMOL/L (21-32) Anion Gap 8 mmol/L (5-15) Blood Urea Nitrogen 44 mg/dL (7-18) H Creatinine 2.1 MG/DL (0.55-1.30) H Estimat Glomerular Filtration Rate 37.5 mL/min (>60) Glucose Level 123 MG/DL (74-106) H Calcium Level 9.3 MG/DL (8.5-10.1) Phosphorus Level 3.2 MG/DL (2.5-4.9) Magnesium Level 2.0 MG/DL (1.8-2.4) Microbiology Date/Time Source Procedure Growth Status 04/17/20 13:37 Nasopharynx SARS-CoV-2 RdRp Gene Assay - Final Complete Sandra Monique PA-C Apr 18, 2020 10:58
[2020-04-18] MEDS: HydrALAZINE 50mg tab ORAL SCH ×2 (14:38→21:20)
--- NOTE | 2020-04-18 15:00 | Pulmonology Progress Note ---
Subjective ROS Limited/Unobtainable: No Interval Events: none new; waiting on arrangement for transportation to his assisted living Constitutional: Denies: fever HEENT: Repors: no symptoms Respiratory: Reports: shortness of breath Cardiovascular: Reports: no symptoms Gastrointestinal/Abdominal: Denies: nausea, vomiting, diarrhea Genitourinary: Reports: no symptoms Psychiatric: Denies: depression Skin: Denies: rash Musculoskeletal: Denies: pain Allergies: Uncoded Allergies: VITAMIN B (Allergy, Unknown, 04/11/20) Subjective pt reports severe chronic leg/back pain despite am dose of Bishop; pain scale 7/10 Objective Last 24 Hour Vital Signs Date Time Temp Pulse Resp B/P (MAP) Pulse Ox O2 Delivery O2 Flow Rate FiO2 04/18/20 14:38 137/68 04/18/20 12:00 83 04/18/20 10:42 137/68 04/18/20 09:15 79 137/68 04/18/20 09:14 79 137/68 04/18/20 08:49 Room Air Room Air 04/18/20 08:00 78 04/18/20 08:00 97.7 79 17 137/68 (91) 97 04/18/20 05:16 160/80 04/18/20 04:00 98.1 83 16 160/80 (106) 97 04/18/20 04:00 81 04/18/20 00:00 97.9 75 16 116/75 (89) 97 04/18/20 00:00 67 04/17/20 22:14 148/95 04/17/20 22:14 92 148/95 04/17/20 21:00 Room Air Room Air 04/17/20 20:00 104 04/17/20 20:00 98.1 92 18 148/95 (112) 97 04/17/20 16:00 97.1 68 18 143/81 (101) 97 04/17/20 16:00 95 Intake and Output 04/17/20 04/18/20 19:00 07:00 Intake Total 240 ml Balance 240 ml Intake Oral 240 ml # Voids 2 # Bowel Movements 1 1 Objective pt sitting up in bed; NAD General Appearance: no acute distress HEENT: normocephalic, mucous membranes moist Respiratory: chest wall non-tender, lungs clear Cardiovascular: normal peripheral pulses Abdomen: normal bowel sounds, soft, non tender Extremities: no cyanosis, no edema Microbiology Date/Time Source Procedure Growth Status 04/17/20 13:37 Nasopharynx SARS-CoV-2 RdRp Gene Assay - Final Complete Laboratory Tests 04/18/20 09:30: Sodium Level 139, Potassium Level 3.9, Chloride Level 107, Carbon Dioxide Level 24, Anion Gap 8, Blood Urea Nitrogen 44H, Creatinine 2.1H, Estimat Glomerular Filtration Rate 37.5, Glucose Level 123H, Calcium Level 9.3, Phosphorus Level 3.2, Magnesium Level 2.0 Current Medications Medications (Trade) Dose Ordered Sig/Lewis Route PRN Reason Start Time Stop Time Status Last Admin Dose Admin Acetaminophen (Tylenol) 650 mg Q4H PRN ORAL pain 1-3 04/11/20 18:00 05/11/20 17:59 04/12/20 18:10 Acetaminophen/ Hydrocodone Bitart ([place] 10/325) 1 tab BID PRN ORAL pain 4-10 04/14/20 09:00 04/21/20 08:59 04/18/20 05:16 Albuterol Sulfate (Proventil MDI) 2 puff Q4H PRN INH Shortness of Breath 04/16/20 13:45 07/15/20 13:44 Amlodipine Besylate (Norvasc) 10 mg DAILY ORAL 04/14/20 09:30 05/14/20 09:29 04/18/20 09:14 Aspirin (Ecotrin) 81 mg DAILY ORAL 04/15/20 09:00 05/30/20 08:59 04/18/20 09:14 Dexamethasone Sodium Phosphate (Decadron 10mg/ ml Inj) 6 mg DAILY IV 04/13/20 09:00 04/22/20 09:01 04/18/20 09:15 Dextrose (Dextrose 50%) 25 ml Q30M PRN IV Hypoglycemia 04/11/20 18:00 07/10/20 17:59 Dextrose (Dextrose 50%) 50 ml Q30M PRN IV Hypoglycemia 04/11/20 18:00 07/10/20 17:59 Docusate Sodium (Colace) 100 mg EVERY 12 HOURS ORAL 04/11/20 21:00 05/11/20 20:59 04/18/20 09:14 Famotidine (Pepcid) 40 mg DAILY ORAL 04/12/20 09:00 07/11/20 08:59 04/18/20 09:14 Heparin Sodium (Porcine) (Heparin 5000 units/ml) 5,000 units EVERY 12 HOURS SUBQ 04/11/20 18:07 05/26/20 18:06 04/18/20 09:33 Hydralazine HCl (Apresoline) 10 mg EVERY 6 HOURS PRN IV For High Blood Pressure 04/14/20 09:00 07/13/20 08:59 04/16/20 11:23 Hydralazine HCl (Apresoline) 100 mg EVERY 8 HOURS ORAL 04/18/20 14:00 07/13/20 13:59 04/18/20 14:38 Meropenem 500 mg/ Sodium Chloride 50 ml @ 100 mls/hr Q12HR IVPB 04/14/20 21:00 04/19/20 20:59 04/16/20 08:13 Metoprolol Tartrate (Lopressor) 25 mg Q12HR ORAL 04/16/20 21:00 07/15/20 20:59 04/18/20 09:15 Assessment/Plan Assessment/Plan 11. COVID-19 pneumonia. - Continue Decadron. Switch to PO - cont broad-spectrum Abx - CXR 04/14/2020 New small left mid to lower lung patchy opacity - CXR 04/16/2020 slightly increased opacities in the L lower lung and R mid and lower lung 2. Renal failure. - Renal US Negative for hydronephrosis - 04/16/2020 BUN and Cr improving - per renal 3. History of COPD. - Saturating 95% on 2 lpm NC; now on RA - albuterol MDI added 4. Severe chronic leg/bag pain - per pain management - Currently on 10 mg Bishop BID prn pain; reports chronic use 5. DVT prophylaxis - On Lovenox 6. Hyperkalemia - K 5.3 -> 4.1 - s/p Kayexalate - Lasix added 7. HTN - On Amlodipine - On Hydralazine prn - 2D echo , per cardio - added diuretics continue home medications. 04/17/2020 Covid-19 test neg; Will dc back to original place of assisted living in [place] - dc was planned for today; still awaiting on arrangements from the assisted living for transportation The history of Willy Arnold has been reviewed and management options for him have been examined and discussed by Derrek Nava. I have personally examined and interviewed the patient. Miguel Duarte Apr 18, 2020 15:00 Derrek Nava MD Apr 18, 2020 16:02
[2020-04-18 16:00] VITALS: BP 132/74
[2020-04-18 20:00] VITALS: BP 127/72
--- NOTE | 2020-04-18 22:41 | Infectious Diseases Prog Note ---
Assessment/Plan Assessment/Plan ASSESSMENT AND PLAN: 1. esbl e.coli uti, covid-19 infection, pneumonia, sepsis, fevers, leukocytosis - meropenem - day # 7 abx - dexamethasone - day # 7 - monitor clinically, hypoxia, labs and chest x-ray as indicated - clinically improved 2. Renal failure. 3. COVID-19 infection history. 4. The patient is anemic. 5. No history of diabetes and hypertension. 6. Renal failure. Treatment per Renal and Medicine. 7. Allergy to vitamin D. 8. Social history is negative. 9. Family history is noncontributory. 10. MAR is noted. 11. Case was discussed with RN. 12. COVID isolation. 13. Case was discussed with Dr. Nava. Subjective Constitutional: Reports: fatigue; Denies: fever HEENT: Reports: congestion - less Respiratory: Reports: shortness of breath - less Cardiovascular: Denies: chest pain Gastrointestinal/Abdominal: Denies: nausea, vomiting, diarrhea Genitourinary: Reports: other - no contreras Neurologic: Denies: headache Psychiatric: Denies: depression Skin: Denies: rash Hematologic: Denies: bleeding Musculoskeletal: Denies: pain Allergies: Uncoded Allergies: VITAMIN B (Allergy, Unknown, 04/11/20) Objective Last 24 Hour Vital Signs Date Time Temp Pulse Resp B/P (MAP) Pulse Ox O2 Delivery O2 Flow Rate FiO2 04/18/20 21:20 127/72 04/18/20 21:20 104 127/72 04/18/20 16:00 97.7 79 17 132/74 (93) 97 04/18/20 14:38 137/68 04/18/20 12:00 83 04/18/20 10:42 137/68 04/18/20 09:15 79 137/68 04/18/20 09:14 79 137/68 04/18/20 08:49 Room Air Room Air 04/18/20 08:00 78 04/18/20 08:00 97.7 79 17 137/68 (91) 97 04/18/20 05:16 160/80 04/18/20 04:00 98.1 83 16 160/80 (106) 97 04/18/20 04:00 81 04/18/20 00:00 97.9 75 16 116/75 (89) 97 04/18/20 00:00 67 Height (Feet): 6 Height (Inches): 1.00 Weight (Pounds): 132 General Appearance: no acute distress HEENT: normocephalic, atraumatic, anicteric, mucous membranes moist Respiratory/Chest: crackles/rales, rhonchi - bilaterally Cardiovascular: normal rate, regular rhythm, no gallop/murmur, no JVD Abdomen: normal bowel sounds, soft, non tender, no organomegaly, non distended Genitourinary: other - no contreras Extremities: no cyanosis Skin: no rash Neurologic/Psychiatric: pickling grader II-XII grossly normal, alert, oriented x 3, responsive Lymphatic: no neck adenopathy Musculoskeletal: no effusion Chest -x -ray - 04/14/20 - Indication: Shortness of breath Technique: One view of the chest Comparison: 04/11/2020 Findings: Interim development of small focal patchy opacity at the left mid and lower lung. There is some scarring or atelectasis in the left mid and upper lung. Infiltrate in the right upper lobe, hyperinflation of the right lower lobe is again demonstrated. Left sided pleural thickening versus fluid is unchanged. Impression: New small left mid to lower lung patchy opacity, possibly a small focus of consolidation. Otherwise stable findings as described Chest x-ray - 04/16/20 - IMPRESSION: 1. Hyperinflation of the lungs with probable emphysematous changes again noted, prominent in the mid and lower lungs. 2. Similar interstitial opacities in the upper lungs may represent chronic lung changes/scarring versus infectious/inflammatory process. 3. Slightly increased opacities in the left lower lung and right mid and lower lung may represent an infectious/inflammatory process. Microbiology Date/Time Source Procedure Growth Status 04/17/20 13:37 Nasopharynx SARS-CoV-2 RdRp Gene Assay - Final Complete 04/12/20 14:30 Urine,Clean Catch Urine Culture - Final Escherichia Coli - Esbl Complete 04/11/20 12:05 Blood Blood Culture - Final NO GROWTH AFTER 5 DAYS Complete Microbiology Date/Time Source Procedure Growth Status 04/17/20 13:37 Nasopharynx SARS-CoV-2 RdRp Gene Assay - Final Complete Labs Test 04/17/20 09:50 04/18/20 09:30 White Blood Count 5.2 K/UL (4.8-10.8) Red Blood Count 5.84 M/UL (4.70-6.10) Hemoglobin 16.5 G/DL (14.2-18.0) Hematocrit 49.0 % (42.0-52.0) Mean Corpuscular Volume 84 FL (80-99) Mean Corpuscular Hemoglobin 28.2 PG (27.0-31.0) Mean Corpuscular Hemoglobin Concent 33.6 G/DL (32.0-36.0) Red Cell Distribution Width 15.6 % (11.6-14.8) Platelet Count 283 K/UL (150-450) Mean Platelet Volume 6.6 FL (6.5-10.1) Neutrophils (%) (Auto) 79.2 % (45.0-75.0) Lymphocytes (%) (Auto) 11.1 % (20.0-45.0) Monocytes (%) (Auto) 8.7 % (1.0-10.0) Eosinophils (%) (Auto) 0.1 % (0.0-3.0) Basophils (%) (Auto) 0.9 % (0.0-2.0) Sodium Level 142 MMOL/L (136-145) 139 MMOL/L (136-145) Potassium Level 4.2 MMOL/L (3.5-5.1) 3.9 MMOL/L (3.5-5.1) Chloride Level 106 MMOL/L (98-107) 107 MMOL/L (98-107) Carbon Dioxide Level 24 MMOL/L (21-32) 24 MMOL/L (21-32) Blood Urea Nitrogen 44 mg/dL (7-18) 44 mg/dL (7-18) Creatinine 2.0 MG/DL (0.55-1.30) 2.1 MG/DL (0.55-1.30) Estimat Glomerular Filtration Rate 39.6 mL/min (>60) 37.5 mL/min (>60) Glucose Level 94 MG/DL (74-106) 123 MG/DL (74-106) Calcium Level 9.6 MG/DL (8.5-10.1) 9.3 MG/DL (8.5-10.1) Magnesium Level 1.9 MG/DL (1.8-2.4) 2.0 MG/DL (1.8-2.4) Troponin I 0.012 ng/mL (0.000-0.056) Pro-B-Type Natriuretic Peptide 4951 pg/mL (0-125) Anion Gap 8 mmol/L (5-15) Phosphorus Level 3.2 MG/DL (2.5-4.9) Laboratory Tests Test 04/18/20 09:30 Sodium Level 139 MMOL/L (136-145) Potassium Level 3.9 MMOL/L (3.5-5.1) Chloride Level 107 MMOL/L (98-107) Carbon Dioxide Level 24 MMOL/L (21-32) Anion Gap 8 mmol/L (5-15) Blood Urea Nitrogen 44 mg/dL (7-18) H Creatinine 2.1 MG/DL (0.55-1.30) H Estimat Glomerular Filtration Rate 37.5 mL/min (>60) Glucose Level 123 MG/DL (74-106) H Calcium Level 9.3 MG/DL (8.5-10.1) Phosphorus Level 3.2 MG/DL (2.5-4.9) Magnesium Level 2.0 MG/DL (1.8-2.4) Current Medications Medications (Trade) Dose Ordered Sig/Lewis Route PRN Reason Start Time Stop Time Status Last Admin Dose Admin Acetaminophen (Tylenol) 650 mg Q4H PRN ORAL pain 1-3 04/11/20 18:00 05/11/20 17:59 04/12/20 18:10 Acetaminophen/ Hydrocodone Bitart ([place] 10/325) 1 tab BID PRN ORAL pain 4-10 04/14/20 09:00 04/21/20 08:59 04/18/20 05:16 Albuterol Sulfate (Proventil MDI) 2 puff Q4H PRN INH Shortness of Breath 04/16/20 13:45 07/15/20 13:44 Amlodipine Besylate (Norvasc) 10 mg DAILY ORAL 04/14/20 09:30 05/14/20 09:29 04/18/20 09:14 Aspirin (Ecotrin) 81 mg DAILY ORAL 04/15/20 09:00 05/30/20 08:59 04/18/20 09:14 Dexamethasone Sodium Phosphate (Decadron 10mg/ ml Inj) 6 mg DAILY IV 04/13/20 09:00 04/22/20 09:01 04/18/20 09:15 Dextrose (Dextrose 50%) 25 ml Q30M PRN IV Hypoglycemia 04/11/20 18:00 07/10/20 17:59 Dextrose (Dextrose 50%) 50 ml Q30M PRN IV Hypoglycemia 04/11/20 18:00 07/10/20 17:59 Docusate Sodium (Colace) 100 mg EVERY 12 HOURS ORAL 04/11/20 21:00 05/11/20 20:59 04/18/20 09:14 Famotidine (Pepcid) 40 mg DAILY ORAL 04/12/20 09:00 07/11/20 08:59 04/18/20 09:14 Heparin Sodium (Porcine) (Heparin 5000 units/ml) 5,000 units EVERY 12 HOURS SUBQ 04/11/20 18:07 05/26/20 18:06 04/18/20 09:33 Hydralazine HCl (Apresoline) 10 mg EVERY 6 HOURS PRN IV For High Blood Pressure 04/14/20 09:00 07/13/20 08:59 04/16/20 11:23 Hydralazine HCl (Apresoline) 100 mg EVERY 8 HOURS ORAL 04/18/20 14:00 07/13/20 13:59 04/18/20 21:20 Meropenem 500 mg/ Sodium Chloride 50 ml @ 100 mls/hr Q12HR IVPB 04/14/20 21:00 04/19/20 20:59 04/16/20 08:13 Metoprolol Tartrate (Lopressor) 25 mg Q12HR ORAL 04/16/20 21:00 07/15/20 20:59 04/18/20 21:20 Be Proctor MD Apr 18, 2020 22:41
[2020-04-19] VITALS: BP 143/80
[2020-04-19 04:00] VITALS: BP 133/59
[2020-04-19] MEDS: HydrALAZINE 50mg tab ORAL SCH ×3 (05:29→22:49)
[2020-04-19 08:00] VITALS: BP 114/67
--- NOTE | 2020-04-19 08:42 | General Progress Note ---
Subjective Date patient seen: Apr 19, 2020 Time patient seen: 07:15 - am Allergies: Uncoded Allergies: VITAMIN B (Allergy, Unknown, 04/11/20) Subjective HISTORY OF PRESENT ILLNESS: This is a 74-year-old male, who is being seen on the telemetry floor of [facility]. Patient is showing no signs of pain or distress. No new complaints at this time. REVIEW OF SYSTEMS: Denies rash, fever, chills, sweating, dizziness, drowsiness, blurred vision, sore throat, change in his weight. No nausea, vomiting, diarrhea, or blood in the stool or urine. No dysuria. Objective Last 24 Hour Vital Signs Date Time Temp Pulse Resp B/P (MAP) Pulse Ox O2 Delivery O2 Flow Rate FiO2 04/19/20 08:06 Room Air Room Air 04/19/20 05:29 182/88 04/19/20 04:00 97.3 89 17 133/59 (83) 95 04/19/20 00:00 96.5 78 18 143/80 (101) 95 04/18/20 21:20 127/72 04/18/20 21:20 104 127/72 04/18/20 21:00 Room Air Room Air 04/18/20 20:00 98.0 96 18 127/72 (90) 96 04/18/20 16:00 97.7 79 17 132/74 (93) 97 04/18/20 14:38 137/68 04/18/20 12:00 83 04/18/20 10:42 137/68 04/18/20 09:15 79 137/68 04/18/20 09:14 79 137/68 04/18/20 08:49 Room Air Room Air Intake and Output 04/18/20 04/19/20 18:59 06:59 Intake Total 720 ml Balance 720 ml Intake Oral 720 ml # Voids 3 3 # Bowel Movements 1 Laboratory Tests 04/18/20 09:30: Sodium Level 139, Potassium Level 3.9, Chloride Level 107, Carbon Dioxide Level 24, Anion Gap 8, Blood Urea Nitrogen 44H, Creatinine 2.1H, Estimat Glomerular Filtration Rate 37.5, Glucose Level 123H, Calcium Level 9.3, Phosphorus Level 3.2, Magnesium Level 2.0 Height (Feet): 6 Height (Inches): 1.00 Weight (Pounds): 132 Objective PHYSICAL EXAMINATION: GENERAL: Alert, awake, and oriented. LUNGS: Decreased breath sounds bilaterally. HEART: S1 and S2, regular. ABDOMEN: Soft and nontender. EXTREMITIES: No cyanosis. No clubbing. NEURO: No changes. Assessment/Plan Assessment/Plan: (1) Lumbar DDD (2) Lumbar Spondylosis (3) Lumbar Radiculopathy (4) Covid 19 Patient to be continued on [place] as needed. D/w Dr. Mendez and he concurred. Nicholas Escobedo Apr 19, 2020 08:42
[2020-04-19] MEDS: Aspirin EC 81mg tab ORAL SCH (08:47)
[2020-04-19] MEDS: Docusate 100mg cap ORAL SCH ×2 (08:47→21:00)
[2020-04-19] MEDS: dexAMETHasone 10mg/ml Inj IV SCH (08:47)
--- NOTE | 2020-04-19 08:50 | Nephrology Progress Note ---
Assessment/Plan Plan #DEYSI on CKD- improving #COVID pneumonia #hypoxemic resp failure #leukocytosis #HTN- accelerated - check renal US-> no hydro, medical renal disease - add amlodipine 10mg daily - DC IVF - lasix oral 40mg daily - hydralazine 100mg TID - metop 25mg BID - continue antibiotics - zosyn and linezolid - monitor BMP, mag and phos - strict I&Os - avoid nephrotoxins - monitor weights Time spent 65 min Subjective ROS Limited/Unobtainable: No Subjective Cr downtrending breathing stable DC IVF on lasix 40 oral daily hypertensive renal US: Impression: Negative for hydronephrosis Echogenic kidneys bilaterally, associated with medical renal disease Incidental finding bilateral renal cysts. Objective Objective Last 24 Hour Vital Signs Date Time Temp Pulse Resp B/P (MAP) Pulse Ox O2 Delivery O2 Flow Rate FiO2 04/19/20 08:06 Room Air Room Air 04/19/20 05:29 182/88 04/19/20 04:00 97.3 89 17 133/59 (83) 95 04/19/20 00:00 96.5 78 18 143/80 (101) 95 04/18/20 21:20 127/72 04/18/20 21:20 104 127/72 04/18/20 21:00 Room Air Room Air 04/18/20 20:00 98.0 96 18 127/72 (90) 96 04/18/20 16:00 97.7 79 17 132/74 (93) 97 04/18/20 14:38 137/68 04/18/20 12:00 83 04/18/20 10:42 137/68 04/18/20 09:15 79 137/68 04/18/20 09:14 79 137/68 Intake and Output 04/18/20 04/19/20 19:00 07:00 Intake Total 720 ml Balance 720 ml Intake Oral 720 ml # Voids 3 3 # Bowel Movements 1 Laboratory Tests 04/18/20 09:30: Sodium Level 139, Potassium Level 3.9, Chloride Level 107, Carbon Dioxide Level 24, Anion Gap 8, Blood Urea Nitrogen 44H, Creatinine 2.1H, Estimat Glomerular Filtration Rate 37.5, Glucose Level 123H, Calcium Level 9.3, Phosphorus Level 3.2, Magnesium Level 2.0 Height (Feet): 6 Height (Inches): 1.00 Weight (Pounds): 132 Rocco Messina M.D. Apr 19, 2020 08:50
[2020-04-19] MEDS: Heparin 5000 units/ml inj SUBQ SCH ×2 (08:53→21:00)
[2020-04-19 10:07] LABS: BASOPHILS % (AUTO) 0.8 % (0.0-2.0); EOSINOPHILS % (AUTO) 0.2 % (0.0-3.0); HEMATOCRIT 46.3 % (42.0-52.0); HEMOGLOBIN 16.1 G/DL (14.2-18.0); MEAN CORPUSCULAR VOLUME 83 FL (80-99); MONOCYTES % (AUTO) 9.8 % (1.0-10.0); NEUTROPHILS % (AUTO) 79.2 % (45.0-75.0); PLATELET COUNT 331 K/UL (150-450); RED BLOOD COUNT 5.57 M/UL (4.70-6.10); WHITE BLOOD COUNT 7.7 K/UL (4.8-10.8)
--- NOTE | 2020-04-19 10:41 | Cardiology Progress Note ---
Assessment/Plan Assessment/Plan 1. COVID-19 viral PNA pt in isolation, on decadron and remdesivir per ID CXR + interstitial disease 2. HTN - on multiple antihypertensives, improved 3. CAD s/p PCI and stent well preserved LV function, EF 65% ASA daily 3. HFpEF, chronic diastolic HF with preserved EF Lasix for diuresis IV fluids dc'd by nephro 3. COPD with exacerbation 4. DMII - insulin dependent 5. UTI; on abx per ID 6. DEYSI on CKD Lasix PO for diuresis, breathing easier today, pt denies chest pain. Stable from cardiology point of view for discharge on medical therapy. Subjective ROS Limited/Unobtainable: No Cardiovascular: Reports: no symptoms Respiratory: Reports: shortness of breath Gastrointestinal/Abdominal: Reports: no symptoms Genitourinary: Reports: no symptoms Subjective Breathing a little better today, on O2 NC. Denies chest pain. Objective Last 24 Hour Vital Signs Date Time Temp Pulse Resp B/P (MAP) Pulse Ox O2 Delivery O2 Flow Rate FiO2 04/19/20 08:48 89 159/75 04/19/20 08:47 89 157/85 04/19/20 08:06 Room Air Room Air 04/19/20 08:00 97.5 99 20 114/67 (83) 98 04/19/20 05:29 182/88 04/19/20 04:00 97.3 89 17 133/59 (83) 95 04/19/20 00:00 96.5 78 18 143/80 (101) 95 04/18/20 21:20 127/72 04/18/20 21:20 104 127/72 04/18/20 21:00 Room Air Room Air 04/18/20 20:00 98.0 96 18 127/72 (90) 96 04/18/20 16:00 97.7 79 17 132/74 (93) 97 04/18/20 14:38 137/68 04/18/20 12:00 83 04/18/20 10:42 137/68 Intake and Output 04/18/20 04/19/20 19:00 07:00 Intake Total 720 ml Balance 720 ml Intake Oral 720 ml # Voids 3 3 # Bowel Movements 1 Laboratory Tests Test 04/19/20 09:45 White Blood Count 7.7 K/UL (4.8-10.8) Red Blood Count 5.57 M/UL (4.70-6.10) Hemoglobin 16.1 G/DL (14.2-18.0) Hematocrit 46.3 % (42.0-52.0) Mean Corpuscular Volume 83 FL (80-99) Mean Corpuscular Hemoglobin 29.0 PG (27.0-31.0) Mean Corpuscular Hemoglobin Concent 34.9 G/DL (32.0-36.0) Red Cell Distribution Width 16.0 % (11.6-14.8) H Platelet Count 331 K/UL (150-450) Mean Platelet Volume 6.5 FL (6.5-10.1) Neutrophils (%) (Auto) 79.2 % (45.0-75.0) H Lymphocytes (%) (Auto) 10.0 % (20.0-45.0) L Monocytes (%) (Auto) 9.8 % (1.0-10.0) Eosinophils (%) (Auto) 0.2 % (0.0-3.0) Basophils (%) (Auto) 0.8 % (0.0-2.0) Sodium Level Pending Potassium Level Pending Chloride Level Pending Carbon Dioxide Level Pending Blood Urea Nitrogen Pending Creatinine Pending Estimat Glomerular Filtration Rate Pending Glucose Level Pending Calcium Level Pending Total Bilirubin Pending Aspartate Amino Transf (AST/SGOT) Pending Alanine Aminotransferase (ALT/SGPT) Pending Alkaline Phosphatase Pending Total Protein Pending Albumin Pending Globulin Pending Microbiology Date/Time Source Procedure Growth Status 04/17/20 13:37 Nasopharynx SARS-CoV-2 RdRp Gene Assay - Final Complete Sandra Monique PA-C Apr 19, 2020 10:41
[2020-04-19 10:49] LABS: ALBUMIN 2.9 G/DL (3.4-5.0); ALBUMIN/GLOBULIN RATIO 0.6 (1.0-2.7); BILIRUBIN,TOTAL 0.5 MG/DL (0.2-1.0); CALCIUM 9.1 MG/DL (8.5-10.1); POTASSIUM 4.2 MMOL/L (3.5-5.1)
--- NOTE | 2020-04-19 11:41 | Pulmonology Progress Note ---
Subjective ROS Limited/Unobtainable: No Interval Events: none new; waiting on arrangement for transportation to his assisted living Constitutional: Reports: fatigue; Denies: fever HEENT: Repors: no symptoms Respiratory: Reports: shortness of breath Cardiovascular: Reports: no symptoms Gastrointestinal/Abdominal: Denies: nausea, vomiting, diarrhea Genitourinary: Reports: no symptoms Psychiatric: Denies: depression Skin: Denies: rash Musculoskeletal: Denies: pain Allergies: Uncoded Allergies: VITAMIN B (Allergy, Unknown, 04/11/20) Subjective pt reports severe chronic leg/back pain despite am dose of [place]; pain scale 7/10 Objective Last 24 Hour Vital Signs Date Time Temp Pulse Resp B/P (MAP) Pulse Ox O2 Delivery O2 Flow Rate FiO2 04/19/20 08:48 89 159/75 04/19/20 08:47 89 157/85 04/19/20 08:06 Room Air Room Air 04/19/20 08:00 97.5 99 20 114/67 (83) 98 04/19/20 05:29 182/88 04/19/20 04:00 97.3 89 17 133/59 (83) 95 04/19/20 00:00 96.5 78 18 143/80 (101) 95 04/18/20 21:20 127/72 04/18/20 21:20 104 127/72 04/18/20 21:00 Room Air Room Air 04/18/20 20:00 98.0 96 18 127/72 (90) 96 04/18/20 16:00 97.7 79 17 132/74 (93) 97 04/18/20 14:38 137/68 04/18/20 12:00 83 Intake and Output 04/18/20 04/19/20 19:00 07:00 Intake Total 720 ml Balance 720 ml Intake Oral 720 ml # Voids 3 3 # Bowel Movements 1 Objective pt sitting up in bed; NAD General Appearance: no acute distress HEENT: normocephalic, mucous membranes moist Respiratory: chest wall non-tender, lungs clear Cardiovascular: normal peripheral pulses Abdomen: normal bowel sounds, soft, non tender Extremities: no cyanosis, no edema Microbiology Date/Time Source Procedure Growth Status 04/17/20 13:37 Nasopharynx SARS-CoV-2 RdRp Gene Assay - Final Complete Laboratory Tests 04/19/20 09:45: White Blood Count 7.7, Red Blood Count 5.57, Hemoglobin 16.1, Hematocrit 46.3, Mean Corpuscular Volume 83, Mean Corpuscular Hemoglobin 29.0, Mean Corpuscular Hemoglobin Concent 34.9, Red Cell Distribution Width 16.0H, Platelet Count 331, Mean Platelet Volume 6.5, Neutrophils (%) (Auto) 79.2H, Lymphocytes (%) (Auto) 10.0L, Monocytes (%) (Auto) 9.8, Eosinophils (%) (Auto) 0.2, Basophils (%) (Auto) 0.8, Sodium Level 143, Potassium Level 4.2, Chloride Level 110H, Carbon Dioxide Level 23, Anion Gap 11, Blood Urea Nitrogen 49H, Creatinine 2.0H, Estimat Glomerular Filtration Rate 39.6, Glucose Level 119H, Calcium Level 9.1, Total Bilirubin 0.5, Aspartate Amino Transf (AST/SGOT) 18, Alanine Aminotransferase (ALT/SGPT) 23, Alkaline Phosphatase 63, Total Protein 7.6, Albumin 2.9L, Globulin 4.7, Albumin/Globulin Ratio 0.6L Current Medications Medications (Trade) Dose Ordered Sig/Lewis Route PRN Reason Start Time Stop Time Status Last Admin Dose Admin Acetaminophen (Tylenol) 650 mg Q4H PRN ORAL pain 1-3 04/11/20 18:00 05/11/20 17:59 04/12/20 18:10 Acetaminophen/ Hydrocodone Bitart ([place] 10/325) 1 tab BID PRN ORAL pain 4-10 04/14/20 09:00 04/21/20 08:59 04/18/20 05:16 Albuterol Sulfate (Proventil MDI) 2 puff Q4H PRN INH Shortness of Breath 04/16/20 13:45 07/15/20 13:44 Amlodipine Besylate (Norvasc) 10 mg DAILY ORAL 04/14/20 09:30 05/14/20 09:29 04/19/20 08:47 Aspirin (Ecotrin) 81 mg DAILY ORAL 04/15/20 09:00 05/30/20 08:59 04/19/20 08:47 Dexamethasone Sodium Phosphate (Decadron 10mg/ ml Inj) 6 mg DAILY IV 04/13/20 09:00 04/22/20 09:01 04/19/20 08:47 Dextrose (Dextrose 50%) 25 ml Q30M PRN IV Hypoglycemia 04/11/20 18:00 07/10/20 17:59 Dextrose (Dextrose 50%) 50 ml Q30M PRN IV Hypoglycemia 04/11/20 18:00 07/10/20 17:59 Docusate Sodium (Colace) 100 mg EVERY 12 HOURS ORAL 04/11/20 21:00 05/11/20 20:59 04/19/20 08:47 Famotidine (Pepcid) 40 mg DAILY ORAL 04/12/20 09:00 07/11/20 08:59 04/19/20 08:47 Furosemide (Lasix) 40 mg DAILY ORAL 04/20/20 09:00 05/20/20 08:59 Heparin Sodium (Porcine) (Heparin 5000 units/ml) 5,000 units EVERY 12 HOURS SUBQ 04/11/20 18:07 05/26/20 18:06 04/19/20 08:53 Hydralazine HCl (Apresoline) 10 mg EVERY 6 HOURS PRN IV For High Blood Pressure 04/14/20 09:00 07/13/20 08:59 04/16/20 11:23 Hydralazine HCl (Apresoline) 100 mg EVERY 8 HOURS ORAL 04/18/20 14:00 07/13/20 13:59 04/19/20 05:29 Meropenem 500 mg/ Sodium Chloride 50 ml @ 100 mls/hr Q12HR IVPB 04/14/20 21:00 04/19/20 20:59 04/16/20 08:13 Metoprolol Tartrate (Lopressor) 25 mg Q12HR ORAL 04/16/20 21:00 07/15/20 20:59 04/19/20 08:48 Assessment/Plan Assessment/Plan 1. COVID-19 pneumonia. - Continue Decadron. Switch to PO - cont broad-spectrum Abx - CXR 04/14/2020 New small left mid to lower lung patchy opacity - CXR 04/16/2020 slightly increased opacities in the L lower lung and R mid and lower lung 2. Renal failure. - Renal US Negative for hydronephrosis - 04/16/2020 BUN and Cr improving - per renal 3. History of COPD. - Saturating 95% on 2 lpm NC; now on RA - albuterol MDI added 4. Severe chronic leg/bag pain - per pain management - Currently on 10 mg [place] BID prn pain; reports chronic use 5. DVT prophylaxis - On Lovenox 6. Hyperkalemia; normalized - K 5.3 -> 4.1 -> 4.2 - s/p Kayexalate - Lasix added 7. HTN - On Amlodipine - On Hydralazine prn - 2D echo, per cardio - added diuretics continue home medications. Stable from pulmonology point of view for discharge on medical therapy. 04/17/2020 Covid-19 test neg; Will dc back to original place of assisted living in [place] - dc was planned for today; still awaiting on arrangements from the assisted living for transportation 04/19/2020 per RN, his place of assisted living will not accept him for anther 1 0-14 days due to his recent COVID-19 status despite his most recent negative COVID-19 result. 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 The patient was seen and examined at bedside and all new and available data was reviewed in the patients chart. I agree with the above findings, impression, and plan. (Patient was seen earlier today. Signature timestamp does not reflect patient encounter time) Miguel Ozuna MD Apr 19, 2020 11:41 Derrek Nava MD Apr 19, 2020 17:17
[2020-04-19 12:00] VITALS: BP 126/63
[2020-04-19] MEDS: Ertapenem (INVanz) 1gm Inj IM SCH (14:50)
[2020-04-19] MEDS: Lidocaine 1% MPF 10mg/ml 5ml INJ SCH (14:50)
[2020-04-19] MEDS: HYDROcodone/Acetamin 10/325 tab ORAL PRN (15:03)
[2020-04-19 16:00] VITALS: BP 120/65
[2020-04-19 20:00] VITALS: BP 122/64
[2020-04-20 00:10] VITALS: BP 110/70
[2020-04-20] MEDS: HYDROcodone/Acetamin 10/325 tab ORAL PRN ×2 (03:36→15:29)
[2020-04-20 04:00] VITALS: BP 123/96
[2020-04-20] MEDS: HydrALAZINE 50mg tab ORAL SCH ×3 (05:46→22:37)
[2020-04-20 08:00] VITALS: BP_SYST 126; BP_SYST 142; BP_DIAS 64; BP_DIAS 78
[2020-04-20 08:46] LABS: CALCIUM 9.4 MG/DL (8.5-10.1); CREATININE 1.9 MG/DL (0.55-1.30); PHOSPHORUS 4.3 MG/DL (2.5-4.9); POTASSIUM 4.9 MMOL/L (3.5-5.1)
--- NOTE | 2020-04-20 08:49 | General Progress Note ---
Subjective Date patient seen: Apr 20, 2020 Time patient seen: 07:00 - am Allergies: Uncoded Allergies: VITAMIN B (Allergy, Unknown, 04/11/20) Subjective HISTORY OF PRESENT ILLNESS: This is a 74-year-old male, who is being seen on the telemetry floor of [facility]. Patient continues to be in bed denies pain at this time. Using the [place] as needed. No new complaints. REVIEW OF SYSTEMS: Denies rash, fever, chills, sweating, dizziness, drowsiness, blurred vision, sore throat, change in his weight. No nausea, vomiting, diarrhea, or blood in the stool or urine. No dysuria. Objective Last 24 Hour Vital Signs Date Time Temp Pulse Resp B/P (MAP) Pulse Ox O2 Delivery O2 Flow Rate FiO2 04/20/20 08:00 97.1 70 19 126/78 (94) 95 04/20/20 05:46 123/96 04/20/20 04:00 96.8 74 18 123/96 (105) 97 04/20/20 00:10 98.4 62 20 110/70 (83) 95 04/19/20 22:49 136/78 04/19/20 21:49 79 122/64 04/19/20 21:00 Room Air Room Air 04/19/20 20:00 97.5 79 20 122/64 (83) 99 04/19/20 16:00 97.5 80 20 120/65 (83) 94 04/19/20 14:15 126/63 04/19/20 12:00 97.6 78 20 126/63 (84) 95 Intake and Output 04/19/20 04/20/20 19:00 07:00 Intake Total 780 ml 360 ml Balance 780 ml 360 ml Intake Oral 780 ml Other 360 ml # Voids 3 2 # Bowel Movements 1 2 Laboratory Tests 04/19/20 09:45: White Blood Count 7.7, Red Blood Count 5.57, Hemoglobin 16.1, Hematocrit 46.3, Mean Corpuscular Volume 83, Mean Corpuscular Hemoglobin 29.0, Mean Corpuscular Hemoglobin Concent 34.9, Red Cell Distribution Width 16.0H, Platelet Count 331, Mean Platelet Volume 6.5, Neutrophils (%) (Auto) 79.2H, Lymphocytes (%) (Auto) 10.0L, Monocytes (%) (Auto) 9.8, Eosinophils (%) (Auto) 0.2, Basophils (%) (Auto) 0.8, Sodium Level 143, Potassium Level 4.2, Chloride Level 110H, Carbon Dioxide Level 23, Anion Gap 11, Blood Urea Nitrogen 49H, Creatinine 2.0H, Estimat Glomerular Filtration Rate 39.6, Glucose Level 119H, Calcium Level 9.1, Total Bilirubin 0.5, Aspartate Amino Transf (AST/SGOT) 18, Alanine Aminotrans ferase (ALT/SGPT) 23, Alkaline Phosphatase 63, Total Protein 7.6, Albumin 2.9L, Globulin 4.7, Albumin/Globulin Ratio 0.6L 04/20/20 07:40: Sodium Level [Pending], Potassium Level [Pending], Chloride Level [Pending], Carbon Dioxide Level [Pending], Blood Urea Nitrogen [Pending], Creatinine [Pending], Estimat Glomerular Filtration Rate [Pending], Glucose Level [Pending], Calcium Level [Pending], Phosphorus Level [Pending], Magnesium Level [Pending] Height (Feet): 6 Height (Inches): 1.00 Weight (Pounds): 132 Objective PHYSICAL EXAMINATION: GENERAL: Alert, awake, and oriented. LUNGS: Decreased breath sounds bilaterally. HEART: S1 and S2, regular. ABDOMEN: Soft and nontender. EXTREMITIES: No cyanosis. No clubbing. NEURO: No changes. Assessment/Plan Assessment/Plan: (1) Lumbar DDD (2) Lumbar Spondylosis (3) Lumbar Radiculopathy (4) Covid 19 Patient to be continued on [place] as needed. D/w Dr. Mendez and he concurred. Nicholas Escobedo Apr 20, 2020 08:49
[2020-04-20] MEDS: Furosemide 40mg tab ORAL SCH (09:00)
[2020-04-20] MEDS: Lidocaine 1% MPF 10mg/ml 5ml INJ SCH (09:00)
[2020-04-20] MEDS: Heparin 5000 units/ml inj SUBQ SCH ×2 (09:00→21:00)
[2020-04-20] MEDS: Ertapenem (INVanz) 1gm Inj IM SCH (09:00)
[2020-04-20] MEDS: dexAMETHasone 10mg/ml Inj IV SCH (09:00)
[2020-04-20] MEDS: Docusate 100mg cap ORAL SCH ×2 (09:00→21:00)
[2020-04-20] MEDS: Aspirin EC 81mg tab ORAL SCH (09:00)
--- NOTE | 2020-04-20 09:33 | Nephrology Progress Note ---
Assessment/Plan Plan #EDYSI on CKD- improving #COVID pneumonia #hypoxemic resp failure #leukocytosis #HTN- accelerated - check renal US-> no hydro, medical renal disease - add amlodipine 10mg daily - DC IVF - lasix oral 40mg daily - hydralazine 100mg TID - metop 25mg BID - continue antibiotics - zosyn and linezolid - monitor BMP, mag and phos - strict I&Os - avoid nephrotoxins - monitor weights Time spent 65 min Subjective ROS Limited/Unobtainable: No Constitutional: Reports: weakness HEENT: Denies: no symptoms, eye pain, blurred vision, tearing, double vision, ear pain, ear discharge, nose pain, nose congestion, throat pain, throat swel ling, mouth pain, mouth swelling, other Genitourinary: Denies: no symptoms, burning, discharge, frequency, flank pain, hematuria, incontinence, pain, urgency, other Neurologic/Psychiatric: Denies: no symptoms, anxiety, depressed, emotional problems, headache, numbness, paresthesia, pre-existing deficit, seizure, tingling, tremors, weakness, other Subjective Cr downtrending breathing stable DC IVF on lasix 40 oral daily hypertensive renal US: Impression: Negative for hydronephrosis Echogenic kidneys bilaterally, associated with medical renal disease Incidental finding bilateral renal cysts. Objective Objective Last 24 Hour Vital Signs Date Time Temp Pulse Resp B/P (MAP) Pulse Ox O2 Delivery O2 Flow Rate FiO2 04/20/20 09:00 70 126/78 04/20/20 09:00 70 126/78 04/20/20 08:00 97.1 70 19 126/78 (94) 95 04/20/20 05:46 123/96 04/20/20 04:00 96.8 74 18 123/96 (105) 97 04/20/20 00:10 98.4 62 20 110/70 (83) 95 04/19/20 22:49 136/78 04/19/20 21:49 79 122/64 04/19/20 21:00 Room Air Room Air 04/19/20 20:00 97.5 79 20 122/64 (83) 99 04/19/20 16:00 97.5 80 20 120/65 (83) 94 04/19/20 14:15 126/63 04/19/20 12:00 97.6 78 20 126/63 (84) 95 Intake and Output 04/19/20 04/20/20 19:00 07:00 Intake Total 780 ml 360 ml Balance 780 ml 360 ml Intake Oral 780 ml Other 360 ml # Voids 3 2 # Bowel Movements 1 2 Laboratory Tests 04/19/20 09:45: White Blood Count 7.7, Red Blood Count 5.57, Hemoglobin 16.1, Hematocrit 46.3, Mean Corpuscular Volume 83, Mean Corpuscular Hemoglobin 29.0, Mean Corpuscular Hemoglobin Concent 34.9, Red Cell Distribution Width 16.0H, Platelet Count 331, Mean Platelet Volume 6.5, Neutrophils (%) (Auto) 79.2H, Lymphocytes (%) (Auto) 10.0L, Monocytes (%) (Auto) 9.8, Eosinophils (%) (Auto) 0.2, Basophils (%) (Auto) 0.8, Sodium Level 143, Potassium Level 4.2, Chloride Level 110H, Carbon Dioxide Level 23, Anion Gap 11, Blood Urea Nitrogen 49H, Creatinine 2.0H, Estimat Glomerular Filtration Rate 39.6, Glucose Level 119H, Calcium Level 9.1, Total Bilirubin 0.5, Aspartate Amino Transf (AST/SGOT) 18, Alanine Aminotransferase (ALT/SGPT) 23, Alkaline Phosphatase 63, Total Protein 7.6, Albumin 2.9L, Globulin 4.7, Albumin/Globulin Ratio 0.6L 04/20/20 07:40: Sodium Level 140, Potassium Level 4.9, Chloride Level 106, Carbon Dioxide Level 24, Anion Gap 10, Blood Urea Nitrogen 48H, Creatinine 1.9H, Estimat Glomerular Filtration Rate 42.1, Glucose Level 87, Calcium Level 9.4, Phosphorus Level 4.3, Magnesium Level 2.0 Height (Feet): 6 Height (Inches): 1.00 Weight (Pounds): 132 Rocco Messina M.D. Apr 20, 2020 09:33
--- NOTE | 2020-04-20 09:38 | Cardiology Progress Note ---
Assessment/Plan Assessment/Plan 1. COVID-19 viral PNA antivirals and abx per ID CXR + interstitial disease 2. HTN - on multiple antihypertensives, improved 3. CAD s/p PCI and stent well preserved LV function, EF 65% ASA daily 3. HFpEF, chronic diastolic HF with preserved EF Lasix for diuresis IV fluids dc'd by nephro 3. COPD with exacerbation 4. DMII - insulin dependent 5. UTI; on abx per ID 6. DEYSI on CKD Lasix PO for diuresis, breathing easier, pt denies chest pain. Stable from cardiology point of view for discharge on medical therapy. Subjective ROS Limited/Unobtainable: No Cardiovascular: Reports: no symptoms Respiratory: Reports: shortness of breath Gastrointestinal/Abdominal: Reports: no symptoms Genitourinary: Reports: no symptoms Subjective Breathing a little better today, on O2 NC. Denies chest pain. Objective Last 24 Hour Vital Signs Date Time Temp Pulse Resp B/P (MAP) Pulse Ox O2 Delivery O2 Flow Rate FiO2 04/20/20 09:00 70 126/78 04/20/20 09:00 70 126/78 04/20/20 08:00 97.1 70 19 126/78 (94) 95 04/20/20 05:46 123/96 04/20/20 04:00 96.8 74 18 123/96 (105) 97 04/20/20 00:10 98.4 62 20 110/70 (83) 95 04/19/20 22:49 136/78 04/19/20 21:49 79 122/64 04/19/20 21:00 Room Air Room Air 04/19/20 20:00 97.5 79 20 122/64 (83) 99 04/19/20 16:00 97.5 80 20 120/65 (83) 94 04/19/20 14:15 126/63 04/19/20 12:00 97.6 78 20 126/63 (84) 95 General Appearance: no apparent distress EENT: PERRL/EOMI Neck: no JVD Rhythm: NSR Cardiovascular: normal rate, regular rhythm Respiratory/Chest: no respiratory distress, no accessory muscle use Abdomen: non tender, soft Extremities: trace edema 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 Intake and Output 04/19/20 04/20/20 19:00 07:00 Intake Total 780 ml 360 ml Balance 780 ml 360 ml Intake Oral 780 ml Other 360 ml # Voids 3 2 # Bowel Movements 1 2 Laboratory Tests Test 04/19/20 09:45 04/20/20 07:40 White Blood Count 7.7 K/UL (4.8-10.8) Red Blood Count 5.57 M/UL (4.70-6.10) Hemoglobin 16.1 G/DL (14.2-18.0) Hematocrit 46.3 % (42.0-52.0) Mean Corpuscular Volume 83 FL (80-99) Mean Corpuscular Hemoglobin 29.0 PG (27.0-31.0) Mean Corpuscular Hemoglobin Concent 34.9 G/DL (32.0-36.0) Red Cell Distribution Width 16.0 % (11.6-14.8) H Platelet Count 331 K/UL (150-450) Mean Platelet Volume 6.5 FL (6.5-10.1) Neutrophils (%) (Auto) 79.2 % (45.0-75.0) H Lymphocytes (%) (Auto) 10.0 % (20.0-45.0) L Monocytes (%) (Auto) 9.8 % (1.0-10.0) Eosinophils (%) (Auto) 0.2 % (0.0-3.0) Basophils (%) (Auto) 0.8 % (0.0-2.0) Sodium Level 143 MMOL/L (136-145) 140 MMOL/L (136-145) Potassium Level 4.2 MMOL/L (3.5-5.1) 4.9 MMOL/L (3.5-5.1) Chloride Level 110 MMOL/L (98-107) H 106 MMOL/L (98-107) Carbon Dioxide Level 23 MMOL/L (21-32) 24 MMOL/L (21-32) Anion Gap 11 mmol/L (5-15) 10 mmol/L (5-15) Blood Urea Nitrogen 49 mg/dL (7-18) H 48 mg/dL (7-18) H Creatinine 2.0 MG/DL (0.55-1.30) H 1.9 MG/DL (0.55-1.30) H Estimat Glomerular Filtration Rate 39.6 mL/min (>60) 42.1 mL/min (>60) Glucose Level 119 MG/DL (74-106) H 87 MG/DL (74-106) Calcium Level 9.1 MG/DL (8.5-10.1) 9.4 MG/DL (8.5-10.1) Total Bilirubin 0.5 MG/DL (0.2-1.0) Aspartate Amino Transf (AST/SGOT) 18 U/L (15-37) Alanine Aminotransferase (ALT/SGPT) 23 U/L (12-78) Alkaline Phosphatase 63 U/L (46-116) Total Protein 7.6 G/DL (6.4-8.2) Albumin 2.9 G/DL (3.4-5.0) L Globulin 4.7 g/dL Albumin/Globulin Ratio 0.6 (1.0-2.7) L Phosphorus Level 4.3 MG/DL (2.5-4.9) Magnesium Level 2.0 MG/DL (1.8-2.4) Microbiology Date/Time Source Procedure Growth Status 04/17/20 13:37 Nasopharynx SARS-CoV-2 RdRp Gene Assay - Final Complete Sandra Monique PA-C Apr 20, 2020 09:37
[2020-04-20 12:00] VITALS: BP 129/83
--- NOTE | 2020-04-20 12:19 | Pulmonology Progress Note ---
Subjective ROS Limited/Unobtainable: No Interval Events: none new; waiting on arrangement for transportation to his assisted living Constitutional: Reports: fatigue; Denies: fever HEENT: Repors: no symptoms Respiratory: Reports: no symptoms Cardiovascular: Reports: no symptoms Gastrointestinal/Abdominal: Denies: nausea, vomiting, diarrhea Genitourinary: Reports: no symptoms Psychiatric: Denies: depression Skin: Denies: rash Musculoskeletal: Denies: pain Allergies: Uncoded Allergies: VITAMIN B (Allergy, Unknown, 04/11/20) Subjective pt reports severe chronic leg/back pain despite am dose of [place]; pain scale 7/10 Objective Last 24 Hour Vital Signs Date Time Temp Pulse Resp B/P (MAP) Pulse Ox O2 Delivery O2 Flow Rate FiO2 04/20/20 09:00 70 126/78 04/20/20 09:00 70 126/78 04/20/20 08:00 Room Air Room Air 04/20/20 08:00 97.1 70 19 126/78 (94) 95 04/20/20 05:46 123/96 04/20/20 04:00 96.8 74 18 123/96 (105) 97 04/20/20 00:10 98.4 62 20 110/70 (83) 95 04/19/20 22:49 136/78 04/19/20 21:49 79 122/64 04/19/20 21:00 Room Air Room Air 04/19/20 20:00 97.5 79 20 122/64 (83) 99 04/19/20 16:00 97.5 80 20 120/65 (83) 94 04/19/20 14:15 126/63 Intake and Output 04/19/20 04/20/20 19:00 07:00 Intake Total 780 ml 360 ml Balance 780 ml 360 ml Intake Oral 780 ml Other 360 ml # Voids 3 2 # Bowel Movements 1 2 Objective saturating well on RA General Appearance: no acute distress HEENT: normocephalic, mucous membranes moist Respiratory: chest wall non-tender, lungs clear Cardiovascular: normal peripheral pulses Abdomen: normal bowel sounds, soft, non tender Extremities: no cyanosis, no edema Microbiology Date/Time Source Procedure Growth Status 04/17/20 13:37 Nasopharynx SARS-CoV-2 RdRp Gene Assay - Final Complete Laboratory Tests 04/20/20 07:40: Sodium Level 140, Potassium Level 4.9, Chloride Level 106, Carbon Dioxide Level 24, Anion Gap 10, Blood Urea Nitrogen 48H, Creatinine 1.9H, Estimat Glomerular Filtration Rate 42.1, Glucose Level 87, Calcium Level 9.4, Phosphorus Level 4.3, Magnesium Level 2.0 Current Medications Medications (Trade) Dose Ordered Sig/Lewis Route PRN Reason Start Time Stop Time Status Last Admin Dose Admin Acetaminophen (Tylenol) 650 mg Q4H PRN ORAL pain 1-3 04/11/20 18:00 05/11/20 17:59 04/12/20 18:10 Acetaminophen/ Hydrocodone Bitart ([place] 10/325) 1 tab BID PRN ORAL pain 4-10 04/14/20 09:00 04/21/20 08:59 04/20/20 03:36 Albuterol Sulfate (Proventil MDI) 2 puff Q4H PRN INH Shortness of Breath 04/16/20 13:45 07/15/20 13:44 Amlodipine Besylate (Norvasc) 10 mg DAILY ORAL 04/14/20 09:30 05/14/20 09:29 04/19/20 08:47 Aspirin (Ecotrin) 81 mg DAILY ORAL 04/15/20 09:00 05/30/20 08:59 04/19/20 08:47 Dexamethasone (Decadron) 6 mg DAILY ORAL 04/20/20 11:00 04/25/20 10:59 04/20/20 11:30 Dextrose (Dextrose 50%) 25 ml Q30M PRN IV Hypoglycemia 04/11/20 18:00 07/10/20 17:59 Dextrose (Dextrose 50%) 50 ml Q30M PRN IV Hypoglycemia 04/11/20 18:00 07/10/20 17:59 Docusate Sodium (Colace) 100 mg EVERY 12 HOURS ORAL 04/11/20 21:00 05/11/20 20:59 04/19/20 08:47 Ertapenem (INVanz) 0.5 gm DAILY IM 04/19/20 15:00 04/24/20 14:59 04/19/20 14:50 Famotidine (Pepcid) 40 mg DAILY ORAL 04/12/20 09:00 07/11/20 08:59 04/19/20 08:47 Furosemide (Lasix) 40 mg DAILY ORAL 04/20/20 09:00 05/20/20 08:59 Heparin Sodium (Porcine) (Heparin 5000 units/ml) 5,000 units EVERY 12 HOURS SUBQ 04/11/20 18:07 05/26/20 18:06 04/19/20 08:53 Hydralazine HCl (Apresoline) 100 mg EVERY 8 HOURS ORAL 04/18/20 14:00 07/13/20 13:59 04/20/20 05:46 Lidocaine (Xylocaine 1% MPF 5ml) 3.2 ml DAILY INJ 04/19/20 15:00 07/18/20 14:59 04/19/20 14:50 Metoprolol Tartrate (Lopressor) 25 mg Q12HR ORAL 04/16/20 21:00 07/15/20 20:59 04/19/20 21:49 Assessment/Plan Assessment/Plan 1. COVID-19 pneumonia. - Continue Decadron. Switched to PO - cont broad-spectrum Abx - CXR 04/14/2020 New small left mid to lower lung patchy opacity - CXR 04/16/2020 slightly increased opacities in the L lower lung and R mid and lower lung 2. Renal failure. - Renal US Negative for hydronephrosis - 04/16/2020 BUN and Cr improving - per renal 3. History of COPD. - Saturating well on RA - albuterol MDI added 4. Severe chronic leg/bag pain - per pain management - Currently on 10 mg [place] BID prn pain; reports chronic use 5. DVT prophylaxis - On Lovenox 6. Hyperkalemia; normalized - s/p Kayexalate - Lasix added 7. HTN - On Amlodipine - On Hydralazine prn - on diuretics continue home medications. Stable from pulmonology point of view for discharge on medical therapy. 04/17/2020 Covid-19 test neg; Will dc back to original place of assisted living in [place] - dc was planned for today; still awaiting on arrangements from the assisted living for transportation 04/19/2020 per RN, his place of assisted living will not accept him for anther 10-14 days due to his recent COVID-19 status despite his most recent negative COVID-19 result. manager assembly working on finding a temporary place of care until his assisted living will allow him to come back. 04/20/2020 transfer pt to med-surg unit The care of this patient was discussed with my supervising physician Time spent for this encounter was approximately 31 minutes The patient was seen and examined at bedside and all new and available data was reviewed in the patients chart. I agree with the above findings, impression, and plan. (Patient was seen earlier today. Signature timestamp does not reflect patient encounter time) Miguel Ozuna MD Apr 20, 2020 12:19 Derrek Nava MD Apr 20, 2020 18:01
[2020-04-20 16:00] VITALS: BP 121/86
[2020-04-20 20:00] VITALS: BP 123/75
--- NOTE | 2020-04-21 00:44 | Infectious Diseases Prog Note ---
Assessment/Plan Assessment/Plan ASSESSMENT AND PLAN: 1. esbl e.coli uti, hx covid-19 infection, pneumonia, sepsis, fevers, leukocytosis - meropenem - day # 910 abx - dexamethasone - day # 01/19 - monitor clinically, hypoxia, labs and chest x-ray as indicated - clinically improved 2. Renal failure. 3. COVID-19 infection history. 4. The patient is anemic. 5. No history of diabetes and hypertension. 6. Renal failure. Treatment per Renal and Medicine. 7. Allergy to vitamin D. 8. Social history is negative. 9. Family history is noncontributory. 10. MAR is noted. 11. Case was discussed with RN. 12. COVID isolation. 13. Case was discussed with Dr. Nava. Subjective Constitutional: Reports: fatigue; Denies: fever Respiratory: Denies: shortness of breath Cardiovascular: Denies: chest pain Gastrointestinal/Abdominal: Denies: nausea, vomiting, diarrhea Genitourinary: Denies: hematuria, frequency Neurologic: Denies: headache Psychiatric: Denies: depression Skin: Denies: rash Hematologic: Denies: bleeding Musculoskeletal: Denies: pain Allergies: Uncoded Allergies: VITAMIN B (Allergy, Unknown, 04/11/20) Objective Last 24 Hour Vital Signs Date Time Temp Pulse Resp B/P (MAP) Pulse Ox O2 Delivery O2 Flow Rate FiO2 04/20/20 21:00 Room Air Room Air 04/20/20 21:00 82 123/75 04/20/20 20:00 97.7 82 16 123/75 (91) 96 04/20/20 16:00 98.1 79 17 121/86 (98) 96 04/20/20 13:36 129/83 04/20/20 12:00 98.4 89 19 129/83 (98) 95 04/20/20 09:00 70 126/78 04/20/20 09:00 70 126/78 04/20/20 08:00 Room Air Room Air 04/20/20 08:00 97.1 70 19 126/78 (94) 95 04/20/20 05:46 123/96 04/20/20 04:00 96.8 74 18 123/96 (105) 97 Height (Feet): 6 Height (Inches): 1.00 Weight (Pounds): 132 General Appearance: no acute distress HEENT: normocephalic, atraumatic, anicteric Respiratory/Chest: no accessory muscle use, crackles/rales, rhonchi - bilaterally Cardiovascular: normal rate, regular rhythm Abdomen: normal bowel sounds, soft, non tender, no organomegaly, non distended Genitourinary: other - no contreras Extremities: no cyanosis Skin: no rash Neurologic/Psychiatric: instrumentation controls 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 There is some scarring or atelectasis in the left mid and upper lung. Infiltrate in the right upper lobe, hyperinflation of the right lower lobe is again demonstrated. Left sided pleural thickening versus fluid is unchanged. Impression: New small left mid to lower lung patchy opacity, possibly a small focus of consolidation. Otherwise stable findings as described Chest x-ray - 04/16/20 - IMPRESSION: 1. Hyperinflation of the lungs with probable emphysematous changes again noted, prominent in the mid and lower lungs. 2. Similar interstitial opacities in the upper lungs may represent chronic lung changes/scarring versus infectious/inflammatory process. 3. Slightly increased opacities in the left lower lung and right mid and lower lung may represent an infectious/inflammatory process. Microbiology Date/Time Source Procedure Growth Status 04/17/20 13:37 Nasopharynx SARS-CoV-2 RdRp Gene Assay - Final Complete 04/12/20 14:30 Urine,Clean Catch Urine Culture - Final Escherichia Coli - Esbl Complete 04/11/20 12:05 Blood Blood Culture - Final NO GROWTH AFTER 5 DAYS Complete Labs Test 04/18/20 09:30 04/19/20 09:45 04/20/20 07:40 Sodium Level 139 MMOL/L (136-145) 143 MMOL/L (136-145) 140 MMOL/L (136-145) Potassium Level 3.9 MMOL/L (3.5-5.1) 4.2 MMOL/L (3.5-5.1) 4.9 MMOL/L (3.5-5.1) Chloride Level 107 MMOL/L (98-107) 110 MMOL/L (98-107) 106 MMOL/L (98-107) Carbon Dioxide Level 24 MMOL/L (21-32) 23 MMOL/L (21-32) 24 MMOL/L (21-32) Anion Gap 8 mmol/L (5-15) 11 mmol/L (5-15) 10 mmol/L (5-15) Blood Urea Nitrogen 44 mg/dL (7-18) 49 mg/dL (7-18) 48 mg/dL (7-18) Creatinine 2.1 MG/DL (0.55-1.30) 2.0 MG/DL (0.55-1.30) 1.9 MG/DL (0.55-1.30) Estimat Glomerular Filtration Rate 37.5 mL/min (>60) 39.6 mL/min (>60) 42.1 mL/min (>60) Glucose Level 123 MG/DL (74-106) 119 MG/DL (74-106) 87 MG/DL (74-106) Calcium Level 9.3 MG/DL (8.5-10.1) 9.1 MG/DL (8.5-10.1) 9.4 MG/DL (8.5-10.1) Phosphorus Level 3.2 MG/DL (2.5-4.9) 4.3 MG/DL (2.5-4.9) Magnesium Level 2.0 MG/DL (1.8-2.4) 2.0 MG/DL (1.8-2.4) White Blood Count 7.7 K/UL (4.8-10.8) Red Blood Count 5.57 M/UL (4.70-6.10) Hemoglobin 16.1 G/DL (14.2-18.0) Hematocrit 46.3 % (42.0-52.0) Mean Corpuscular Volume 83 FL (80-99) Mean Corpuscular Hemoglobin 29.0 PG (27.0-31.0) Mean Corpuscular Hemoglobin Concent 34.9 G/DL (32.0-36.0) Red Cell Distribution Width 16.0 % (11.6-14.8) Platelet Count 331 K/UL (150-450) Mean Platelet Volume 6.5 FL (6.5-10.1) Neutrophils (%) (Auto) 79.2 % (45.0-75.0) Lymphocytes (%) (Auto) 10.0 % (20.0-45.0) Monocytes (%) (Auto) 9.8 % (1.0-10.0) Eosinophils (%) (Auto) 0.2 % (0.0-3.0) Basophils (%) (Auto) 0.8 % (0.0-2.0) Total Bilirubin 0.5 MG/DL (0.2-1.0) Aspartate Amino Transf (AST/SGOT) 18 U/L (15-37) Alanine Aminotransferase (ALT/SGPT) 23 U/L (12-78) Alkaline Phosphatase 63 U/L (46-116) Total Protein 7.6 G/DL (6.4-8.2) Albumin 2.9 G/DL (3.4-5.0) Globulin 4.7 g/dL Albumin/Globulin Ratio 0.6 (1.0-2.7) Laboratory Tests Test 04/20/20 07:40 Sodium Level 140 MMOL/L (136-145) Potassium Level 4.9 MMOL/L (3.5-5.1) Chloride Level 106 MMOL/L (98-107) Carbon Dioxide Level 24 MMOL/L (21-32) Anion Gap 10 mmol/L (5-15) Blood Urea Nitrogen 48 mg/dL (7-18) H Creatinine 1.9 MG/DL (0.55-1.30) H Estimat Glomerular Filtration Rate 42.1 mL/min (>60) Glucose Level 87 MG/DL (74-106) Calcium Level 9.4 MG/DL (8.5-10.1) Phosphorus Level 4.3 MG/DL (2.5-4.9) Magnesium Level 2.0 MG/DL (1.8-2.4) Current Medications Medications (Trade) Dose Ordered Sig/Lewis Route PRN Reason Start Time Stop Time Status Last Admin Dose Admin Acetaminophen (Tylenol) 650 mg Q4H PRN ORAL pain 1-3 04/11/20 18:00 05/11/20 17:59 04/12/20 18:10 Acetaminophen/ Hydrocodone Bitart ([place] 10/325) 1 tab BIDPRN PRN ORAL pain 4-10 04/20/20 17:15 04/27/20 17:14 Albuterol Sulfate (Proventil MDI) 2 puff Q4H PRN INH Shortness of Breath 04/16/20 13:45 07/15/20 13:44 Amlodipine Besylate (Norvasc) 10 mg DAILY ORAL 04/14/20 09:30 05/14/20 09:29 04/19/20 08:47 Aspirin (Ecotrin) 81 mg DAILY ORAL 04/15/20 09:00 05/30/20 08:59 04/19/20 08:47 Dexamethasone (Decadron) 6 mg DAILY ORAL 04/20/20 11:00 04/25/20 10:59 04/20/20 11:30 Dextrose (Dextrose 50%) 25 ml Q30M PRN IV Hypoglycemia 04/11/20 18:00 07/10/20 17:59 Dextrose (Dextrose 50%) 50 ml Q30M PRN IV Hypoglycemia 04/11/20 18:00 07/10/20 17:59 Docusate Sodium (Colace) 100 mg EVERY 12 HOURS ORAL 04/11/20 21:00 05/11/20 20:59 04/19/20 08:47 Ertapenem (INVanz) 0.5 gm DAILY IM 04/19/20 15:00 04/24/20 14:59 04/19/20 14:50 Famotidine (Pepcid) 40 mg DAILY ORAL 04/12/20 09:00 07/11/20 08:59 04/19/20 08:47 Furosemide (Lasix) 40 mg DAILY ORAL 04/20/20 09:00 05/20/20 08:59 Heparin Sodium (Porcine) (Heparin 5000 units/ml) 5,000 units EVERY 12 HOURS SUBQ 04/11/20 18:07 05/26/20 18:06 04/19/20 08:53 Hydralazine HCl (Apresoline) 100 mg EVERY 8 HOURS ORAL 04/18/20 14:00 07/13/20 13:59 04/20/20 13:36 Lidocaine (Xylocaine 1% MPF 5ml) 3.2 ml DAILY INJ 04/19/20 15:00 07/18/20 14:59 04/19/20 14:50 Metoprolol Tartrate (Lopressor) 25 mg Q12HR ORAL 04/16/20 21:00 07/15/20 20:59 04/19/20 21:49 Be Proctor MD Apr 21, 2020 00:44
[2020-04-21 04:00] VITALS: BP 125/75
[2020-04-21] MEDS: HYDROcodone/Acetamin 10/325 tab ORAL PRN ×2 (05:33→17:41)
[2020-04-21] MEDS: HydrALAZINE 50mg tab ORAL SCH ×2 (05:33→13:51)
[2020-04-21 07:06] LABS: BASOPHILS % (AUTO) 0.3 % (0.0-2.0); HEMATOCRIT 49.6 % (42.0-52.0); LYMPHOCYTES % (AUTO) 9.7 % (20.0-45.0); MEAN CORPUSCULAR VOLUME 85 FL (80-99); MONOCYTES % (AUTO) 8.9 % (1.0-10.0); PLATELET COUNT 313 K/UL (150-450); RED BLOOD COUNT 5.86 M/UL (4.70-6.10); RED CELL DISTRIBUTION WIDTH 16.3 % (11.6-14.8); WHITE BLOOD COUNT 8.6 K/UL (4.8-10.8)
[2020-04-21 07:26] LABS: PHOSPHORUS 3.8 MG/DL (2.5-4.9)
[2020-04-21 07:36] LABS: ALBUMIN/GLOBULIN RATIO 0.7 (1.0-2.7); BILIRUBIN,TOTAL 0.5 MG/DL (0.2-1.0); CALCIUM 9.3 MG/DL (8.5-10.1); CREATININE 2.3 MG/DL (0.55-1.30); POTASSIUM 4.9 MMOL/L (3.5-5.1)
[2020-04-21 08:30] VITALS: BP_SYST 137; BP_DIAS 7; BP_DIAS 87
--- NOTE | 2020-04-21 08:35 | General Progress Note ---
Subjective Date patient seen: Apr 21, 2020 Time patient seen: 07:00 - am Allergies: Uncoded Allergies: VITAMIN B (Allergy, Unknown, 04/11/20) Subjective HISTORY OF PRESENT ILLNESS: This is a 74-year-old male, who is being seen on the med/surg floor of [facility]. Patient in bed pain has been tolerated on the [place]. Has no new complaints at this time. REVIEW OF SYSTEMS: Denies rash, fever, chills, sweating, dizziness, drowsiness, blurred vision, sore throat, change in his weight. No nausea, vomiting, diarrhea, or blood in the stool or urine. No dysuria. Objective Last 24 Hour Vital Signs Date Time Temp Pulse Resp B/P (MAP) Pulse Ox O2 Delivery O2 Flow Rate FiO2 04/21/20 05:33 125/75 04/21/20 04:00 97.0 90 18 125/75 (92) 96 04/20/20 21:00 Room Air Room Air 04/20/20 21:00 82 123/75 04/20/20 20:00 97.7 82 16 123/75 (91) 96 04/20/20 16:00 98.1 79 17 121/86 (98) 96 04/20/20 13:36 129/83 04/20/20 12:00 98.4 89 19 129/83 (98) 95 04/20/20 09:00 70 126/78 04/20/20 09:00 70 126/78 Intake and Output 04/20/20 04/21/20 19:00 07:00 Intake Total 900 ml Output Total 200 ml Balance 900 ml -200 ml Other 900 ml Output Urine Total 200 ml # Bowel Movements 1 Laboratory Tests 04/21/20 06:45: White Blood Count 8.6, Red Blood Count 5.86, Hemoglobin 17.0, Hematocrit 49.6, Mean Corpuscular Volume 85, Mean Corpuscular Hemoglobin 28.9, Mean Corpuscular Hemoglobin Concent 34.2, Red Cell Distribution Width 16.3H, Platelet Count 313, Mean Platelet Volume 7.5, Neutrophils (%) (Auto) 81.0H, Lymphocytes (%) (Auto) 9.7L, Monocytes (%) (Auto) 8.9, Eosinophils (%) (Auto) 0.0, Basophils (%) (Auto) 0.3, Sodium Level 140, Potassium Level 4.9, Chloride Level 106, Carbon Dioxide Level 25, Anion Gap 9, Blood Urea Nitrogen 54H, Creatinine 2.3H, Estimat Glomerular Filtration Rate 33.8, Glucose Level 117H, Calcium Level 9.3, Phosphorus Level 3.8, Magnesium Level 2.0, Total Bilirubin 0.5, Aspartate Amino Transf (AST/SGOT) 28, Alanine Aminotransferase (ALT/SGPT) 36, Alkaline Ph osphatase 72, Total Protein 7.4, Albumin 3.0L, Globulin 4.4, Albumin/Globulin Ratio 0.7L Height (Feet): 6 Height (Inches): 1.00 Weight (Pounds): 132 Objective PHYSICAL EXAMINATION: GENERAL: Alert, awake, and oriented. LUNGS: Decreased breath sounds bilaterally. HEART: S1 and S2, regular. ABDOMEN: Soft and nontender. EXTREMITIES: No cyanosis. No clubbing. NEURO: No changes. Assessment/Plan Assessment/Plan: (1) Lumbar DDD (2) Lumbar Spondylosis (3) Lumbar Radiculopathy (4) Covid 19 Patient to be continued on [place] as needed. D/w Dr. Mendez and he concurred. Nicholas Escobedo Apr 21, 2020 08:35
[2020-04-21] MEDS: Aspirin EC 81mg tab ORAL SCH (08:51)
[2020-04-21] MEDS: Heparin 5000 units/ml inj SUBQ SCH (08:52)
[2020-04-21] MEDS: Docusate 100mg cap ORAL SCH (08:52)
[2020-04-21] MEDS: Furosemide 40mg tab ORAL SCH (08:53)
--- NOTE | 2020-04-21 09:43 | Pulmonology Progress Note ---
Subjective ROS Limited/Unobtainable: No Interval Events: none new; waiting on arrangement for transportation to his assisted living Constitutional: Reports: fatigue; Denies: fever HEENT: Repors: no symptoms Respiratory: Reports: no symptoms Cardiovascular: Reports: no symptoms Gastrointestinal/Abdominal: Denies: nausea, vomiting, diarrhea Genitourinary: Reports: no symptoms Psychiatric: Denies: depression Skin: Denies: rash Musculoskeletal: Denies: pain Allergies: Uncoded Allergies: VITAMIN B (Allergy, Unknown, 04/11/20) Subjective pt reports severe chronic leg/back pain despite am dose of [place]; pain scale 7/10 Objective Last 24 Hour Vital Signs Date Time Temp Pulse Resp B/P (MAP) Pulse Ox O2 Delivery O2 Flow Rate FiO2 04/21/20 08:51 113 137/7 04/21/20 08:49 113 137/7 04/21/20 08:30 97.5 113 18 137/7 (50) 96 04/21/20 05:33 125/75 04/21/20 04:00 97.0 90 18 125/75 (92) 96 04/20/20 21:00 Room Air Room Air 04/20/20 21:00 82 123/75 04/20/20 20:00 97.7 82 16 123/75 (91) 96 04/20/20 16:00 98.1 79 17 121/86 (98) 96 04/20/20 13:36 129/83 04/20/20 12:00 98.4 89 19 129/83 (98) 95 Intake and Output 04/20/20 04/21/20 19:00 07:00 Intake Total 900 ml Output Total 200 ml Balance 900 ml -200 ml Other 900 ml Output Urine Total 200 ml # Bowel Movements 1 Objective saturating well on RA General Appearance: no acute distress HEENT: normocephalic, mucous membranes moist Respiratory: chest wall non-tender, lungs clear Cardiovascular: normal peripheral pulses Abdomen: normal bowel sounds, soft, non tender Extremities: no cyanosis, no edema Laboratory Tests 04/21/20 06:45: White Blood Count 8.6, Red Blood Count 5.86, Hemoglobin 17.0, Hematocrit 49.6, Mean Corpuscular Volume 85, Mean Corpuscular Hemoglobin 28.9, Mean Corpuscular Hemoglobin Concent 34.2, Red Cell Distribution Width 16.3H, Platelet Count 313, Mean Platelet Volume 7.5, Neutrophils (%) (Auto) 81.0H, Lymphocytes (%) (Auto) 9.7L, Monocytes (%) (Auto) 8.9, Eosinophils (%) (Auto) 0.0, Basophils (%) (Auto) 0.3, Sodium Level 140, Potassium Level 4.9, Chloride Level 106, Carbon Dioxide Level 25, Anion Gap 9, Blood Urea Nitrogen 54H, Creatinine 2.3H, Estimat Glomerular Filtration Rate 33.8, Glucose Level 117H, Calcium Level 9.3, Phosphorus Level 3.8, Magnesium Level 2.0, Total Bilirubin 0.5, Aspartate Amino Transf (AST/SGOT) 28, Alanine Aminotransferase (ALT/SGPT) 36, Alkaline Phosphatase 72, Total Protein 7.4, Albumin 3.0L, Globulin 4.4, Albumin/Globulin Ratio 0.7L Current Medications Medications (Trade) Dose Ordered Sig/Lewis Route PRN Reason Start Time Stop Time Status Last Admin Dose Admin Acetaminophen (Tylenol) 650 mg Q4H PRN ORAL pain 1-3 04/11/20 18:00 05/11/20 17:59 04/12/20 18:10 Acetaminophen/ Hydrocodone Bitart ([place] 10/325) 1 tab BIDPRN PRN ORAL pain 4-10 04/20/20 17:15 04/27/20 17:14 04/21/20 05:33 Albuterol Sulfate (Proventil MDI) 2 puff Q4H PRN INH Shortness of Breath 04/16/20 13:45 07/15/20 13:44 Amlodipine Besylate (Norvasc) 10 mg DAILY ORAL 04/14/20 09:30 05/14/20 09:29 04/21/20 08:51 Aspirin (Ecotrin) 81 mg DAILY ORAL 04/15/20 09:00 05/30/20 08:59 04/21/20 08:51 Dexamethasone (Decadron) 6 mg DAILY ORAL 04/20/20 11:00 04/25/20 10:59 04/21/20 08:57 Dextrose (Dextrose 50%) 25 ml Q30M PRN IV Hypoglycemia 04/11/20 18:00 07/10/20 17:59 Dextrose (Dextrose 50%) 50 ml Q30M PRN IV Hypoglycemia 04/11/20 18:00 07/10/20 17:59 Docusate Sodium (Colace) 100 mg EVERY 12 HOURS ORAL 04/11/20 21:00 05/11/20 20:59 04/21/20 08:52 Ertapenem (INVanz) 0.5 gm Q24H IM 04/21/20 15:00 04/26/20 14:59 Famotidine (Pepcid) 40 mg DAILY ORAL 04/12/20 09:00 07/11/20 08:59 04/21/20 08:50 Furosemide (Lasix) 40 mg DAILY ORAL 04/20/20 09:00 05/20/20 08:59 04/21/20 08:53 Heparin Sodium (Porcine) (Heparin 5000 units/ml) 5,000 units EVERY 12 HOURS SUBQ 04/11/20 18:07 05/26/20 18:06 04/21/20 08:52 Hydralazine HCl (Apresoline) 100 mg EVERY 8 HOURS ORAL 04/18/20 14:00 07/13/20 13:59 04/21/20 05:33 Lidocaine (Xylocaine 1% MPF 5ml) 3.2 ml Q24H INJ 04/21/20 15:00 07/20/20 14:59 Metoprolol Tartrate (Lopressor) 25 mg Q12HR ORAL 04/16/20 21:00 07/15/20 20:59 04/21/20 08:49 Assessment/Plan Assessment/Plan 1. COVID-19 pneumonia. - Continue Decadron. Switched to PO - cont broad-spectrum Abx - CXR 04/14/2020 New small left mid to lower lung patchy opacity - CXR 04/16/2020 slightly increased opacities in the L lower lung and R mid and lower lung 2. Renal failure. - Renal US Negative for hydronephrosis - 04/16/2020 BUN and Cr improving - per renal 3. History of COPD. - Saturating well on RA - albuterol MDI added 4. Severe chronic leg/bag pain - per pain management - Currently on 10 mg [place] BID prn pain; reports chronic use 5. DVT prophylaxis - On Lovenox 6. Hyperkalemia; normalized - s/p Kayexalate - Lasix added 7. HTN - On Amlodipine - On Hydralazine prn - on diuretics continue home medications. Stable from pulmonology point of view for discharge on medical therapy. 04/17/2020 Covid-19 test neg; Will dc back to original place of assisted living in [place] - dc was planned for today; still awaiting on arrangements from the assisted living for transportation 04/19/2020 per RN, his place of assisted living will not accept him for anther 10-14 days due to his recent COVID-19 status despite his most recent negative COVID-19 result. manager critical care unit working on finding a temporary place of care until his assisted living will allow him to come back. 04/20/2020 transfer pt to med-surg unit The care of this patient was discussed with my supervising physician Time spent for this encounter was approximately 31 minutes Miguel Duarte Apr 21, 2020 09:43
--- NOTE | 2020-04-21 11:14 | Nephrology Progress Note ---
Assessment/Plan Plan #DEYSI on CKD- improving #COVID pneumonia #hypoxemic resp failure #leukocytosis #HTN- accelerated - check renal US-> no hydro, medical renal disease - add amlodipine 10mg daily - DC IVF - HOLD lasix oral 40mg daily - hydralazine 100mg TID - metop 25mg BID - continue antibiotics - zosyn and linezolid - monitor BMP, mag and phos - strict I&Os - avoid nephrotoxins - monitor weights Time spent 65 min Subjective ROS Limited/Unobtainable: No HEENT: Denies: no symptoms, eye pain, blurred vision, tearing, double vision, ear pain, ear discharge, nose pain, nose congestion, throat pain, throat swelling, mouth pain, mouth swelling, other Genitourinary: Denies: no symptoms, burning, discharge, frequency, flank pain, hematuria, incontinence, pain, urgency, other Neurologic/Psychiatric: Denies: no symptoms, anxiety, depressed, emotional problems, headache, numbness, paresthesia, pre-existing deficit, seizure, tingling, tremors, weakness, other Subjective Cr 2.3 will DC lasix breathing stable hypertensive renal US: Impression: Negative for hydronephrosis Echogenic kidneys bilaterally, associated with medical renal disease Incidental finding bilateral renal cysts. Objective Objective Last 24 Hour Vital Signs Date Time Temp Pulse Resp B/P (MAP) Pulse Ox O2 Delivery O2 Flow Rate FiO2 04/21/20 08:51 113 137/7 04/21/20 08:49 113 137/7 04/21/20 08:30 97.5 113 18 137/7 (50) 96 04/21/20 05:33 125/75 04/21/20 04:00 97.0 90 18 125/75 (92) 96 04/20/20 21:00 Room Air Room Air 04/20/20 21:00 82 123/75 04/20/20 20:00 97.7 82 16 123/75 (91) 96 04/20/20 16:00 98.1 79 17 121/86 (98) 96 04/20/20 13:36 129/83 04/20/20 12:00 98.4 89 19 129/83 (98) 95 Intake and Output 04/20/20 04/21/20 19:00 07:00 Intake Total 900 ml Output Total 200 ml Balance 900 ml -200 ml Other 900 ml Output Urine Total 200 ml # Bowel Movements 1 Laboratory Tests 04/21/20 06:45: White Blood Count 8.6, Red Blood Count 5.86, Hemoglobin 17.0, Hematocrit 49.6, Mean Corpuscular Volume 85, Mean Corpuscular Hemoglobin 28.9, Mean Corpuscular Hemoglobin Concent 34.2, Red Cell Distribution Width 16.3H, Platelet Count 313, Mean Platelet Volume 7.5, Neutrophils (%) (Auto) 81.0H, Lymphocytes (%) (Auto) 9.7L, Monocytes (%) (Auto) 8.9, Eosinophils (%) (Auto) 0.0, Basophils (%) (Auto) 0.3, Sodium Level 140, Potassium Level 4.9, Chloride Level 106, Carbon Dioxide Level 25, Anion Gap 9, Blood Urea Nitrogen 54H, Creatinine 2.3H, Estimat Glom erular Filtration Rate 33.8, Glucose Level 117H, Calcium Level 9.3, Phosphorus Level 3.8, Magnesium Level 2.0, Total Bilirubin 0.5, Aspartate Amino Transf (AST/SGOT) 28, Alanine Aminotransferase (ALT/SGPT) 36, Alkaline Phosphatase 72, Total Protein 7.4, Albumin 3.0L, Globulin 4.4, Albumin/Globulin Ratio 0.7L Height (Feet): 6 Height (Inches): 1.00 Weight (Pounds): 132 Rocco Messina M.D. Apr 21, 2020 11:14
[2020-04-21 12:00] VITALS: BP 126/74
--- NOTE | 2020-04-21 14:19 | Diagnostic Imaging Report ---
Indication: Shortness of breath Technique: Single AP view of the chest. Comparison: Chest radiograph dated 04/16/2020 Findings: The cardiomediastinal silhouette is unchanged in appearance. Again demonstrated are emphysematous changes of the lungs. There is a moderate left pleural effusion with associated compressive atelectasis. Bilateral upper lobe interstitial opacities are unchanged. No new airspace consolidation. No pneumothorax. IMPRESSION: No significant change in cardiopulmonary findings when compared to most recent examination.
[2020-04-21] MEDS ORDERED: Lidocaine 1% MPF 10mg/ml 5ml INJ SCH (15:00)
[2020-04-21] MEDS ORDERED: Ertapenem (INVanz) 1gm Inj IM SCH (15:00)
[2020-04-21 16:00] VITALS: BP 118/67
--- NOTE | 2020-04-21 17:14 | Cardiology Progress Note ---
Assessment/Plan Assessment/Plan 1. COVID-19 viral PNA antivirals and abx per ID CXR + interstitial disease 2. HTN - on multiple antihypertensives, improved 3. CAD s/p PCI and stent well preserved LV function, EF 65% ASA daily 3. HFpEF, chronic diastolic HF with preserved EF Lasix for diuresis IV fluids dc'd by nephro 3. COPD with exacerbation 4. DMII - insulin dependent 5. UTI; on abx per ID 6. DEYSI on CKD Lasix PO for diuresis, breathing easier, pt denies chest pain. Stable from cardiology point of view for discharge on medical therapy. Subjective ROS Limited/Unobtainable: No Cardiovascular: Reports: no symptoms Respiratory: Reports: no symptoms Gastrointestinal/Abdominal: Reports: no symptoms Genitourinary: Reports: no symptoms Subjective Breathing a little better today, on room air. Denies chest pain. Objective Last 24 Hour Vital Signs Date Time Temp Pulse Resp B/P (MAP) Pulse Ox O2 Delivery O2 Flow Rate FiO2 04/21/20 16:00 97.0 83 18 118/67 (84) 95 04/21/20 13:51 138/81 04/21/20 12:00 97.0 80 18 126/74 (91) 93 04/21/20 09:00 Room Air Room Air 04/21/20 08:51 113 137/7 04/21/20 08:49 113 137/7 04/21/20 08:30 97.5 113 18 137/87 (104) 96 04/21/20 08:30 97.5 113 18 137/7 (50) 96 04/21/20 05:33 125/75 04/21/20 04:00 97.0 90 18 125/75 (92) 96 04/20/20 21:00 Room Air Room Air 04/20/20 21:00 82 123/75 04/20/20 20:00 97.7 82 16 123/75 (91) 96 General Appearance: no apparent distress EENT: PERRL/EOMI Neck: no JVD Rhythm: NSR Cardiovascular: normal rate, regular rhythm Respiratory/Chest: no respiratory distress, no accessory muscle use Abdomen: soft Neurologic: oriented x 3 Intake and Output 04/20/20 04/21/20 19:00 07:00 Intake Total 900 ml Output Total 200 ml Balance 900 ml -200 ml Other 900 ml Output Urine Total 200 ml # Bowel Movements 1 Laboratory Tests Test 04/21/20 06:45 White Blood Count 8.6 K/UL (4.8-10.8) Red Blood Count 5.86 M/UL (4.70-6.10) Hemoglobin 17.0 G/DL (14.2-18.0) Hematocrit 49.6 % (42.0-52.0) Mean Corpuscular Volume 85 FL (80-99) Mean Corpuscular Hemoglobin 28.9 PG (27.0-31.0) Mean Corpuscular Hemoglobin Concent 34.2 G/DL (32.0-36.0) Red Cell Distribution Width 16.3 % (11.6-14.8) H Platelet Count 313 K/UL (150-450) Mean Platelet Volume 7.5 FL (6.5-10.1) Neutrophils (%) (Auto) 81.0 % (45.0-75.0) H Lymphocytes (%) (Auto) 9.7 % (20.0-45.0) L Monocytes (%) (Auto) 8.9 % (1.0-10.0) Eosinophils (%) (Auto) 0.0 % (0.0-3.0) Basophils (%) (Auto) 0.3 % (0.0-2.0) Sodium Level 140 MMOL/L (136-145) Potassium Level 4.9 MMOL/L (3.5-5.1) Chloride Level 106 MMOL/L (98-107) Carbon Dioxide Level 25 MMOL/L (21-32) Anion Gap 9 mmol/L (5-15) Blood Urea Nitrogen 54 mg/dL (7-18) H Creatinine 2.3 MG/DL (0.55-1.30) H Estimat Glomerular Filtration Rate 33.8 mL/min (>60) Glucose Level 117 MG/DL (74-106) H Calcium Level 9.3 MG/DL (8.5-10.1) Phosphorus Level 3.8 MG/DL (2.5-4.9) Magnesium Level 2.0 MG/DL (1.8-2.4) Total Bilirubin 0.5 MG/DL (0.2-1.0) Aspartate Amino Transf (AST/SGOT) 28 U/L (15-37) Alanine Aminotransferase (ALT/SGPT) 36 U/L (12-78) Alkaline Phosphatase 72 U/L (46-116) Total Protein 7.4 G/DL (6.4-8.2) Albumin 3.0 G/DL (3.4-5.0) L Globulin 4.4 g/dL Albumin/Globulin Ratio 0.7 (1.0-2.7) L Sandra Monique PA-C Apr 21, 2020 17:14
== END 2020-04-21 18:20 | disposition home or self-care (01) | DRG 177 ==
LOC: EDBD 11:20 → EMR 13:42 → 2E 13:55 → EDBEDREQ 16:07 → 2E 18:12 → 4E 04-19 23:43
DX: U07.1 COVID-19 (principal); J96.91 Respiratory failure, unspecified with hypoxia; J12.89 Other viral pneumonia; J44.1 Chronic obstructive pulmonary disease with (acute) exacerbation; J44.0 Chronic obstructive pulmonary disease with (acute) lower respiratory infection; N17.9 Acute kidney failure, unspecified; I13.0 Hypertensive heart and chronic kidney disease with heart failure and stage 1 through stage 4 chronic kidney disease, or unspecified chronic kidney disease; I50.32 Chronic diastolic (congestive) heart failure; N39.0 Urinary tract infection, site not specified; E11.22 Type 2 diabetes mellitus with diabetic chronic kidney disease; N18.9 Chronic kidney disease, unspecified; Z79.4 Long term (current) use of insulin; D64.9 Anemia, unspecified; M51.16 Intervertebral disc disorders with radiculopathy, lumbar region; B96.20 Unspecified Escherichia coli [E. coli] as the cause of diseases classified elsewhere; E87.5 Hyperkalemia; I25.10 Atherosclerotic heart disease of native coronary artery without angina pectoris; Z95.5 Presence of coronary angioplasty implant and graft
CPT/HCPCS: 36415; 71045; 76770; 80048; 80053; 81003; 82043; 82570; 82728; 83605; 83615; 83690; 83735; 83880; 84100; 84300; 84484; 85007; 85025; 85379; 85610; 85730; 86140; 87040; 87086; 87181; 93005; 93306; 96361; 96365; 96367; 96375; 99291; J7030; U0002